=== PATIENT | female | born 1935 | race Caucasian/White ===

== ENCOUNTER 2019-03-05 18:00 | Inpatient (IN) | payer MEDICARE, MEDICAID ==
[~2019-03-05] VITALS: Ht 172.7 cm; Wt 65.5 kg
[2019-03-05] MEDS ORDERED: PANTOPRAZOLE SO40 MG ORAL (18:12)
[2019-03-05] MEDS ORDERED: ARICEPT10 MG ORAL (18:12)
[2019-03-05 18:13] VITALS: BP 115/60
--- NOTE | 2019-03-05 18:13 | NUR ---
ED Nurse Note: Pt from [facility] brought in by EMS due to decrease in appetite and encephalopathy x 1 week. denies pain or CP. Noted pt to ask repetitive questions. AAO x1 (her name), follows commands with non labored breathing. Fall precautions are implemented: Side rails up, bed in lowest position.
--- NOTE | 2019-03-05 18:50 | Emergency Room Report ---
History of Present Illness General Chief Complaint: Generalized Weakness Source: Patient, Medical Record Present Illness HPI 84-year-old female history of dementia presents with failure to thrive, x1 day, patient according to nursing notes has not eating, unknown aggravating relieving factors, severity is moderate, constant, patient states she feels fine however she is currently demented, she keeps talking about [place]. Allergies: Coded Allergies: No Known Allergies (Unverified , 03/05/19) Patient History Limited by: medical condition - Dementia Now: No Reviewed Nursing Documentation: PMH: Agreed; PSxH: Agreed Nursing Documentation-PMH Past Medical History: No History, Except For Hx Hypertension: Yes Hx COPD: Yes Hx Gastrointestinal Problems: Yes - GERD Review of Systems All Other Systems: negative except mentioned in HPI Physical Exam Vital Signs Date Time Temp Pulse Resp B/P (MAP) Pulse Ox O2 Delivery O2 Flow Rate FiO2 03/05/19 18:03 97.9 87 18 109/55 (73) 99 Room Air Sp02 EP Interpretation: reviewed, normal General Appearance: well appearing, no apparent distress, alert Head: normocephalic, atraumatic Eyes: bilateral eye PERRL, bilateral eye EOMI ENT: uvula midline, dry mucus membranes Neck: supple, thyroid normal, supple/symm/no masses Respiratory: lungs clear, no respiratory distress, no retraction, no accessory muscle use Cardiovascular #1: normal peripheral pulses, regular rate, rhythm, no edema, no gallop, no murmur Gastrointestinal: non tender, soft, no guarding, no rebound Musculoskeletal: normal inspection Neurologic: alert, oriented x3 Psychiatric: mood/affect normal Skin: no rash, warm/dry Medical Decision Making Diagnostic Impression: Primary Impression: Failure to thrive Qualified Codes: R62.7 - Adult failure to thrive Additional Impression: Dehydration ER Course 84-year-old female history of dementia presents with altered mental status, failure to thrive, dehydration, differential diagnosis includes mention UTI, sepsis, patient afebrile here, low suspicion for sepsis, patient seems uncooperative, patient requires multiple re-directive questions, Patient with an elevated BUN to creatinine ratio, patient with dry mucous membranes will rehydrate patient here Attempted to get a CT brain, patient refused would not stay still, low suspicion for any acute intracranial pathology. Patient admitted to Dr. Winters EKG Diagnostic Results EKG Time: 18:32 EP Interpretation: NSR, rate 79, QTc 424, no acute ST elevations, normal axis Rhythm Strip Diag. Results Rhythm Strip Time: 20:12 EP Interpretation: yes Rate: 70 Rhythm: NSR, no PVC's, no ectopy Chest X-Ray Diagnostic Results Chest X-Ray Diagnostic Results : Chest X-Ray Ordered: Yes # of Views/Limited/Complete: 1 View Indication: Other - Weakness EP Interpretation: Yes Interpretation: no consolidation, no effusion, no pneumothorax, no acute cardiopulmonary disease Impression: No acute disease Electronically Signed by: Matthias Garrido MD Last Vital Signs Date Time Temp Pulse Resp B/P (MAP) Pulse Ox O2 Delivery O2 Flow Rate FiO2 03/05/19 18:03 97.9 87 18 109/55 (73) 99 Room Air Disposition: ADMITTED INPATIENT Condition: Stable Referrals: NON PHYSICIAN (PCP) Mtathias Garrido MD Mar 05, 2019 18:50
--- NOTE | 2019-03-05 18:50 | NUR ---
ED Nurse Note: Pt taken to CT and stable.
--- NOTE | 2019-03-05 19:05 | NUR ---
ED Nurse Note: Pt back from CT and staff reports that pt refused procedure. Dr renner was notified.
--- NOTE | 2019-03-05 19:14 | NUR ---
HAND-OFF: Report given to mil WILLIS.
[2019-03-05 19:29] LABS: BASOPHILS % (AUTO) 0.7 % (0.0-2.0); EOSINOPHILS % (AUTO) 1.7 % (0.0-3.0); HEMATOCRIT 43.5 % (37.0-47.0); HEMOGLOBIN 14.2 G/DL (12.0-16.0); MEAN CORPUSCULAR VOLUME 91 FL (80-99); MONOCYTES % (AUTO) 6.4 % (1.0-10.0); NEUTROPHILS % (AUTO) 67.3 % (45.0-75.0); PLATELET COUNT 168 K/UL (150-450); RED BLOOD COUNT 4.79 M/UL (4.20-5.40); RED CELL DISTRIBUTION WIDTH 11.2 % (11.6-14.8); WHITE BLOOD COUNT 7.2 K/UL (4.8-10.8)
[2019-03-05 19:36] LABS: INR 0.9 (0.9-1.1)
[2019-03-05 19:44] LABS: ANION GAP 7 mmol/L (5-15); BLOOD UREA NITROGEN 30 mg/dL (7-18); CALCIUM 9.6 MG/DL (8.5-10.1); CARBON DIOXIDE 29 MMOL/L (21-32); CHLORIDE 104 MMOL/L (98-107); CREATININE 1.2 MG/DL (0.55-1.30); POTASSIUM 3.7 MMOL/L (3.5-5.1); SODIUM 140 MMOL/L (136-145)
[2019-03-05] MEDS ORDERED: Haloperidol 5mg/ml Inj IM ONE (19:45)
[2019-03-05] MEDS ORDERED: LORazepam Inj 2mg/ml 1ml IM ONE (19:45)
[2019-03-05] MEDS ORDERED: DiphenhydrAMINE 50mg/ml Inj IM ONE (19:45)
[2019-03-05 19:52] LABS: AMMONIA 11 umol/L (11-32)
[2019-03-05 19:58] LABS: ALANINE AMINOTRANSFERASE 18 U/L (12-78); ALBUMIN 3.9 G/DL (3.4-5.0); ALKALINE PHOSPHATASE 84 U/L (46-116); ASPARTATE AMINO TRANSFERASE 16 U/L (15-37); BILIRUBIN,TOTAL 0.3 MG/DL (0.2-1.0); CKMB 0.7 NG/ML (0.0-3.6); CREATINE KINASE 56 U/L (26-308); PHOSPHORUS 3.4 MG/DL (2.5-4.9)
--- NOTE | 2019-03-05 21:00 | NUR ---
ED Nurse Note: pT REFUSED STRAIGHT CATH AND VRE SWAB.
--- NOTE | 2019-03-05 21:25 | NUR ---
TRANSFER TO FLOOR: Patient transferred to as ordered, per Dr Winters. Report given to LAZARO Paredes. Belongings and medications given to . Family and or S/O informed of transfer.
[2019-03-05 21:35] VITALS: BP 148/96
[2019-03-05] MEDS ORDERED: Milk of Magnesia 30ml Ud ORAL PRN (22:30)
[2019-03-06] VITALS: BP 145/60
[2019-03-06 04:00] VITALS: BP 140/71
--- NOTE | 2019-03-06 07:34 | NUR ---
HAND-OFF: Report given to Mina Burns RN.
--- NOTE | 2019-03-06 07:38 | NUR ---
NURSE NOTES: PATIENT RECEIVED FROM LAZARO JHAVERI. PATIENT RECEIVED STABLE AND ALERT, EATING BREAKFAST IN BED. PATIENT HAS IV SITE RIGHT A/C CLEAN DRY AND INTACT, SALINE LOCKED. BED IN THE LOW AND LOCKED POSITION WITH BED ALARM ON, NO IV FLUIDS RUNNING. WILL C Addendum: 03/06/19 at 0740 by Mina Burns RN WILL CONTINUE TO MONITOR PATIENT.
[2019-03-06 08:00] VITALS: BP 116/60
--- NOTE | 2019-03-06 08:01 | NUR ---
NURSE NOTES: CALLED [facility] TO ORDER [facility]. [facility] SAID [facility] HAVE NONE AVAILABLE AT THIS TIME AND WILL SEND ONE UP WHEN ONE BECOMES AVAILABLE.
[2019-03-06] MEDS: Donepezil 10mg tab ORAL SCH (09:08)
--- NOTE | 2019-03-06 09:23 | Diagnostic Imaging Report ---
Indication: Shortness of breath Technique: One view of the chest Comparison: none Findings: There is some atelectasis at the left lung base. The remainder of the lungs and pleural spaces are clear. The heart size is normal. Impression: Left lateral basilar atelectasis.
--- NOTE | 2019-03-06 09:30 | NUR ---
RD ASSESSMENT & RECOMMENDATIONS SEE CARE ACTIVITY FOR COMPLETE ASSESSMENT DAILY ESTIMATED NEEDS: Needs based on Cardiac, advanced age 64kg 25-30 kcals/kg 7295-1833 total kcals 1-1.2 g protein/kg 65-78 g total protein 20-25 mL/kg 0229-4316 total fluid mLs NUTRITION DIAGNOSIS: Swallowing difficulty r/t dysphagia, h/o dementia as evidenced by pt on ms ground texture diet, adm w/ reduced po x1 week [employer]. CURRENT DIET: MARIA L ms ground PO DIET RECOMMENDATIONS: W/ poor po intake rec LIBERALIZED REGULAR DIET (texture per REALTIME COURT REPORTER) ADDITIONAL RECOMMENDATIONS: 1) Per SNF-> HT: 5'8" WT: 143# 2) Add Ensure TID w/ meals 3) Kcal count to evaluate po intake adequacy 4) Check lytes daily, replete as needed 5) Weekly weights on calibrated bed scale 6) REALTIME COURT REPORTER eval for appropriate texture for max po intake/ acceptance
[2019-03-06 12:00] VITALS: BP 138/55
[2019-03-06 16:00] VITALS: BP 111/53
[2019-03-06] MEDS ORDERED: Omnipaque-300 100ml vial INJ PRN (19:00)
--- NOTE | 2019-03-06 19:32 | NUR ---
HAND-OFF: Report given to LAZARO JHAVERI.
--- NOTE | 2019-03-06 19:44 | NUR ---
NURSE NOTES: Received patient comfortably sleeping.
--- NOTE | 2019-03-06 19:48 | NUR ---
NURSE NOTES: Left message to Aliyah Chatman( salesperson surgical appliances ) to return call at [phone] for telephone consent for US guided biopsy of left breast mass and CT of chest with contrast.
[2019-03-06 20:00] VITALS: BP 121/64
--- NOTE | 2019-03-06 22:34 | History & Physical ---
History of Present Illness General Date patient seen: Mar 06, 2019 Time patient seen: 10:15 Reason for Hospitalization: Generalized Weakness Present Illness Allergies: Coded Allergies: No Known Allergies (Unverified , 03/05/19) Medication History Scheduled Donepezil Hcl* (Aricept*), 10 MG ORAL DAILY, (Reported) Pantoprazole* (Pantoprazole*), 40 MG ORAL DAILY, (Reported) Patient History Limited by: medical condition History Provided By: Medical Record Healthcare decision maker ANUPAMA MENDOZA Resuscitation status Full Code Advanced Directive on File No Social History Social History: (1) Failure to thrive Review of Systems Review of Symptoms General ROS: She appears very thin Psychological ROS: Schizophrenic Ophthalmic ROS: no visual changes or eye irritation ENT ROS: no nasal congestion, hearing loss, dizziness Allergy and Immunology ROS: no allergic symptoms or urticaria Hematological and Lymphatic ROS: no swollen glands, unusual bleeding or bruising Endocrine ROS: no polyuria, polydipsia, weight changes, temperature intolerance Respiratory ROS: decreased BS Cardiovascular ROS: no chest pain or dyspnea on exertion Gastrointestinal ROS: denies abdominal pain, bright red blood in stool. Musculoskeletal ROS: Markedly reduced lean body mass Neurological ROS: no TIA or stroke symptoms Dermatological ROS: no new or changing skin lesions, rashes or pruritis Left breast mass. Physical Exam Physical Exam General appearance: Thin female not very cooperative which is her baseline Head: Normocephalic, without obvious abnormality, atraumatic Eyes: conjunctivae/corneas clear. PERRL, EOM's intact. Fundi benign Throat: Lips, mucosa, and tongue normal. Dry mucus membrane Neck: supple, symmetrical, trachea midline, no adenopathy, thyroid: not enlarged, symmetric, no tenderness/mass/nodules, no carotid bruit and no JVD Lungs: decreased BS bilateral. No Consolidation Heart: regular rate and rhythm, S1, S2 normal, no murmur, click, rub or gallop Abdomen: soft, non-tender. Bowel sounds normal. No masses, no organomegaly Extremities: extremities normal, atraumatic, no cyanosis or edema Pulses: 2+ and symmetric Skin: Skin color, texture, turgor reduced. No rashes or lesions Neurologic: Grossly normal psychotic and doesn't listen Left breast mass firm. Last 24 Hour Vital Signs Date Time Temp Pulse Resp B/P (MAP) Pulse Ox O2 Delivery O2 Flow Rate FiO2 03/06/19 20:55 Room Air 03/06/19 20:00 98.4 67 20 121/64 (83) 94 03/06/19 16:00 97.5 63 18 111/53 (72) 94 03/06/19 12:00 97.2 57 20 138/55 (82) 96 03/06/19 09:00 Room Air 03/06/19 08:00 97.0 71 19 116/60 (78) 94 03/06/19 04:00 97.8 94 16 140/71 (94) 96 03/06/19 00:00 98.0 90 16 145/60 (88) 97 Height (Feet): 5 Height (Inches): 8.00 Weight (Pounds): 147 Medications Current Medications Medications (Trade) Dose Ordered Sig/León Route PRN Reason Start Time Stop Time Status Last Admin Dose Admin Acetaminophen (Tylenol) 650 mg Q4H PRN ORAL Mild Pain/Temp > 100.5 03/05/19 22:30 04/04/19 22:29 Donepezil HCl (Aricept) 10 mg DAILY ORAL 03/06/19 09:00 04/05/19 08:59 03/06/19 09:08 Iohexol (OMNIPAQUE-300 100ml) 100 ml ONCE PRN INJ RADIOLOGY PROCEDURE 03/06/19 19:00 03/08/19 23:59 Magnesium Hydroxide (Mom) 30 ml DAILYPRN PRN ORAL Constipation 03/05/19 22:30 04/04/19 22:29 Pantoprazole (Protonix) 40 mg DAILY@0630 ORAL 03/06/19 06:30 04/05/19 06:29 Assessment/Plan Problem List: (1) Failure to thrive SNOMED: 71604852 Qualifiers: Qualified Codes: R62.7 - Adult failure to thrive (2) Hypertension ICD Codes: I10 - Essential (primary) hypertension SNOMED: 30555603 (3) Chronic obstructive pulmonary disease (COPD) ICD Codes: J44.9 - Chronic obstructive pulmonary disease, unspecified SNOMED: 60645122 (4) Schizo affective schizophrenia ICD Codes: F25.0 - Schizoaffective disorder, bipolar type SNOMED: 336449210 (5) Dementia ICD Codes: F03.90 - Unspecified dementia without behavioral disturbance SNOMED: 51369640 (6) Breast cancer ICD Codes: C50.919 - Malignant neoplasm of unspecified site of unspecified female breast SNOMED: 565111016 Status: stable Status Narrative Patient with schizophrenia and multiple medical problems, and renal insufficiency has left breast mass. She will have US guided bx CT with contrast of the chest. Surgery consulted already. Will have psych consult. MIPS Hospital declaration INPATIENT level of care is warranted for this patient because patient is a 89 year old with who presents with suspicion of . I have a high level of concern because . Patient is at high risk for . Plan of care/treatment include . Patient care is expected to be greater than 2 midnights. OBSERVATION level of care is warranted for this patient. Patient is a 89 year old with who presents with . Patient will be admitted for 1 midnight, but if additional night(s) is/are necessary, patient will be converted to inpatient status for the entire hospitalization Disposition: Once the patient is stable to leave the hospital, I anticipate the patient will likely be discharged to the following environment: Estimated discharge date: I spent 70 minutes on this patient's case, and minutes was dedicated to counseling and/or care coordination. MIPS ([employer]it-based Incentive Payment System) Applicable CPT: 52710, 10145 CHECK ALL THAT ARE MET: Measure #5 (CHF): All ages. Prescribe JESSENIA/ARB upon discharge for patients with left ventricular systolic dysfunction. If not, the reason is clearly documented in the medical chart. Measure #8 (CHF): All ages. Prescribe a beta karon upon discharge for patients with left ventricular systolic dysfunction. If not, the reason is clearly documented in the medical chart. Measure #47 Advance care plan or surrogate decision maker documented in the medical record. Measure #130 The provider has documented, updated, or reviewed the patients current medication list and has documented it in the patients note. Measure #374 (All): Send report to referring provider. Measure #407(Sepsis due to MSSA bacteremia): Age 18+ Patient treated with a beta-lactam antibiotic (Nafcillin, Oxacillin or Cefazolin) as definitive therapy. MEDICAL COMPLEXITY High complexity medical decision making (need 2/3 categories) Problem - need 4 points Acute/new problem with new plan for workup (4 points, 1 max) Acute/new problem without additional workup (3 points, 1 max) Unstable chronic problem actively being managed (2 point each, 2 max) Stable chronic problem actively being managed (1 point each, 2 max) Self-limited/transient process (constipation, muscle ache, etc) (1 point each , 2 max) Data - need 4 points Reviewed labs/imaging studies (1 points, 2 max) Independent review of imaging (EKG, xrays, etc) (2 points, 2 max) Discussed case with consult/other MD/RN (2 points, 2 max) High Risk - qualify if have one of the following: Severe exacerbation of acute problem, acute mental status change, IV narcotics , monitoring drug levels (vancomycin, INR, tacrolimus etc) Jose Francisco Winters MD Mar 06, 2019 22:34
[2019-03-07] VITALS (7 sets, daily range): BP systolic 111–158; BP diastolic 54–78
--- NOTE | 2019-03-07 07:10 | NUR ---
HAND-OFF: Report given to Mina Burns RN.
--- NOTE | 2019-03-07 07:20 | NUR ---
NURSE NOTES: PATIENT HANDOFF RECEIVED FROM LAZARO JHAVERI. PATIENT OBSERVED IN RESTING IN BED, NO VISIBLE SIGNS OF DISTRESS. PATIENT IV SITE HAS SOME DRIED BLOOD, WILL CHANGE DRESSING AND ASSESS IV SITE AND REPLACE IF NECESSARY. BED IS IN THE LOW AND LOCKED POSITION WITH CALL LIGHT IN REACH. WILL CONTINUE TO MONITOR PATIENT.
[2019-03-07] MEDS: Donepezil 10mg tab ORAL SCH (08:05)
--- NOTE | 2019-03-07 11:00 | NUR ---
NURSE NOTES: CONTACTED DR SANTIAGO AFTER RADIOLOGY MENTIONED THAT HOSPITAL POLICY IS NOT TO SCREEN INPATIENTS FOR MALIGNANCY AND ALSO TO INFORM THE DR THAT WE DO NOT HAVE A MAMMOGRAM MACHINE AT THE HOSPITAL, THEREFORE THE NEEDLE BIOPSY COULD NOT BE PERFORMED. DR STATED THAT HE WANTED JUST THE CT WITH CONTRAST. INFORMED DR THAT PATIENT CANNOT GIVE CONSENT NOR CAN THE CONSERVATOR THE PROCEDURE IS INVASIVE. TOLD PATIENT HE NEEDS TO CHART THAT THE PATIENT NEEDS THE PROCEDURE IN ORDER TO GET ROUND THE CONSENT. DR SANTIAGO STATED HE WOULD PUT THIS IN THE NOTES.
--- NOTE | 2019-03-07 11:46 | NUR ---
NURSE NOTES: PATIENT CONFUSED AND AGITATED STATING; " I AM [facility], I CAN DO WHAT I LIKE" DOES NOT UNDERSTAND WHERE SHE IS AND KEEPS SAYING SHE IS GOING TO GO HOME. PROVIDED REALITY ORIENTATION TO PATIENT AND EXPLAINED THAT SHE IS IN THE HOSPITAL, BUT PATIENT PERSISTS TO GET OUT OF BED. PATIENT IS WEAK AND UNSTEADY AND I AM CONCERNED FOR PATIENT SAFETY WITH REGARDS TO FALL RISK. PATIENT ALSO REMOVED IV SITE. DUE TO PATIENTS AGITATION I AM ADMINISTERING THE PRN ATIVAN.
[2019-03-07] MEDS: LORazepam 1mg tab ORAL PRN ×2 (11:51→22:10)
--- NOTE | 2019-03-07 13:28 | General Progress Note ---
Assessment/Plan Problem List: (1) Failure to thrive in adult ICD Codes: R62.7 - Failure to thrive in adult SNOMED: 245702663 Qualifiers: Qualified Codes: R62.7 - Adult failure to thrive (2) Hypertension ICD Codes: I10 - Essential (primary) hypertension SNOMED: 29175623 (3) Chronic obstructive pulmonary disease (COPD) ICD Codes: J44.9 - Chronic obstructive pulmonary disease, unspecified SNOMED: 49321177 (4) Schizo affective schizophrenia ICD Codes: F25.0 - Schizoaffective disorder, bipolar type SNOMED: 735441123 (5) Dementia ICD Codes: F03.90 - Unspecified dementia without behavioral disturbance SNOMED: 26995734 (6) Breast cancer ICD Codes: C50.919 - Malignant neoplasm of unspecified site of unspecified female breast SNOMED: 330693486 Status: stable Status Narrative She is stable. She will need further evaluation of her chest to see if she has any significant lymphadenopathy. She need to have CT of chest with contrast. Her renal function is stable and she can be given contrast for the study. Assessment/Plan: She will be discharged and she will have US guided bx of mammogram as outpatient. Following that surgical evaluation. Subjective Date patient seen: Mar 07, 2019 ROS Limited/Unobtainable: Yes Constitutional: Reports: no symptoms HEENT: Reports: no symptoms Cardiovascular: Reports: no symptoms Respiratory: Reports: no symptoms Gastrointestinal/Abdominal: Reports: no symptoms Genitourinary: Reports: no symptoms Neurologic/Psychiatric: Reports: no symptoms Endocrine: Reports: no symptoms Hematologic/Lymphatic: Reports: no symptoms Allergies: Coded Allergies: No Known Allergies (Unverified , 03/05/19) Objective Last 24 Hour Vital Signs Date Time Temp Pulse Resp B/P (MAP) Pulse Ox O2 Delivery O2 Flow Rate FiO2 03/07/19 12:00 98.1 98 20 141/74 (96) 98 03/07/19 08:13 Room Air 03/07/19 08:00 98.1 93 20 145/72 (96) 100 03/07/19 04:00 99.0 85 20 141/61 (87) 94 03/07/19 00:00 99.1 74 18 153/78 (103) 94 03/06/19 20:55 Room Air 10/10/19 20:00 98.4 67 20 121/64 (83) 94 03/06/19 16:00 97.5 63 18 111/53 (72) 94 Intake and Output 03/06/19 03/07/19 18:59 06:59 Intake Total 1300 ml 200 ml Output Total 4 ml Balance 1296 ml 200 ml Intake Oral 1300 ml 200 ml Output Urine Total 4 ml # Voids 4 3 # Bowel Movements 3 Height (Feet): 5 Height (Inches): 8.00 Weight (Pounds): 147 General Appearance: no apparent distress EENT: PERRL/EOMI Neck: non-tender Cardiovascular: normal peripheral pulses Respiratory/Chest: lungs clear Abdomen: normal bowel sounds, non tender, soft Extremities: normal range of motion, non-tender Edema: no edema noted Arm (L), no edema noted Arm (R), no edema noted Leg (L), no edema noted Leg (R), no edema noted Pedal (L), no edema noted Pedal (R), no edema noted Generalized Neurologic: soil 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
--- NOTE | 2019-03-07 14:17 | General Surgery Progress Note ---
General Surgery-Progress Note Subjective Chief Complaint: lump in left breast Objective Last 24 Hour Vital Signs Date Time Temp Pulse Resp B/P (MAP) Pulse Ox O2 Delivery O2 Flow Rate FiO2 03/07/19 12:00 98.1 98 20 141/74 (96) 98 03/07/19 08:13 Room Air 03/07/19 08:00 98.1 93 20 145/72 (96) 100 03/07/19 04:00 99.0 85 20 141/61 (87) 94 03/07/19 00:00 99.1 74 18 153/78 (103) 94 03/06/19 20:55 Room Air 03/06/19 20:00 98.4 67 20 121/64 (83) 94 03/06/19 16:00 97.5 63 18 111/53 (72) 94 I&O Intake and Output 03/06/19 03/07/19 19:00 07:00 Intake Total 1300 ml 200 ml Output Total 4 ml Balance 1296 ml 200 ml Intake Oral 1300 ml 200 ml Output Urine Total 4 ml # Voids 4 3 # Bowel Movements 3 Respiratory: clear Abdomen: soft, flat, non-tender, present bowel sounds Additional Comments left breast hard mass one inch in diameter margines not clear but mobile suspicious for malignancy Assessment Additional Comments Left breast mass R/O malignancy Plan Additional Comments requires excisional biopsy but there is problem about consent Christos Barrientos MD Mar 07, 2019 14:17
--- NOTE | 2019-03-07 14:32 | NUR ---
NURSE NOTES: PATIENT RESTING COMFORTABLY IN BED, NO SIGNS OF AGITATION OR ANXIETY.
--- NOTE | 2019-03-07 15:13 | Consultation ---
History of Present Illness General Chief Complaint: Generalized Weakness Present Illness Allergies: Coded Allergies: No Known Allergies (Unverified , 03/05/19) Medication History Scheduled Donepezil Hcl* (Aricept*), 10 MG ORAL DAILY, (Reported) Pantoprazole* (Pantoprazole*), 40 MG ORAL DAILY, (Reported) Patient History Healthcare decision maker ANUPAMA MENDOZA Resuscitation status Full Code Advanced Directive on File No Physical Exam Last 24 Hour Vital Signs Date Time Temp Pulse Resp B/P (MAP) Pulse Ox O2 Delivery O2 Flow Rate FiO2 03/07/19 12:00 98.1 98 20 141/74 (96) 98 03/07/19 08:13 Room Air 03/07/19 08:00 98.1 93 20 145/72 (96) 100 03/07/19 04:00 99.0 85 20 141/61 (87) 94 03/07/19 00:00 99.1 74 18 153/78 (103) 94 03/06/19 20:55 Room Air 03/06/19 20:00 98.4 67 20 121/64 (83) 94 03/06/19 16:00 97.5 63 18 111/53 (72) 94 Intake and Output 03/06/19 03/07/19 19:00 07:00 Intake Total 1300 ml 200 ml Output Total 4 ml Balance 1296 ml 200 ml Intake Oral 1300 ml 200 ml Output Urine Total 4 ml # Voids 4 3 # Bowel Movements 3 Height (Feet): 5 Height (Inches): 8.00 Weight (Pounds): 147 Medications Current Medications Medications (Trade) Dose Ordered Sig/León Route PRN Reason Start Time Stop Time Status Last Admin Dose Admin Acetaminophen (Tylenol) 650 mg Q4H PRN ORAL Mild Pain/Temp > 100.5 03/05/19 22:30 04/04/19 22:29 Donepezil HCl (Aricept) 10 mg DAILY ORAL 03/06/19 09:00 04/05/19 08:59 03/07/19 08:05 Iohexol (OMNIPAQUE-300 100ml) 100 ml ONCE PRN INJ RADIOLOGY PROCEDURE 03/06/19 19:00 03/08/19 23:59 Lorazepam (Ativan) 2 mg Q6H PRN ORAL For Anxiety 03/06/19 22:45 03/13/19 22:44 03/07/19 11:51 Magnesium Hydroxide (Mom) 30 ml DAILYPRN PRN ORAL Constipation 03/05/19 22:30 04/04/19 22:29 Pantoprazole (Protonix) 40 mg DAILY@0630 ORAL 03/06/19 06:30 04/05/19 06:29 03/07/19 06:02 Assessment/Plan Assessment/Plan: Oncology Consultation KATHLEEN MD: Dennis Winters RFC: Left beast lump r/o cancer DOS: 03/07/19 ID 84-year-old female history of dementia presents with failure to thrive, x1 day, patient according to nursing notes has not eating, unknown aggravating relieving factors, severity is moderate, constant, patient states she feels fine however she is currently demented, she keeps talking about [place]. Onc was consulted for breast mass, at this time have issue obtaining consent to do a biopsy of the left breast, surgeon has seen her. Allergies: No Known Allergies (Unverified , 03/05/19) Patient History Limited by: medical condition - Dementia Now: No Reviewed Nursing Documentation: PMH: Agreed; PSxH: Agreed Nursing Documentation - PMH Past Medical History: No History, Except For Hx Hypertension: Yes Hx COPD: Yes Hx Gastrointestinal Problems: Yes - GERD Review of Systems All Other Systems: negative except mentioned in HPI Physical Exam Vitals: reviewed General Appearance: NAD HEENT: normocephalic, atraumatic Neck: non-tender, normal alignment Breast: left breast with 1-2 cm mass, mobile, difficult to access borders Respiratory/Chest: normal breath sounds bilaterally Cardiovascular/Chest: normal peripheral pulses, normal rate Abdomen: normal bowel sounds, soft, nontender Extremities: normal range of motion Labs: noted Imaging: reviewed Assessment and Recs; # Left breast mass with soft borders --> reviewed clinical exam, still needs to have a mammo done --> excisional biopsy v us guided biopsy --> agree with ct with contrast of chest for local staging --> seen by surg, needs consent, have called them and dw RN # Failure to thrive (FTT) - decreased bmi and low protein --> have ordered for cea level --> will obtain q3 day caloric counts --> may consider mirtazapine as appetite stimulant --> GI consult on a prn basis, as needed for endosc # Dehydration --> ivf have been given # Confusion --> potentially dementia related --> psych eval prn --> has conservator # Dvt oox scds The timing of this note does not necessarily reflect the time of the patient was seen. Greatly appreciate consultation. Josué Viera MD Mar 07, 2019 15:13
--- NOTE | 2019-03-07 16:15 | Consultation ---
DATE OF CONSULTATION: 03/07/2019 REASON FOR CONSULTATION: Mass in the left breast. HISTORY OF PRESENT ILLNESS: This is an 84-year-old female with dementia and few medical problems was admitted to hospital for failure to thrive. The physical examination had shown the lump in her left breast. The patient has dementia and it is not clear how long she has had the mass. There is no history of weight loss. There is no history of mammogram. The only history has been obtained from the file and the physician. PAST MEDICAL HISTORY: Apparently she is not allergic to any medication. She has history of COPD, hypertension, dementia, and there is a question about schizophrenia. PAST SURGICAL HISTORY: The patient denies any surgeries but she has a scar of midline incision below the umbilicus. MEDICATIONS: She is on Aricept and PIP, pantoprazole. SOCIAL HISTORY: The patient is an 84-year-old female, resident of care home. There is no history of drinking and smoking. REVIEW OF SYSTEMS: Unobtainable due to the dementia. PHYSICAL EXAMINATION: GENERAL: The patient appeared to be a well-developed, well-nourished, 84-year-old female lying in bed, in no acute distress. HEENT: Head, normocephalic and atraumatic. Eyes, pupils have sluggish reaction. Mouth is clear but edentulous. NECK: There is no palpable thyromegaly or adenopathy. CHEST: Clear to auscultation and percussion. HEART: There is no gallop or murmur. S1 and S2 are within normal limits. BREASTS: Large and symmetrical. There is no skin and nipple changes. She has a palpable mass in the left lower quadrant of the left breast. This is on the lateral lower quadrant of the left breast, this mass is about 1 inch in diameter, hard. The margins are not clear but it is a mobile. Axilla, there is no adenopathy. ABDOMEN: Soft and flat. There is no palpable organomegaly. She has a scar of the midline incision below the umbilicus. EXTREMITIES: Within normal limits. ASSESSMENT: Left breast mass. RECOMMENDATIONS: The patient requires excisional biopsy of this mass but at this time the patient has dementia and consent has to be obtained as conservator. Christos Barrientos M.D. DR: Sonya JOB#: [id number] CC:
--- NOTE | 2019-03-07 19:03 | NUR ---
NURSE NOTES: I WAS ADVISED BY ONLINE EDITOR THAT DOCTOR CAN OVERWRITE CONSENT IF THE PROCEDURE IS EMERGENT AND NECESSARY, TOLD THIS TO DR BYRNE AND INFORMED HIM HE WOULD NEED TO WRITE THIS IN HIS NOTES. COULD NOT FIND ANY NOTES FROM DR HERNANDEZ STATING THAT THE PROCEDURE IS NECESSARY AND EMERGENT AND THEREFORE CAN BE DONE WITHOUT CONSENT FROM THE PATIENT. THE CONSERVATOR CANNOT GIVE CONSENT FOR INVASIVE PROCEDURES. NOT SURE WHAT CAN BE DONE IN THIS SITUATION. I
--- NOTE | 2019-03-07 19:55 | NUR ---
NURSE NOTES: Received patient awake,verbal,confused,follows simple command,resting in bed comfortably without complaints.
--- NOTE | 2019-03-07 19:59 | NUR ---
HAND-OFF: Report given to LAZARO JHAVERI.
--- NOTE | 2019-03-08 03:15 | NUR ---
NURSE NOTES: Received pt to continue care. Pt AAO x 1, confused, wondering around. On room air. IV site intact. Fall risk maintained. Bed locked, lowest position, side rails up x 2, call light within reach. Will continue to monitor.
--- NOTE | 2019-03-08 03:18 | NUR ---
HAND-OFF: Report given to Nazia Inman RN.
[2019-03-08 04:00] VITALS: BP 139/68
--- NOTE | 2019-03-08 05:15 | Consultation ---
DATE OF CONSULTATION: CONSULTING PHYSICIAN: Owen Higgins M.D. HISTORY OF PRESENT ILLNESS: The patient is an 84-year-old female with a history of schizoaffective disorder, chronic obstructive pulmonary disease, dementia, breast cancer, hypertension, failure to thrive, who has been admitted to the hospital for medical stabilization. The patient is presenting with waxing and waning consciousness, episodes of agitation. Upon my evaluation, the patient was a poor historian, was unable to answer the questions. She was moaning. She did not know that she was in the hospital. The patient was unable to understand, process, communicate in a rational manner. PAST PSYCHIATRIC HISTORY: Schizophrenia, dementia. PAST MEDICAL HISTORY: Chronic obstructive pulmonary disease, hypertension, failure to thrive. ALLERGIES: No known drug allergies. SUBSTANCE ABUSE HISTORY: No known history of illicit drug use or alcohol. MENTAL STATUS EXAMINATION: The patient is asleep, arousable, confused, disoriented. Mood is neutral. Affect is flat. Thought process, there is a paucity of thought content. Thought content, no suicidal or homicidal ideation. ASSESSMENT: [place] I Schizophrenia by history. Dementia. [place] II Deferred. [place] III As above. [place] IV Low. [place] V 20. PLAN: 1. The patient will be started on Zyprexa. 2. The patient lacks capacity to make decisions. 3. Provide the patient with reality orientation and supportive therapy. Owen Higgins M.D. DR: KURT JOB#: [id number] CC:
--- NOTE | 2019-03-08 07:22 | NUR ---
HAND-OFF: Report given to LAZARO Benton.
--- NOTE | 2019-03-08 07:36 | NUR ---
NURSE NOTES: Patient received in stable condition, resting in bed. Breathing unlabored on room air. No signs of SOB or pain observed. IV site on right arm patent and intact. Bed locked in lowest position, bed alarm is on. Call light placed within reach, will continue to monitor.
[2019-03-08 08:00] VITALS: BP 120/72
[2019-03-08] MEDS: LORazepam 1mg tab ORAL PRN ×2 (08:15→18:16)
--- NOTE | 2019-03-08 11:12 | NUR ---
NURSE NOTES: RN attempted to reach patient's conservatory Zaida Chatman for consent for procedure. Voicemail left requesting a return call. Unit phone number provided.
[2019-03-08 12:00] VITALS: BP 125/68
[2019-03-08] MEDS: OLANZapine 2.5mg tab ORAL SCH ×2 (12:51→17:16)
[2019-03-08 16:00] VITALS: BP 130/72
--- NOTE | 2019-03-08 17:26 | Cardiology Report ---
APPROVED REPORT EKG Measurement Heart [id number] Normal sinus rhythm Possible Left atrial enlargement Borderline ECG
--- NOTE | 2019-03-08 18:03 | NUR ---
NURSE NOTES: Unable to maintain IV site, PMD made aware.
--- NOTE | 2019-03-08 19:15 | NUR ---
NURSE NOTES: Received pt resting in bed. Pt AAO x 1, confused, unsteady gait, trying to get out of bed. Bilateral soft wrist restraints applied per Dr. Higgins. No IV access, MD aware. Fall risk maintained. Bed locked, lowest position, side rails up x 2, call light within reach. Will continue to monitor.
--- NOTE | 2019-03-08 19:25 | NUR ---
HAND-OFF: Report given to Nazia WILLIS.
[2019-03-08 20:00] VITALS: BP 145/83
[2019-03-09] VITALS: BP 148/84
[2019-03-09 04:00] VITALS: BP 126/70
--- NOTE | 2019-03-09 04:30 | Progress Note ---
DATE: 03/08/2019 SUBJECTIVE: The patient is more agitated today. Attempting to get out of bed and was unmanageable. The patient has been receiving the olanzapine. The patient has poor cognition and is unable to answer the questions. MENTAL STATUS EXAMINATION: The patient is disoriented and confused. Mood is agitated. Affect is flat. Thought process, there is a paucity of thought content. Thought content, no suicidal or homicidal ideation. Cognition is impaired. ASSESSMENT: Dementia with behavior disturbance. PLAN: We will continue to follow and readjust the medications. Owen Higgins M.D. DR: RENETTA JOB#: [id number] CC: JD
--- NOTE | 2019-03-09 07:31 | NUR ---
HAND-OFF: Report given to LAZARO Argueta. Addendum: 03/09/19 at 0737 by Ellie Ritchie RN ERROR: LAZARO Mandujano on wrong account
--- NOTE | 2019-03-09 07:40 | NUR ---
NURSE NOTES: Received report from LAZARO Mandujano. Patient sleeping. On room air, no signs of distress or labored breathing. No IV access. MD aware. Restraints on, bilateral soft wrist. Bed in lowest position. Will continue to monitor.
[2019-03-09 08:00] VITALS: BP 125/70
--- NOTE | 2019-03-09 11:26 | General Progress Note ---
Assessment/Plan Problem List: (1) Failure to thrive in adult ICD Codes: R62.7 - Failure to thrive in adult SNOMED: 417775889 Qualifiers: Qualified Codes: R62.7 - Adult failure to thrive (2) Hypertension ICD Codes: I10 - Essential (primary) hypertension SNOMED: 09905670 (3) Chronic obstructive pulmonary disease (COPD) ICD Codes: J44.9 - Chronic obstructive pulmonary disease, unspecified SNOMED: 44906856 (4) Schizo affective schizophrenia ICD Codes: F25.0 - Schizoaffective disorder, bipolar type SNOMED: 659569022 (5) Dementia ICD Codes: F03.90 - Unspecified dementia without behavioral disturbance SNOMED: 79693956 (6) Breast cancer ICD Codes: C50.919 - Malignant neoplasm of unspecified site of unspecified female breast SNOMED: 841796094 Status: stable, other - Very aggitated Assessment/Plan: She will be discharged and she will have US guided bx of mammogram as outpatient. Following that surgical evaluation. patient is agitated and being evaluated by psychiatry. Will discharge when neuro status improves Subjective Date patient seen: Mar 08, 2019 Time patient seen: 19:00 ROS Limited/Unobtainable: Yes Constitutional: Reports: other - confused HEENT: Reports: no symptoms Cardiovascular: Reports: no symptoms Respiratory: Reports: cough Gastrointestinal/Abdominal: Reports: no symptoms Genitourinary: Reports: no symptoms Neurologic/Psychiatric: Reports: weakness, other - very aggitated and needs restraint Endocrine: Reports: no symptoms Hematologic/Lymphatic: Reports: no symptoms Allergies: Coded Allergies: No Known Allergies (Unverified , 03/05/19) Objective Last 24 Hour Vital Signs Date Time Temp Pulse Resp B/P (MAP) Pulse Ox O2 Delivery O2 Flow Rate FiO2 03/09/19 09:00 Room Air 03/09/19 08:00 97.7 79 18 125/70 (88) 92 03/09/19 04:00 97.2 85 20 126/70 (88) 96 03/09/19 00:00 97.5 80 20 148/84 (105) 96 03/08/19 20:16 Room Air 03/08/19 20:00 97.7 88 20 145/83 (103) 96 03/08/19 16:00 97.7 90 18 130/72 (91) 96 03/08/19 12:00 97.7 92 18 125/68 (87) 95 Intake and Output 03/08/19 03/09/19 19:00 07:00 Intake Total 200 ml Balance 200 ml Intake Oral 200 ml # Voids 4 3 Height (Feet): 5 Height (Inches): 8.00 Weight (Pounds): 147 General Appearance: agitated EENT: PERRL/EOMI Neck: non-tender Cardiovascular: regular rhythm Respiratory/Chest: lungs clear, other - Left breast mass Abdomen: normal bowel sounds Extremities: normal range of motion Edema: no edema noted Arm (L), no edema noted Arm (R), no edema noted Leg (L), no edema noted Leg (R), no edema noted Pedal (L), no edema noted Pedal (R), no edema noted Generalized Neurologic: alert, motor weakness, disoriented Skin: normal pigmentation Jose Francisco Winters MD Mar 09, 2019 11:26
[2019-03-09 12:00] VITALS: BP 124/69
--- NOTE | 2019-03-09 13:33 | Hematology/Onc Progress Note ---
Assessment/Plan Assessment/Plan Assessment and Recs; # Left breast mass with soft borders on exam, requires conservator for bx --> reviewed clinical exam, still needs to have a mammo done --> excisional biopsy v us guided biopsy --> agree with ct with contrast of chest for local staging --> seen by surg, needs consent, have called them and jose RN # Failure to thrive (FTT) - decreased bmi and low protein --> have ordered for cea level --> will obtain q3 day caloric counts --> may consider mirtazapine as appetite stimulant --> GI consult on a prn basis, as needed for endosc # Dehydration --> ivf have been given --> bmp ordered # Confusion --> potentially dementia related --> psych eval prn --> has conservator # Dvt oox scds The timing of this note does not necessarily reflect the time of the patient was seen. Greatly appreciate consultation. Subjective Constitutional: Denies: no symptoms, chills, fever, malaise, weakness, other HEENT: Denies: no symptoms, eye pain, blurred vision, tearing, double vision, ear pain, ear discharge, nose pain, nose congestion, throat pain, throat swelling, mouth pain, mouth swelling, other Cardiovascular: Denies: no symptoms, chest pain, edema, irregular heart rate, lightheadedness, palpitations, syncope, other Genitourinary: Denies: no symptoms, burning, discharge, frequency, flank pain, hematuria, incontinence, pain, urgency, other Endocrine: Denies: no symptoms, excessive sweating, flushing, intolerance to cold, intolerance to heat, increased hunger, increased thirst, increased urine, unexplained weight gain, unexplained weight loss, other Allergies: Coded Allergies: No Known Allergies (Unverified , 03/05/19) Subjective 10.13: remains altered, seen by [facility], potential dc once improves ams Objective Objective Current Medications Medications (Trade) Dose Ordered Sig/León Route PRN Reason Start Time Stop Time Status Last Admin Dose Admin Acetaminophen (Tylenol) 650 mg Q4H PRN ORAL Mild Pain/Temp > 100.5 03/05/19 22:30 04/04/19 22:29 Lorazepam (Ativan) 2 mg Q6H PRN ORAL For Anxiety 03/06/19 22:45 03/13/19 22:44 03/08/19 18:16 Magnesium Hydroxide (Mom) 30 ml DAILYPRN PRN ORAL Constipation 03/05/19 22:30 04/04/19 22:29 Olanzapine (ZyPREXA) 5 mg TID ORAL 03/09/19 09:00 04/08/19 08:59 03/09/19 09:12 Pantoprazole (Protonix) 40 mg DAILY@0630 ORAL 03/06/19 06:30 04/05/19 06:29 03/09/19 06:07 Last 24 Hour Vital Signs Date Time Temp Pulse Resp B/P (MAP) Pulse Ox O2 Delivery O2 Flow Rate FiO2 03/09/19 09:00 Room Air 03/09/19 08:00 97.7 79 18 125/70 (88) 92 03/09/19 04:00 97.2 85 20 126/70 (88) 96 03/09/19 00:00 97.5 80 20 148/84 (105) 96 03/08/19 20:16 Room Air 03/08/19 20:00 97.7 88 20 145/83 (103) 96 03/08/19 16:00 97.7 90 18 130/72 (91) 96 03/08/19 12:00 97.7 92 18 125/68 (87) 95 03/08/19 09:00 Room Air 03/08/19 08:00 97.8 89 20 120/72 (88) 95 03/08/19 04:00 98.0 97 19 139/68 (91) 97 03/07/19 23:48 97.8 97 20 111/71 (84) 97 03/07/19 20:06 Room Air 03/07/19 20:00 97.3 82 19 158/76 (103) 97 03/07/19 16:00 97.5 83 20 129/54 (79) 96 Intake and Output 03/08/19 03/09/19 19:00 07:00 Intake Total 200 ml Balance 200 ml Intake Oral 200 ml # Voids 4 3 Height (Feet): 5 Height (Inches): 8.00 Weight (Pounds): 147 Objective Vitals: reviewed General Appearance: NAD HEENT: normocephalic, atraumatic Neck: non-tender, normal alignment Breast: left breast with 1-2 cm mass, mobile, difficult to access borders Respiratory/Chest: normal breath sounds bilaterally Cardiovascular/Chest: normal peripheral pulses, normal rate Abdomen: normal bowel sounds, soft, nontender Extremities: normal range of motion Josué Viera MD Mar 09, 2019 13:33
[2019-03-09 16:00] VITALS: BP 130/81
--- NOTE | 2019-03-09 17:00 | NUR ---
NURSE NOTES: Patient will have CT of chest with contrast on Sunday, per Dr. Winters. Patient has no family to signs and conservator said they cannot sign. Dr. Winters will consent. Charge nurse aware.
--- NOTE | 2019-03-09 19:41 | NUR ---
HAND-OFF: Report given to LAZARO Luong.
[2019-03-09 20:07] VITALS: BP 133/75
--- NOTE | 2019-03-09 21:30 | NUR ---
NURSE NOTE: Pt is oriented to self, VS are stable. Orders reviewed. Pt is uncooperative with physical assessment and kept repeating, "Don't touch me". Soft wrist restraints are intact, pulses are palpable and capillary refill is +2 on each hand. No evidence of skin break down on wrists. Refused to wear SCD's. Bed is low and locked with alarm activated. Call elizondo is within reach. Will continue to monitor.
[2019-03-10] VITALS: BP 126/67
[2019-03-10 04:10] VITALS: BP 118/68
--- NOTE | 2019-03-10 04:22 | NUR ---
NURSE NOTE: Pt has began desating in the mid to high 80's on room air with 0000 VS. O2 at 2 L NC initiated, however, patient remained in 80's. O2 titrated to 3L, pt sats now in low to mid 90's. Will continue to monitor.
[2019-03-10 07:05] LABS: HEMATOCRIT 47.2 % (37.0-47.0); HEMOGLOBIN 15.5 G/DL (12.0-16.0); MEAN CORPUSCULAR VOLUME 90 FL (80-99); PLATELET COUNT 175 K/UL (150-450); RED BLOOD COUNT 5.25 M/UL (4.20-5.40); RED CELL DISTRIBUTION WIDTH 12.2 % (11.6-14.8); WHITE BLOOD COUNT 13.6 K/UL (4.8-10.8)
--- NOTE | 2019-03-10 07:21 | NUR ---
HAND-OFF: Report given to Carmen.
--- NOTE | 2019-03-10 07:45 | NUR ---
NURSE NOTES: Patient received in stable condition, sleeping in bed. Breathing unlabored with nasal cannula. Bilateral soft restraints on wrists, circulation intact. HOB elevated, bed locked in lowest position. Call light placed within reach, will continue to monitor.
[2019-03-10 08:00] VITALS: BP 124/67
--- NOTE | 2019-03-10 09:07 | Hematology/Onc Progress Note ---
Assessment/Plan Assessment/Plan Assessment and Recs; # Left breast mass with soft borders on exam, requires conservator for bx --> reviewed clinical exam, still needs to have a mammo done --> excisional biopsy v us guided biopsy (meed consent) --> agree with ct with contrast of chest for local staging --> seen by surg, needs consent, have called them and balaji RN --> signed consent for scan # Failure to thrive (FTT) - decreased bmi and low protein --> have ordered for cea level --> will obtain q3 day caloric counts --> may consider mirtazapine as appetite stimulant --> GI consult on a prn basis, as needed for endosc # Dehydration --> ivf have been given --> bmp ordered # Confusion --> potentially dementia related --> psych eval prn --> has conservator # Dvt ppx lovenox sq The timing of this note does not necessarily reflect the time of the patient was seen. Greatly appreciate consultation. Subjective Constitutional: Denies: no symptoms, chills, fever, malaise, weakness, other HEENT: Denies: no symptoms, eye pain, blurred vision, tearing, double vision, ear pain, ear discharge, nose pain, nose congestion, throat pain, throat swelling, mouth pain, mouth swelling, other Cardiovascular: Denies: no symptoms, chest pain, edema, irregular heart rate, lightheadedness, palpitations, syncope, other Respiratory: Denies: no symptoms, cough, shortness of breath, SOB with excertion, SOB at rest, sputum, wheezing, other Gastrointestinal/Abdominal: Denies: no symptoms, abdomen distended, abdominal pain, black stools, tarry stools, blood in stool, constipated, diarrhea, difficulty swallowing, nausea, poor appetite, poor fluid intake, rectal bleeding , vomiting, other Neurologic/Psychiatric: Denies: no symptoms, anxiety, depressed, emotional problems, headache, numbness, paresthesia, pre-existing deficit, seizure, tingling, tremors, weakness, other Allergies: Coded Allergies: No Known Allergies (Unverified , 03/05/19) Subjective .13: remains altered, seen by [facility], potential dc once improves ams 03/10: Balaji rn, consent for scan was signed Objective Objective Current Medications Medications (Trade) Dose Ordered Sig/León Route PRN Reason Start Time Stop Time Status Last Admin Dose Admin Acetaminophen (Tylenol) 650 mg Q4H PRN ORAL Mild Pain/Temp > 100.5 03/05/19 22:30 04/04/19 22:29 Lorazepam (Ativan) 2 mg Q6H PRN ORAL For Anxiety 03/06/19 22:45 03/13/19 22:44 03/08/19 18:16 Magnesium Hydroxide (Mom) 30 ml DAILYPRN PRN ORAL Constipation 03/05/19 22:30 04/04/19 22:29 Olanzapine (ZyPREXA) 5 mg TID ORAL 03/09/19 09:00 04/08/19 08:59 03/09/19 09:12 Pantoprazole (Protonix) 40 mg DAILY@0630 ORAL 03/06/19 06:30 04/05/19 06:29 03/10/19 05:36 Last 24 Hour Vital Signs Date Time Temp Pulse Resp B/P (MAP) Pulse Ox O2 Delivery O2 Flow Rate FiO2 03/10/19 08:00 98.1 90 18 124/67 (86) 93 03/10/19 04:10 98.4 95 20 118/68 (85) 93 03/10/19 00:00 97.3 99 20 126/67 (86) 91 03/09/19 21:13 Room Air 03/09/19 20:07 97.9 86 20 133/75 (94) 98 03/09/19 16:00 98.0 83 18 130/81 (97) 95 03/09/19 12:00 97.7 81 18 124/69 (87) 94 03/09/19 09:00 Room Air 03/09/19 08:00 97.7 79 18 125/70 (88) 92 03/09/19 04:00 97.2 85 20 126/70 (88) 96 03/09/19 00:00 97.5 80 20 148/84 (105) 96 03/08/19 20:16 Room Air 03/08/19 20:00 97.7 88 20 145/83 (103) 96 03/08/19 16:00 97.7 90 18 130/72 (91) 96 03/08/19 12:00 97.7 92 18 125/68 (87) 95 Intake and Output 03/09/19 03/10/19 19:00 07:00 Intake Total 500 ml Balance 500 ml Other 500 ml # Voids 2 Labs Test 03/10/19 06:15 White Blood Count 13.6 K/UL (4.8-10.8) Red Blood Count 5.25 M/UL (4.20-5.40) Hemoglobin 15.5 G/DL (12.0-16.0) Hematocrit 47.2 % (37.0-47.0) Mean Corpuscular Volume 90 FL (80-99) Mean Corpuscular Hemoglobin 29.6 PG (27.0-31.0) Mean Corpuscular Hemoglobin Concent 32.9 G/DL (32.0-36.0) Red Cell Distribution Width 12.2 % (11.6-14.8) Platelet Count 175 K/UL (150-450) Mean Platelet Volume 7.7 FL (6.5-10.1) Neutrophils (%) (Auto) % (45.0-75.0) Lymphocytes (%) (Auto) % (20.0-45.0) Monocytes (%) (Auto) % (1.0-10.0) Eosinophils (%) (Auto) % (0.0-3.0) Basophils (%) (Auto) % (0.0-2.0) Differential Total Cells Counted 100 Neutrophils % (Manual) 78 % (45-75) Lymphocytes % (Manual) 8 % (20-45) Monocytes % (Manual) 5 % (1-10) Eosinophils % (Manual) 1 % (0-3) Basophils % (Manual) 0 % (0-2) Band Neutrophils 8 % (0-8) Platelet Estimate Adequate Platelet Morphology Normal Red Blood Cell Morphology Normal Height (Feet): 5 Height (Inches): 8.00 Weight (Pounds): 147 Objective Vitals: reviewed General Appearance: NAD HEENT: normocephalic, atraumatic Neck: non-tender, normal alignment Breast: left breast with 1-2 cm mass, mobile, difficult to access borders Respiratory/Chest: normal breath sounds b/l Cardiovascular/Chest: normal peripheral pulses, normal rate Abdomen: normal bowel sounds, soft, nontender Extremities: normal range of motion Josué Viera MD Mar 10, 2019 09:07
[2019-03-10] MEDS ORDERED: Enoxaparin 40mg Inj SUBQ SCH (09:15)
[2019-03-10] MEDS: LORazepam 1mg tab ORAL PRN (09:19)
--- NOTE | 2019-03-10 09:53 | NUR ---
NURSE NOTES: Patient accompanied by techs for CT chest.
[2019-03-10 12:00] VITALS: BP 121/62
--- NOTE | 2019-03-10 13:58 | NUR ---
CASE MANAGEMENT: INITIAL REVIEW 84 YO F BIBA FROM [facility] CC: GEN WEAKNESS PMHx: COPD. HTN. GERD. SI:FTT. DEHYDRATION. T 97.9 HR 87 RR 18 B/P 109/55 SATS 99% ON RA BUN 30 GLU 118 BNP 214 IS: CXR Impression: Left lateral basilar atelectasis. PATIENT ADMITTED TO MED/SURG 03/05/2019 @ 1852 DCP: PATIENT TO BE DISCHARGED TO HOME ONCE MEDICALLY CLEARED. PLAN OF CARE: EXCISIONAL BIOPSY LEFT BREAST MASS
--- NOTE | 2019-03-10 15:30 | Diagnostic Imaging Report ---
Clinical Indication: Chest pain, left breast mass Technique: IV administration nonionic contrast. Spiral acquisition obtained through the chest. Multiplanar reconstructions generated. Total dose length product 1031 mGycm. CTDIvol(s) 21 mGy. Dose reduction achieved using automated exposure control Comparison: none Findings: There is imaging examination due to motion artifact. Irregular opacities in the bilateral lung apices likely represent areas of scarring. Other ill-defined areas of opacity are seen in the posterior right lower lobe and in the right infrahilar region. A more discrete irregular 13 mm lobulated/spiculated lesion is seen in the posterior aspect of the left upper lobe. There is a small subpleural nodule just peripheral to this.. Small cystic spaces are present bilaterally. There is dependent atelectasis of the inferior lower lobes bilaterally. No definite nodules are demonstrated. No effusions. No congestion. There is a sliding-type hiatal hernia. There is wall thickening of the distal esophagus. The heart size is normal. There is a small amount of pericardial fluid anteriorly. There are prominent but not frankly enlarged mediastinal lymph nodes. There is a large mass in the lower pole of the left thyroid lobe. This measures 4 x 2.9 x 6.7 cm. This contains some calcifications. It is heterogeneous. There is a mass in the posteromedial left breast. This measures 2 cm long axis dimension and demonstrates slightly lobulated slightly spiculated borders. There is left axillary adenopathy, with a node measuring 3.2 x 1.6 cm. No right axillary lymphadenopathy. Bones demonstrate a vertebral plana type burst/compression fracture of the L1 vertebral body. This demonstrates approximately 6 mm of posterior retropulsion and approximately 70% height loss anteriorly. The included upper abdominal anatomy demonstrates pancreatic atrophy and calcification. The gallbladder demonstrates a 6 mm focal soft tissue attenuation abnormality at the fundus. Unusually prominent vessels without discrete mass are seen within segment 2 of the liver. Impression: 2 cm left breast mass, concerning for neoplasm particularly given. Stated clinical findings Left axillary adenopathy is likely metastatic Left upper lobe parenchymal opacity. This could represent an area of scarring, primary neoplasm, or metastatic neoplasm. Other parenchymal opacities in the right lower lobe, appearance most suggestive of acute inflammatory or postinflammatory process, but underlying mass lesions are not excludable. 4 x 2.9 x 6.7 cm left lower pole thyroid mass. Consider further evaluation with ultrasound Slight axial hiatal hernia. Wall thickening of the distal esophagus may reflect esophagitis L1 vertebral body vertebra plana type burst/compression fracture with posterior retropulsion. Acuity indeterminate although suspect not acute. Consider MRI for better characterization if this is clinically relevant 6 mm area of focal soft tissue attenuation wall thickening at the gallbladder fundus. This may represent a wall adherent calculus versus a small polyp The CT scanner at [facility] is accredited by the [employer] and the scans are performed using protocols designed to limit radiation exposure to as low as reasonably achievable to attain images of sufficient resolution adequate for diagnostic evaluation.
[2019-03-10 16:00] VITALS: BP 124/70
--- NOTE | 2019-03-10 19:37 | NUR ---
HAND-OFF: Report given to Nisha RN.
--- NOTE | 2019-03-10 19:51 | NUR ---
NURSE NOTES: RECEIVED PT FROM LAZARO MOLINA. PT IS ASLEEP, ON NASAL CANULA 2L, NO ACUTE DISTRESS NOTED. VSS. IV ON RIGHT HAND 22G IS INTACT AND PATENT. BED IS LOCKED AND LOW, BED ALARMS ACTIVE, SIDE RAILS UP X2 AND CALL LIGHT IS WITHIN REACH.
[2019-03-10 20:00] VITALS: BP 109/62
[2019-03-11] VITALS: BP 103/59
--- NOTE | 2019-03-11 03:45 | Progress Note ---
DATE: 03/10/2019 SUBJECTIVE: The patient is uncooperative and is having episodes of agitation, uncooperative with the care, disoriented, and is unable to participate in the evaluation. Less agitated. MENTAL STATUS EXAMINATION: The patient is alert, poor memory, is unable to be engaged during the evaluation. Mood is anxious. Affect is flat. Thought process, disorganized. Thought content, no suicidal or homicidal ideation. Cognition is impaired. Insight and judgment is impaired. ASSESSMENT: 1. Dementia with behavior disturbance. 2. Acute encephalopathy. PLAN: 1. We will continue the current psychotropic medications. 2. Provide the patient with reality orientation and supportive therapy. Owen Higgins M.D. DR: KURT JOB#: [id number] CC:
[2019-03-11 04:00] VITALS: BP 119/72
--- NOTE | 2019-03-11 04:00 | NUR ---
NURSE NOTES: PATIENT HAD A CHANGE IN CONDITION. DESATURATED AT 78%. RAPID RESPONSE INITIATED. CALLED AND LEFT MESSAGE WITH PRIMARY DR. HERNANDEZ. PT WAS TRANSFERRED TO [address] [place] [address]. REPORT GIVEN TO LAZARO OLIVEIRA. BELONGING LIST WAS REVIEWED AND SIGNED.
--- NOTE | 2019-03-11 04:30 | NUR ---
NURSE NOTES: received a transferred patient from after Rapid respond,patient became ST and desaturated,received bedside report from Nisha,RN.Patient tolerated N/C well with 2L/min,no s/s of pain,no respiratory distress noted,site monitor applied,BS active in all quadrants,pt on bilateral wrist soft restrains on safety issue d/t removing devices,IV asymptomatic,intact on R hand 22G,bed secured in a low safety position,call light within a reach,will continue to monitor,pt' placed on a room close to the station,belongings list signed.
--- NOTE | 2019-03-11 04:39 | Diagnostic Imaging Report ---
Indication: Shortness of breath Technique: One view of the chest Comparison: 03/05/2019 Findings: And development of infiltrate at the right lung base. There is some atelectasis at the left lung base which appears increased from the prior study. The upper lungs are clear. The pleural spaces are grossly clear. Impression: New right basilar infiltrate, since prior study 03/05/2019 Increasing left basilar atelectasis and possibly associated consolidation This agrees with the preliminary interpretation provided overnight by [facility].
[2019-03-11] MEDS ORDERED: LORazepam 1mg tab ORAL PRN (04:45)
[2019-03-11] MEDS ORDERED: Milk of Magnesia 30ml Ud ORAL PRN (05:00)
[2019-03-11 05:53] LABS: HEMATOCRIT 45.9 % (37.0-47.0); HEMOGLOBIN 15.2 G/DL (12.0-16.0); MEAN CORPUSCULAR VOLUME 90 FL (80-99); PLATELET COUNT 166 K/UL (150-450); RED BLOOD COUNT 5.11 M/UL (4.20-5.40); RED CELL DISTRIBUTION WIDTH 12.4 % (11.6-14.8); WHITE BLOOD COUNT 13.1 K/UL (4.8-10.8)
[2019-03-11 06:00] LABS: ANION GAP 13 mmol/L (5-15); BLOOD UREA NITROGEN 54 mg/dL (7-18); CALCIUM 9.8 MG/DL (8.5-10.1); CARBON DIOXIDE 24 MMOL/L (21-32); CHLORIDE 106 MMOL/L (98-107); SODIUM 143 MMOL/L (136-145)
[2019-03-11] MEDS ORDERED: Piperacillin/Tazobactam 3.375 GM in NS 110 ML IVPB SCH (06:15)
--- NOTE | 2019-03-11 06:50 | NUR ---
NEUROLOGY TECHNICIAN Note: NEUROLOGY TECHNICIAN was called at 3:45 by charge nurse LAZARO Ayala, and notified MD Winters. Pt transferred to [facility] at 4:30. See NEUROLOGY TECHNICIAN documentation form for full report.
--- NOTE | 2019-03-11 07:10 | NUR ---
NURSE NOTES: Received pt from LAZARO Bucio. Patient is lethargic/drowsy. Responds to pain stimuli. MAYONNAISE MIXER this morning at 4am. Breathing is labored but even. Bronchi heard bilateral breath sounds. Patient is on a non-rebreather 10L, Spo2 100%. SR on pathology collector in 70's. Afebrile. RH 22G running 1/2NS@100ml/hr. Patient is incontinent, purwick in place. Bed locked, alarmed and in lowest position. Will continue plan of care.
--- NOTE | 2019-03-11 07:20 | NUR ---
HAND-OFF: Report given to LAZARO Benz.Patient stable,sleeping,IV fluid running.
[2019-03-11 08:00] VITALS: BP 125/102
--- NOTE | 2019-03-11 08:00 | NUR ---
NURSE NOTES: Reminded Dr. Higgins to e-sign restraints.
[2019-03-11] MEDS: Albuterol/Ipratropium 3ml neb HHN SCH ×5 (08:20→23:34)
--- NOTE | 2019-03-11 08:30 | NUR ---
NURSE NOTES: Attempted to feed breakfast for patient, she spat out her food and refused to take another bite. Patient still drowsy. Dr. Larry notified. ST quintana ordered.
--- NOTE | 2019-03-11 08:54 | NUR ---
RADIOLOGY DEPT., CHEST X-RAY PERFORMED POST RAPID RESPONSE CALL BY TECH:YOUSUF
[2019-03-11] MEDS ORDERED: Enoxaparin 40mg Inj SUBQ SCH (09:00)
[2019-03-11 09:08] LABS: ANION GAP 9 mmol/L (5-15); BLOOD UREA NITROGEN 55 mg/dL (7-18); CALCIUM 9.9 MG/DL (8.5-10.1); CARBON DIOXIDE 27 MMOL/L (21-32); CHLORIDE 107 MMOL/L (98-107); POTASSIUM 4.2 MMOL/L (3.5-5.1); SODIUM 143 MMOL/L (136-145)
[2019-03-11 09:19] LABS: ALANINE AMINOTRANSFERASE 15 U/L (12-78); ALBUMIN 3.3 G/DL (3.4-5.0); ALBUMIN/GLOBULIN RATIO 0.6 (1.0-2.7); ALKALINE PHOSPHATASE 67 U/L (46-116); ASPARTATE AMINO TRANSFERASE 20 U/L (15-37); BILIRUBIN,TOTAL 0.8 MG/DL (0.2-1.0)
[2019-03-11] MEDS: Piperacillin/Tazobactam 3.375 GM in NS 110 ML IVPB SCH ×2 (09:33→17:16)
[2019-03-11] MEDS: Enoxaparin Sodium 300mg/3ml vial SUBQ SCH (09:34)
--- NOTE | 2019-03-11 11:43 | NUR ---
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 CURRENT DIET: MARIA L ms ground PO DIET RECOMMENDATIONS: LIBERALIZED REGULAR DIET (texture per TRAWL NET MAKER) + Ensure TID ENTERAL NUTRITION RECOMMENDATIONS: Glucerna 1.2 @ 60ml/hr x 24 hrs to provide 1440ml, 1728kcal, 86g prot, 1159ml free water * If TF part of POC and indicated, obtain GI access. * Rec carb controlled TF formula of Glucerna 1.2 for mildly elev FBGs (136 148) * Initiate Glucerna 1.2 @ 20ml/hr x 6 hrs * Advance TF 10ml q 4-6 hrs as tolerated to goal rate. * TF @ goal will provide 100% est kcal/prot needs ADDITIONAL RECOMMENDATIONS: 1) Per SNF-> HT: 5'8" WT: 143# 2) Rec to recalibrate bedscale wt -> bedscale wt on 03/1148=870wkp vs EMR wt 147lbs 3) F/up w/ TRAWL NET MAKER eval 4) Monitor PO intake closely : pt admitted w/ FTT, cont w/ poor PO -> consider nonoral feedings 5) A1C for eval of glycemic control: mildly elev FBGs (136 148)
[2019-03-11 12:00] VITALS: BP 120/58
--- NOTE | 2019-03-11 12:46 | NUR ---
FLOUR MIXERSPEECH AND LANGUAGE TUTOR SI: RESP FAILURE, FAILURE TO THRIVE T. 97.0 HR 79 RR 18 B/P 125/72 NRM O2 SAT @ 94% PH 7.39 PCO2 36.1 PO2 65.6 HCO3 21.5 O2 SAT 92.6 WBC 13.1 BUN 55 CR 2.0 BNP 531 CXR= RIGHT BASILAR INFILTRATES IS: ZOSYN IV IVF NS @ 100ML/HR LOVENOX SUBC ALB HHN STEP DOWN STATUS
--- NOTE | 2019-03-11 14:17 | Hematology/Onc Progress Note ---
Assessment/Plan Assessment/Plan Assessment and Recs; # Left breast mass with soft borders on exam, requires conservator for bx --> ct chest 2 cm left breast mass, concerning for neoplasm particularly given. Stated clinical findings Left axillary adenopathy is likely metastatic --> reviewed clinical exam, still needs to have a mammo done --> excisional biopsy v us guided biopsy (meed consent) --> seen by surg, needs consent, have called them and jose RN # Failure to thrive (FTT) - decreased bmi and low protein --> have ordered for cea level --> will obtain q3 day caloric counts --> may consider mirtazapine as appetite stimulant --> GI consult on a prn basis, as needed for endosc # Leukocytosis, mild --> 13-->13 --> r/o infection, abx as needed Zosyn # Dehydration --> ivf have been given --> bmp ordered # Confusion --> potentially dementia related --> psych eval prn --> has conservator # Dvt ppx lovenox sq The timing of this note does not necessarily reflect the time of the patient was seen. Greatly appreciate consultation. Subjective Constitutional: Denies: no symptoms, chills, fever, malaise, weakness, other HEENT: Denies: no symptoms, eye pain, blurred vision, tearing, double vision, ear pain, ear discharge, nose pain, nose congestion, throat pain, throat swelling, mouth pain, mouth swelling, other Cardiovascular: Denies: no symptoms, chest pain, edema, irregular heart rate, lightheadedness, palpitations, syncope, other Respiratory: Denies: no symptoms, cough, shortness of breath, SOB with excertion, SOB at rest, sputum, wheezing, other Gastrointestinal/Abdominal: Denies: no symptoms, abdomen distended, abdominal pain, black stools, tarry stools, blood in stool, constipated, diarrhea, difficulty swallowing, nausea, poor appetite, poor fluid intake, rectal bleeding , vomiting, other Genitourinary: Denies: no symptoms, burning, discharge, frequency, flank pain, hematuria, incontinence, pain, urgency, other Endocrine: Denies: no symptoms, excessive sweating, flushing, intolerance to cold, intolerance to heat, increased hunger, increased thirst, increased urine, unexplained weight gain, unexplained weight loss, other Allergies: Coded Allergies: No Known Allergies (Unverified , 03/05/19) Subjective 10.13: remains altered, seen by [facility], potential dc once improves ams 03/10: Jose rn, consent for scan was signed 03/11: requiring restartings, imaging reviewed from last night Objective Objective Current Medications Medications (Trade) Dose Ordered Sig/León Route PRN Reason Start Time Stop Time Status Last Admin Dose Admin Acetaminophen (Tylenol) 650 mg Q4H PRN ORAL Mild Pain/Temp > 100.5 03/11/19 05:00 04/04/19 04:59 Albuterol/ Ipratropium (Albuterol/ Ipratropium) 3 ml Q4HRT HHN 03/11/19 07:00 03/16/19 06:59 03/11/19 10:50 Enoxaparin Sodium (Lovenox) 70 mg Q24H SUBQ 03/11/19 10:00 04/10/19 09:59 03/11/19 09:34 Lorazepam (Ativan) 2 mg Q6H PRN ORAL For Anxiety 03/11/19 04:45 03/13/19 22:44 Magnesium Hydroxide (Mom) 30 ml DAILYPRN PRN ORAL Constipation 03/11/19 05:00 04/04/19 04:59 Olanzapine (ZyPREXA) 5 mg TID ORAL 03/11/19 09:00 04/08/19 08:59 Pantoprazole (Protonix) 40 mg DAILY@0630 ORAL 03/11/19 06:30 04/05/19 06:29 03/11/19 06:52 Piperacillin Sod/ Tazobactam Sod 3.375 gm/Sodium Chloride 110 ml @ 27.5 mls/hr Q8H IVPB 03/11/19 09:00 03/18/19 08:59 03/11/19 09:33 Sodium Chloride 1,000 ml @ 100 mls/hr Q10H IV 03/11/19 06:15 04/10/19 06:14 03/11/19 06:49 Last 24 Hour Vital Signs Date Time Temp Pulse Resp B/P (MAP) Pulse Ox O2 Delivery O2 Flow Rate FiO2 03/11/19 13:06 104 03/11/19 12:00 97.3 103 18 120/58 (78) 95 03/11/19 10:50 77 18 97 Non-Rebreather 10.0 100 68 18 95 03/11/19 09:00 Room Air 03/11/19 08:00 78 03/11/19 08:00 97.0 79 18 125/102 (110) 83 03/11/19 07:59 64 16 100 Non-Rebreather 10.0 100 03/11/19 07:59 70 16 100 Non-Rebreather 10.0 100 64 16 100 03/11/19 04:00 97.9 99 18 119/72 (88) 83 03/11/19 00:00 97.6 59 18 103/59 (74) 94 03/10/19 21:00 Room Air 03/10/19 20:00 98.4 102 20 109/62 (78) 97 03/10/19 16:00 98.1 79 19 124/70 (88) 96 03/10/19 12:00 97.9 89 18 121/62 (81) 94 03/10/19 09:00 Room Air 03/10/19 08:00 98.1 90 18 124/67 (86) 93 03/10/19 04:10 98.4 95 20 118/68 (85) 93 03/10/19 00:00 97.3 99 20 126/67 (86) 91 03/09/19 21:13 Room Air 03/09/19 20:07 97.9 86 20 133/75 (94) 98 03/09/19 16:00 98.0 83 18 130/81 (97) 95 Intake and Output 03/10/19 03/11/19 19:00 07:00 Intake Total 80 ml Balance 80 ml Intake Oral 80 ml # Voids 4 Labs Test 03/10/19 06:15 03/11/19 03:44 03/11/19 04:00 03/11/19 05:00 White Blood Count 13.6 K/UL (4.8-10.8) 13.1 K/UL (4.8-10.8) Red Blood Count 5.25 M/UL (4.20-5.40) 5.11 M/UL (4.20-5.40) Hemoglobin 15.5 G/DL (12.0-16.0) 15.2 G/DL (12.0-16.0) Hematocrit 47.2 % (37.0-47.0) 45.9 % (37.0-47.0) Mean Corpuscular Volume 90 FL (80-99) 90 FL (80-99) Mean Corpuscular Hemoglobin 29.6 PG (27.0-31.0) 29.8 PG (27.0-31.0) Mean Corpuscular Hemoglobin Concent 32.9 G/DL (32.0-36.0) 33.2 G/DL (32.0-36.0) Red Cell Distribution Width 12.2 % (11.6-14.8) 12.4 % (11.6-14.8) Platelet Count 175 K/UL (150-450) 166 K/UL (150-450) Mean Platelet Volume 7.7 FL (6.5-10.1) 7.4 FL (6.5-10.1) Neutrophils (%) (Auto) % (45.0-75.0) % (45.0-75.0) Lymphocytes (%) (Auto) % (20.0-45.0) % (20.0-45.0) Monocytes (%) (Auto) % (1.0-10.0) % (1.0-10.0) Eosinophils (%) (Auto) % (0.0-3.0) % (0.0-3.0) Basophils (%) (Auto) % (0.0-2.0) % (0.0-2.0) Differential Total Cells Counted 100 100 Neutrophils % (Manual) 78 % (45-75) 88 % (45-75) Lymphocytes % (Manual) 8 % (20-45) 6 % (20-45) Monocytes % (Manual) 5 % (1-10) 4 % (1-10) Eosinophils % (Manual) 1 % (0-3) 0 % (0-3) Basophils % (Manual) 0 % (0-2) 0 % (0-2) Band Neutrophils 8 % (0-8) 2 % (0-8) Platelet Estimate Adequate Adequate Platelet Morphology Normal Normal Red Blood Cell Morphology Normal Normal Arterial Blood pH 7.392 (7.350-7.450) Arterial Blood Partial Pressure CO2 36.1 mmHg (35.0-45.0) Arterial Blood Partial Pressure O2 65.6 mmHg (75.0-100.0) Arterial Blood HCO3 21.5 mmol/L (22.0-26.0) Arterial Blood Oxygen Saturation 92.6 % (95-100) Arterial Blood Base Excess -2.8 (-2-2) Dagoberto Test Sodium Level 143 MMOL/L (136-145) Potassium Level 4.0 MMOL/L (3.5-5.1) Chloride Level 106 MMOL/L (98-107) Carbon Dioxide Level 24 MMOL/L (21-32) Anion Gap 13 mmol/L (5-15) Blood Urea Nitrogen 54 mg/dL (7-18) Creatinine 2.0 MG/DL (0.55-1.30) Estimat Glomerular Filtration Rate mL/min (>60) Glucose Level 148 MG/DL (74-106) Calcium Level 9.8 MG/DL (8.5-10.1) Test 03/11/19 08:15 D-Dimer 2.05 mg/L FEU (0.00-0.49) Sodium Level 143 MMOL/L (136-145) Potassium Level 4.2 MMOL/L (3.5-5.1) Chloride Level 107 MMOL/L (98-107) Carbon Dioxide Level 27 MMOL/L (21-32) Anion Gap 9 mmol/L (5-15) Blood Urea Nitrogen 55 mg/dL (7-18) Creatinine 2.0 MG/DL (0.55-1.30) Estimat Glomerular Filtration Rate mL/min (>60) Glucose Level 136 MG/DL (74-106) Calcium Level 9.9 MG/DL (8.5-10.1) Total Bilirubin 0.8 MG/DL (0.2-1.0) Aspartate Amino Transf (AST/SGOT) 20 U/L (15-37) Alanine Aminotransferase (ALT/SGPT) 15 U/L (12-78) Alkaline Phosphatase 67 U/L (46-116) Pro-B-Type Natriuretic Peptide 531 pg/mL (0-125) Total Protein 8.4 G/DL (6.4-8.2) Albumin 3.3 G/DL (3.4-5.0) Globulin 5.1 g/dL Albumin/Globulin Ratio 0.6 (1.0-2.7) Height (Feet): 5 Height (Inches): 8.00 Weight (Pounds): 147 Objective Vitals: reviewed General Appearance: NAD HEENT: normocephalic, atraumatic Neck: non-tender, normal alignment Breast: left breast with 1-2 cm mass, mobile, difficult to access borders Respiratory/Chest: normal breath sounds b/l Cardiovascular/Chest: normal peripheral pulses, normal rate Abdomen: normal bowel sounds, soft, nontender Extremities: normal range of motion Josué Viera MD Mar 11, 2019 14:17
--- NOTE | 2019-03-11 15:24 | NUR ---
NURSE NOTES: Notified Dr. Higgins patient is unable to take zyprexa PO. Received orders for Haldol IM PRN q6hrs for agitation and D/C ativan PO.
[2019-03-11] MEDS ORDERED: Haloperidol 5mg/ml Inj IM PRN (15:30)
--- NOTE | 2019-03-11 15:38 | NUR ---
NURSE NOTES: ST eval not to be done until tomorrow. RN bedside swallow eval done. Patient is too drowsy and lethargic to eat. Will notify PMD.
[2019-03-11 16:00] VITALS: BP 120/59
--- NOTE | 2019-03-11 19:20 | NUR ---
NURSE NOTES: pt report received from giuliano Chirinos RN [facility]. pt remains stable. pt alert and oriented times 1. pt is on a clinical research monitor showing NSR, no distress noted. ptis on 10Lnon rebreather, satting at 99% no distress noted. pt bed rails up times 3, call light within reach, bed is low, locked, armed,. will continue plan of care.
--- NOTE | 2019-03-11 19:31 | NUR ---
HAND-OFF: Report given to Pastor Holley RN.
[2019-03-11 20:00] VITALS: BP 103/56
--- NOTE | 2019-03-11 22:35 | NUR ---
NURSE NOTES: L forearm 18G started, no abnormalities noted to site.
[2019-03-12] VITALS: BP 108/61
[2019-03-12] MEDS: Piperacillin/Tazobactam 3.375 GM in NS 110 ML IVPB SCH ×3 (00:19→18:00)
--- NOTE | 2019-03-12 00:45 | Progress Note ---
DATE: 03/11/2019 SUBJECTIVE: The patient is in [facility] now. He was started on Ativan by another physician which will be discontinued today as the patient was sedated. The patient still has episodes of agitation, currently on olanzapine. The patient is having episodes of agitation. MENTAL STATUS EXAMINATION: The patient is having waxing and waning consciousness. Mood is anxious. Affect is flat. Thought process, there is a paucity of thought content. Thought content, no suicidal or homicidal ideation. Cognition is impaired. Insight and judgment non-existent. ASSESSMENT: Acute encephalopathy. PLAN: 1. Discontinue Ativan p.o. 2. We will continue the Zyprexa however the patient is spitting out the Zyprexa. 3. Start the patient on Haldol IM p.r.n. 4. Discussed the case with Owen Higgins M.D. DR: Colt JOB#: [id number] CC:
[2019-03-12] MEDS: Albuterol/Ipratropium 3ml neb HHN SCH ×6 (03:56→23:20)
[2019-03-12 04:00] VITALS: BP 110/56
[2019-03-12 04:55] LABS: BASOPHILS % (AUTO) 0.4 % (0.0-2.0); EOSINOPHILS % (AUTO) 0.7 % (0.0-3.0); HEMATOCRIT 39.1 % (37.0-47.0); HEMOGLOBIN 12.9 G/DL (12.0-16.0); LYMPHOCYTES % (AUTO) 10.3 % (20.0-45.0); MEAN CORPUSCULAR VOLUME 91 FL (80-99); MONOCYTES % (AUTO) 9.3 % (1.0-10.0); NEUTROPHILS % (AUTO) 79.3 % (45.0-75.0); PLATELET COUNT 145 K/UL (150-450); RED BLOOD COUNT 4.32 M/UL (4.20-5.40); RED CELL DISTRIBUTION WIDTH 12.3 % (11.6-14.8); WHITE BLOOD COUNT 9.2 K/UL (4.8-10.8)
--- NOTE | 2019-03-12 07:24 | NUR ---
HAND-OFF: Report given to Fl;brinda RN [facility]. Pt remains stable.
--- NOTE | 2019-03-12 07:25 | NUR ---
NURSE NOTES: Received bedside report from Pastor Hernandez RN. Pt. in bed, awake, confused. Currently receiving breathing tx. from RT. No sign of distress. On non-rebreathing mask with 10LPM. No grimacing noted. IV at left FA #18g. and right wrist #22g. in placed patent/intact infusing 1/2 NS at 100cc/hr. Bilateral soft hand restrains in placed due to pt. cont. to pulling out IV line and breathing mask. Constant re-direct pt. Bed in low position, locked. Call light within reach. Will cont. to monitor.
[2019-03-12 08:00] VITALS: BP 120/83
--- NOTE | 2019-03-12 09:59 | Hematology/Onc Progress Note ---
Assessment/Plan Assessment/Plan Assessment and Recs; # Left breast mass with soft borders on exam, requires conservator for bx --> ct chest 2 cm left breast mass, concerning for neoplasm particularly given. Stated clinical findings Left axillary adenopathy is likely metastatic --> reviewed clinical exam, still needs to have a mammo done --> excisional biopsy v us guided biopsy (meed consent) --> seen by surg, needs consent, have called them and jose RN # Thrombocytopenia new onset --> obtain plt count, trend as needed, hep and hiv, us abd prn --> plt 175-->145k --> abx reviewed # Failure to thrive (FTT) - decreased bmi and low protein --> have ordered for cea level --> will obtain q3 day caloric counts --> may consider mirtazapine as appetite stimulant --> GI consult on a prn basis, as needed for endosc # Leukocytosis, mild --> 13-->13 --> r/o infection, abx as needed Zosyn # Dehydration --> ivf have been given --> bmp ordered # Confusion --> potentially dementia related --> psych eval prn --> has conservator # Dvt ppx lovenox sq The timing of this note does not necessarily reflect the time of the patient was seen. Greatly appreciate consultation. Subjective Constitutional: Denies: no symptoms, chills, fever, malaise, weakness, other HEENT: Denies: no symptoms, eye pain, blurred vision, tearing, double vision, ear pain, ear discharge, nose pain, nose congestion, throat pain, throat swelling, mouth pain, mouth swelling, other Respiratory: Denies: no symptoms, cough, shortness of breath, SOB with excertion, SOB at rest, sputum, wheezing, other Gastrointestinal/Abdominal: Denies: no symptoms, abdomen distended, abdominal pain, black stools, tarry stools, blood in stool, constipated, diarrhea, difficulty swallowing, nausea, poor appetite, poor fluid intake, rectal bleeding , vomiting, other Genitourinary: Denies: no symptoms, burning, discharge, frequency, flank pain, hematuria, incontinence, pain, urgency, other Neurologic/Psychiatric: Denies: no symptoms, anxiety, depressed, emotional problems, headache, numbness, paresthesia, pre-existing deficit, seizure, tingling, tremors, weakness, other Allergies: Coded Allergies: No Known Allergies (Unverified , 03/05/19) Subjective 10.13: remains altered, [facility], potential dc once improves ams 03/10: Jose rn, consent for scan was signed 03/11: requiring restartings, imaging reviewed from last night 03/12: no bleeding or chills noted, no major changes Objective Objective Current Medications Medications (Trade) Dose Ordered Sig/León Route PRN Reason Start Time Stop Time Status Last Admin Dose Admin Acetaminophen (Tylenol) 650 mg Q4H PRN ORAL Mild Pain/Temp > 100.5 03/11/19 05:00 04/04/19 04:59 Albuterol/ Ipratropium (Albuterol/ Ipratropium) 3 ml Q4HRT HHN 03/11/19 07:00 03/16/19 06:59 03/12/19 07:09 Enoxaparin Sodium (Lovenox) 70 mg Q24H SUBQ 03/11/19 10:00 04/10/19 09:59 03/11/19 09:34 Haloperidol Lactate (Haldol) 5 mg Q6H PRN IM Agitation 03/11/19 15:30 04/10/19 15:29 Magnesium Hydroxide (Mom) 30 ml DAILYPRN PRN ORAL Constipation 03/11/19 05:00 04/04/19 04:59 Olanzapine (ZyPREXA) 5 mg TID ORAL 03/11/19 09:00 04/08/19 08:59 03/12/19 09:20 Pantoprazole (Protonix) 40 mg DAILY@0630 ORAL 03/11/19 06:30 04/05/19 06:29 03/12/19 05:53 Piperacillin Sod/ Tazobactam Sod 3.375 gm/Sodium Chloride 110 ml @ 27.5 mls/hr Q8H IVPB 03/11/19 09:00 03/18/19 08:59 03/12/19 09:20 Sodium Chloride 1,000 ml @ 100 mls/hr Q10H IV 03/11/19 06:15 04/10/19 06:14 03/12/19 01:57 Last 24 Hour Vital Signs Date Time Temp Pulse Resp B/P (MAP) Pulse Ox O2 Delivery O2 Flow Rate FiO2 03/12/19 08:00 98.0 88 18 120/83 (95) 92 03/12/19 07:19 83 20 100 Non-Rebreather 15.0 100 84 20 100 03/12/19 04:00 97.2 72 20 110/56 (74) 95 03/12/19 04:00 82 03/12/19 03:56 81 18 99 Non-Rebreather 10.0 100 79 18 96 03/12/19 00:00 98.0 82 16 108/61 (77) 97 03/12/19 00:00 76 03/11/19 23:34 78 18 100 Non-Rebreather 10.0 100 75 18 100 03/11/19 21:00 Room Air 03/11/19 20:00 97.0 81 16 103/56 (72) 98 03/11/19 20:00 87 03/11/19 19:43 88 20 100 Non-Rebreather 15.0 100 87 20 99 03/11/19 19:43 87 20 99 Non-Rebreather 15.0 100 03/11/19 16:00 97.0 83 25 120/59 (79) 99 03/11/19 16:00 110 03/11/19 15:25 84 20 98 Non-Rebreather 10.0 100 82 20 96 03/11/19 13:06 104 03/11/19 12:00 97.3 103 18 120/58 (78) 95 03/11/19 10:50 77 18 97 Non-Rebreather 10.0 100 68 18 95 03/11/19 09:00 Room Air 03/11/19 08:00 78 03/11/19 08:00 97.0 79 18 125/102 (110) 83 03/11/19 07:59 64 16 100 Non-Rebreather 10.0 100 03/11/19 07:59 70 16 100 Non-Rebreather 10.0 100 64 16 100 03/11/19 04:00 97.9 99 18 119/72 (88) 83 03/11/19 00:00 97.6 59 18 103/59 (74) 94 03/10/19 21:00 Room Air 03/10/19 20:00 98.4 102 20 109/62 (78) 97 03/10/19 16:00 98.1 79 19 124/70 (88) 96 03/10/19 12:00 97.9 89 18 121/62 (81) 94 Intake and Output 03/11/19 03/12/19 18:59 06:59 Intake Total 1110.0 ml 1310.0 ml Output Total 50 ml 250 ml Balance 1060.0 ml 1060.0 ml IV Total 1110.0 ml 1310.0 ml Output Urine Total 50 ml 250 ml Labs Test 03/10/19 06:15 03/11/19 03:44 03/11/19 04:00 03/11/19 05:00 White Blood Count 13.6 K/UL (4.8-10.8) 13.1 K/UL (4.8-10.8) Red Blood Count 5.25 M/UL (4.20-5.40) 5.11 M/UL (4.20-5.40) Hemoglobin 15.5 G/DL (12.0-16.0) 15.2 G/DL (12.0-16.0) Hematocrit 47.2 % (37.0-47.0) 45.9 % (37.0-47.0) Mean Corpuscular Volume 90 FL (80-99) 90 FL (80-99) Mean Corpuscular Hemoglobin 29.6 PG (27.0-31.0) 29.8 PG (27.0-31.0) Mean Corpuscular Hemoglobin Concent 32.9 G/DL (32.0-36.0) 33.2 G/DL (32.0-36.0) Red Cell Distribution Width 12.2 % (11.6-14.8) 12.4 % (11.6-14.8) Platelet Count 175 K/UL (150-450) 166 K/UL (150-450) Mean Platelet Volume 7.7 FL (6.5-10.1) 7.4 FL (6.5-10.1) Neutrophils (%) (Auto) % (45.0-75.0) % (45.0-75.0) Lymphocytes (%) (Auto) % (20.0-45.0) % (20.0-45.0) Monocytes (%) (Auto) % (1.0-10.0) % (1.0-10.0) Eosinophils (%) (Auto) % (0.0-3.0) % (0.0-3.0) Basophils (%) (Auto) % (0.0-2.0) % (0.0-2.0) Differential Total Cells Counted 100 100 Neutrophils % (Manual) 78 % (45-75) 88 % (45-75) Lymphocytes % (Manual) 8 % (20-45) 6 % (20-45) Monocytes % (Manual) 5 % (1-10) 4 % (1-10) Eosinophils % (Manual) 1 % (0-3) 0 % (0-3) Basophils % (Manual) 0 % (0-2) 0 % (0-2) Band Neutrophils 8 % (0-8) 2 % (0-8) Platelet Estimate Adequate Adequate Platelet Morphology Normal Normal Red Blood Cell Morphology Normal Normal Arterial Blood pH 7.392 (7.350-7.450) Arterial Blood Partial Pressure CO2 36.1 mmHg (35.0-45.0) Arterial Blood Partial Pressure O2 65.6 mmHg (75.0-100.0) Arterial Blood HCO3 21.5 mmol/L (22.0-26.0) Arterial Blood Oxygen Saturation 92.6 % (95-100) Arterial Blood Base Excess -2.8 (-2-2) Dagoberto Test Sodium Level 143 MMOL/L (136-145) Potassium Level 4.0 MMOL/L (3.5-5.1) Chloride Level 106 MMOL/L (98-107) Carbon Dioxide Level 24 MMOL/L (21-32) Anion Gap 13 mmol/L (5-15) Blood Urea Nitrogen 54 mg/dL (7-18) Creatinine 2.0 MG/DL (0.55-1.30) Estimat Glomerular Filtration Rate mL/min (>60) Glucose Level 148 MG/DL (74-106) Calcium Level 9.8 MG/DL (8.5-10.1) Test 03/11/19 08:15 03/12/19 03:45 D-Dimer 2.05 mg/L FEU (0.00-0.49) Sodium Level 143 MMOL/L (136-145) Potassium Level 4.2 MMOL/L (3.5-5.1) Chloride Level 107 MMOL/L (98-107) Carbon Dioxide Level 27 MMOL/L (21-32) Anion Gap 9 mmol/L (5-15) Blood Urea Nitrogen 55 mg/dL (7-18) Creatinine 2.0 MG/DL (0.55-1.30) Estimat Glomerular Filtration Rate mL/min (>60) Glucose Level 136 MG/DL (74-106) Calcium Level 9.9 MG/DL (8.5-10.1) Total Bilirubin 0.8 MG/DL (0.2-1.0) Aspartate Amino Transf (AST/SGOT) 20 U/L (15-37) Alanine Aminotransferase (ALT/SGPT) 15 U/L (12-78) Alkaline Phosphatase 67 U/L (46-116) Pro-B-Type Natriuretic Peptide 531 pg/mL (0-125) Total Protein 8.4 G/DL (6.4-8.2) Albumin 3.3 G/DL (3.4-5.0) Globulin 5.1 g/dL Albumin/Globulin Ratio 0.6 (1.0-2.7) White Blood Count 9.2 K/UL (4.8-10.8) Red Blood Count 4.32 M/UL (4.20-5.40) Hemoglobin 12.9 G/DL (12.0-16.0) Hematocrit 39.1 % (37.0-47.0) Mean Corpuscular Volume 91 FL (80-99) Mean Corpuscular Hemoglobin 29.8 PG (27.0-31.0) Mean Corpuscular Hemoglobin Concent 33.0 G/DL (32.0-36.0) Red Cell Distribution Width 12.3 % (11.6-14.8) Platelet Count 145 K/UL (150-450) Mean Platelet Volume 8.1 FL (6.5-10.1) Neutrophils (%) (Auto) 79.3 % (45.0-75.0) Lymphocytes (%) (Auto) 10.3 % (20.0-45.0) Monocytes (%) (Auto) 9.3 % (1.0-10.0) Eosinophils (%) (Auto) 0.7 % (0.0-3.0) Basophils (%) (Auto) 0.4 % (0.0-2.0) Height (Feet): 5 Height (Inches): 8.00 Weight (Pounds): 144 Objective Vitals: reviewed General Appearance: NAD HEENT: normocephalic, atraumatic Neck: non-tender, normal alignment Breast: left breast with 1-2 cm mass, mobile, difficult to access borders Respiratory/Chest: normal breath sounds b/l Cardiovascular/Chest: normal peripheral pulses, normal rate Abdomen: normal bowel sounds, soft, nontender Extremities: normal range of motion Josué Viera MD Mar 12, 2019 09:59
--- NOTE | 2019-03-12 10:21 | NUR ---
DISCHARGE SWALLOW/SPEECH THERAPY SUMMARY AND EVALUATION: REFERRED FOR SWALLOW EVALUATION BY DR. HERNANDEZ, SEE FULL REPORT IN ST CARE ACTIVITY SECTION. DYSPHAGIA RISK FACTORS FOR THIS 84 Y.O. ADVANCED AGED FEMALE: ACUTE ISSUES: ADULT FTT WITH POOR FOR ONE WEEK PRIOR TO ADMIT AND NOW ONE WEEK MORE (2 WEEKS POOR TO NO PO INTAKE), DEHYDRATION, DESATURATION TO 80s NOW ON NONREBREATHER 15 LITERS MASK AND RR GOES UP TO 20 AT TIMES, AMS POSSIBLE SEPSIS, ENCEPHALOPATHY LUNG INFILTRATE NEW ON R BASILAR, MOVED TOO MUCH FOR CT HEAD SCAN H/O COPD, GERD, BREAST CA HAS A CONSERVATOR REJIZina TRIPP STATES OK TO HAVE CHIEF SAFETY OFFICER ARTIFICIAL NUTRITION IF NEEDS AT SNF ON A [facility] SOFT CHOPPED DIET AND THIN LIQUIDS NOW ON A MARIA L [facility] SOFT GROUND AND THIN LIQUIDS POOR INTAKE REFUSED MANY TIMES (SPITS OUT OR HAS TONGUE THRUST), 10 AND 30%. PER RD OK TO HAVE LIBERALIZED DIET AND ENSURE TID. PATIENT IS ALERT ONLY WITH MAX CUES TO OPEN EYES. WILL CLOSE THEM WHEN NOT STIMULATED. ON REBREATHER WHICH IS REMOVED BY RT WHEN PO TRIAL GIVEN (TO SEE IF SHE IS READY FOR MOD BARIUM SWALLOW STUDY ONLY). REQUIRED ORAL CARE HAD MILD-MOD AMOUNTS OF DRIED PHLEGM IN ROOF AND BACK OF MOUTH, DISLIKES ORAL CARE. ALSO HAD MILD AMOUNTS OF SECRETIONS SUCTIONED OUT OF THE BACK OF HER THROAT AND SIDES OF HER MOUTH. WOULD DESAT AT TIMES TO BELOW 80 IF COUGHED POST ASPIRATION. INITIAL IMPRESSIONS: S/S OF A SIGNIFICANT ORAL PREP AND OROPHARYNGEAL DYSPHAGIA WITH A SIGNIFICANT INCREASE IN OVERALL TRANSIT TIMES. GIVEN TSP NECTAR THICK WATER, DID NOT SWALLOW FOR 7 SECONDS WITH POOR HYOLARYNGEAL EXCURSION (WEAK SWALLOW) AND MILD ORAL RESIDUE REMOVED SINCE SHE DID NOT SWALLOW AGAIN TO COMMAND. GIVEN SMALL SIP VIA CUP NECTAR THICK WATER (TO SEE IF SHE HAD A BOLUS EFFECT MORE SENSORY AWARENESS OF BOLUS), PATIENT SWALLOWED AFTER 2 SECONDS WITH A STRONGER HYOLARYNGEAL EXCURSION, MIN ORAL RESIDUES SUCTIONED OUT BACK OF THROAT AND SIDES OF MOUTH AND COUGHED AFTER THE FIRST SWALLOW (COMPLETED 2 MORE SPONTANEOUS SWALLOWS AFTER THE FIRST. POOR OVERALL INTAKE RECOMMENDATIONS: PER DR HERNANDEZ, PATIENT IS NOT A CANDIDATE FOR NONORAL FEEDINGS (WILL GET AGITATED AND PULL IT OUT AND CANNOT HAVE NGT NOR PEG A LOCKED SNF SETTING. CONTINUE WITH PO INTAKE (COMFORT CARE AND QUALITY OF LIFE FOCUSED) BUT DOWNGRADE TO LIQUIFIED PUREED LIKE NECTAR THICK SOUP TSP LEVEL WITH POSTED ASP/REFLUX PRECAUTIONS AND ONE TO ONE FEEDING (WATCH FOR DESAT AND INCREASED RESP RATE). SEND HIGH LA SUPPLEMENTS OF ENSURE ENLIVE TID AND LIBERALIZE DIET TYPE PER RD). F/UP WITH [facility] FOR DYSPHAGIA MANAGEMENT AND TX AT [facility] SO WILL DC FROM [facility] NOW PT TO BE D/C TODAY. WILL HOLD ON MOD BARIUM SWALLOW STUDY (CAN DO OP) SINCE PT TO BE DC TODAY PER DR HERNANDEZ. LEFT MESSAGE WITH CONSERVATOR EDUCATED/TRAINED RN ELZA AND ARMAND HOWARD IN POSTED PRECAUTIONS.
[2019-03-12] MEDS: Enoxaparin Sodium 300mg/3ml vial SUBQ SCH (11:16)
[2019-03-12 12:00] VITALS: BP 126/58
--- NOTE | 2019-03-12 14:52 | Diagnostic Imaging Report ---
Indication: Abdominal pain, leukocytosis, abnormal renal function tests Technique: Starr-scale and duplex images of the upper abdomen were obtained Comparison: none Findings: Gallbladder demonstrates a large gallstone. This is near the neck, is much larger than the abnormality described in the gastric fundus on recent CT scan; probably does not represent that entity and appears to be occult on CT. Sonographic Rascon's sign is negative. Common bile duct measures 0.5 mm in diameter. No intrahepatic biliary ductal dilatation. Liver demonstrates normal echogenicity, no focal abnormality. Portal vein and hepatic veins are patent. Pancreas is unremarkable. Spleen is unremarkable. Left kidney measures 10.4 cm in length. Right kidney measures 10 cm length. Both kidneys demonstrate normal echogenicity. There is no hydronephrosis. Echogenic foci are seen in the bilateral renal sinuses. . Non-aneurysmal abdominal aorta . Impression: No definite abnormality seen to correspond to gallbladder fundal abnormality described on recent CT scan. The finding remains nonspecific Cholelithiasis, apparently occult on prior CT scan, in retrospect Negative for dilated bile ducts. Echogenic bilateral renal sinus foci, nonobstructive calculi versus artifacts
[2019-03-12 16:00] VITALS: BP 139/67
--- NOTE | 2019-03-12 19:10 | NUR ---
NURSE NOTES: Pt report received from Mary RN CLARK. pt remains stable. pt is alert and oriented times 1. pt is on a ribbon cleaner showing NSR, no signs symptoms of cardiac distress. pt is on a venturi mask satting at 99%, no signs symptoms of distress noted. pt bed is low, locked, armed, bed rails up times 3, call light in easy reach. will follow plan of care.
--- NOTE | 2019-03-12 19:24 | NUR ---
HAND-OFF: Report given to Pastor Hernandez RN. Pt. remain stable.
[2019-03-12 20:00] VITALS: BP 146/78
--- NOTE | 2019-03-12 23:40 | General Progress Note ---
Assessment/Plan Problem List: (1) Failure to thrive in adult ICD Codes: R62.7 - Failure to thrive in adult SNOMED: 486039921 Qualifiers: Qualified Codes: R62.7 - Adult failure to thrive (2) Hypertension ICD Codes: I10 - Essential (primary) hypertension SNOMED: 34983403 (3) Chronic obstructive pulmonary disease (COPD) ICD Codes: J44.9 - Chronic obstructive pulmonary disease, unspecified SNOMED: 34334683 (4) Schizo affective schizophrenia ICD Codes: F25.0 - Schizoaffective disorder, bipolar type SNOMED: 482532991 (5) Dementia ICD Codes: F03.90 - Unspecified dementia without behavioral disturbance SNOMED: 23730097 (6) Breast cancer ICD Codes: C50.919 - Malignant neoplasm of unspecified site of unspecified female breast SNOMED: 702402911 Status: stable, deteriorating, other - Very aggitated Assessment/Plan: She will be discharged and she will have US guided bx of mammogram as outpatient. Following that surgical evaluation. patient is agitated and being evaluated by psychiatry. Will discharge when neuro status improves Subjective Date patient seen: Mar 11, 2019 Time patient seen: 10:00 ROS Limited/Unobtainable: Yes Constitutional: Reports: other - dyspnic on 100% FIO2 aspirated HEENT: Reports: no symptoms Cardiovascular: Reports: no symptoms Respiratory: Reports: shortness of breath Gastrointestinal/Abdominal: Reports: no symptoms Genitourinary: Reports: no symptoms Neurologic/Psychiatric: Reports: weakness Endocrine: Reports: no symptoms Hematologic/Lymphatic: Reports: no symptoms Allergies: Coded Allergies: No Known Allergies (Unverified , 03/05/19) Objective Last 24 Hour Vital Signs Date Time Temp Pulse Resp B/P (MAP) Pulse Ox O2 Delivery O2 Flow Rate FiO2 03/12/19 23:20 90 18 98 Venturi Mask 6.0 35 90 18 96 03/12/19 21:00 Non-Rebreather 03/12/19 20:00 86 03/12/19 20:00 98.6 92 24 146/78 (100) 96 03/12/19 19:39 89 18 99 Venturi Mask 6.0 35 87 18 97 03/12/19 16:00 98.6 94 19 139/67 (91) 97 03/12/19 15:38 99 03/12/19 15:00 88 20 98 Venturi Mask 6.0 35 85 18 97 03/12/19 12:00 97.9 84 16 126/58 (80) 95 03/12/19 11:43 88 03/12/19 11:19 84 18 98 Nasal Cannula 2.0 28 90 20 93 03/12/19 09:00 Non-Rebreather 03/12/19 08:00 98.0 88 18 120/83 (95) 92 03/12/19 07:36 84 03/12/19 07:19 83 20 100 Venturi Mask 14.0 55 84 20 100 03/12/19 04:00 97.2 72 20 110/56 (74) 95 03/12/19 04:00 82 03/12/19 03:56 81 18 99 Non-Rebreather 10.0 100 79 18 96 03/12/19 00:00 98.0 82 16 108/61 (77) 97 03/12/19 00:00 76 Intake and Output 03/11/19 03/12/19 19:00 07:00 Intake Total 1110.0 ml 1310.0 ml Output Total 50 ml 250 ml Balance 1060.0 ml 1060.0 ml IV Total 1110.0 ml 1310.0 ml Output Urine Total 50 ml 250 ml Laboratory Tests 03/12/19 03:45: White Blood Count 9.2, Red Blood Count 4.32, Hemoglobin 12.9, Hematocrit 39.1, Mean Corpuscular Volume 91, Mean Corpuscular Hemoglobin 29.8, Mean Corpuscular Hemoglobin Concent 33.0, Red Cell Distribution Width 12.3, Platelet Count 145L, Mean Platelet Volume 8.1, Neutrophils (%) (Auto) 79.3H, Lymphocytes (%) (Auto) 10.3L, Monocytes (%) (Auto) 9.3, Eosinophils (%) (Auto) 0.7, Basophils (%) (Auto ) 0.4, HIV (1&2) Antibody Rapid Negative 03/12/19 11:05: Hepatitis A IgM Antibody [Pending], Hepatitis B Surface Antigen [Pending], Hepatitis B Core IgM Antibody [Pending], Hepatitis C Antibody [Pending] 03/12/19 12:36: Arterial Blood pH 7.407, Arterial Blood Partial Pressure CO2 36.4, Arterial Blood Partial Pressure O2 64.4L, Arterial Blood HCO3 22.4, Arterial Blood Oxygen Saturation 93.0L, Arterial Blood Base Excess -1.8, Dagoberto Test Positive Height (Feet): 5 Height (Inches): 8.00 Weight (Pounds): 144 General Appearance: lethargic EENT: PERRL/EOMI Neck: non-tender, normal alignment Cardiovascular: regular rhythm, no gallop/murmur Respiratory/Chest: chest wall non-tender, rhonchi - bilaterally Abdomen: normal bowel sounds Extremities: normal range of motion Edema: trace edema Neurologic: alpine guide II-XII grossly normal, no motor/sensory deficits Skin: normal pigmentation Lymphatic: normal anterior cervical (L), normal anterior cervical (R), normal posterior cervical (L), normal posterior cervical (R), normal submandibular (L) , normal submandibular (R), normal supraclavicular (L), normal supraclavicular ( R), normal axillary (L), normal axillary (R), normal inguinal (L), normal inguinal (R), normal other Jose Francisco Winters MD Mar 12, 2019 23:40
--- NOTE | 2019-03-12 23:50 | General Progress Note ---
Assessment/Plan Problem List: (1) Failure to thrive in adult ICD Codes: R62.7 - Failure to thrive in adult SNOMED: 438533976 Qualifiers: Qualified Codes: R62.7 - Adult failure to thrive (2) Hypertension ICD Codes: I10 - Essential (primary) hypertension SNOMED: 52734759 (3) Chronic obstructive pulmonary disease (COPD) ICD Codes: J44.9 - Chronic obstructive pulmonary disease, unspecified SNOMED: 67867433 (4) Schizo affective schizophrenia ICD Codes: F25.0 - Schizoaffective disorder, bipolar type SNOMED: 396011703 (5) Dementia ICD Codes: F03.90 - Unspecified dementia without behavioral disturbance SNOMED: 88441527 (6) Breast cancer ICD Codes: C50.919 - Malignant neoplasm of unspecified site of unspecified female breast SNOMED: 869057688 Status: stable, deteriorating, other - Very aggitated Status Narrative Patient remains on NRM. Attempt at lowering FIO2 was not possible. Assessment/Plan: She will be discharged and she will have US guided bx of mammogram as outpatient. Following that surgical evaluation. patient is agitated and being evaluated by psychiatry. Will discharge when neuro status improves Subjective Date patient seen: Mar 12, 2019 ROS Limited/Unobtainable: Yes Constitutional: Reports: no symptoms HEENT: Reports: no symptoms Cardiovascular: Reports: no symptoms Respiratory: Reports: no symptoms Gastrointestinal/Abdominal: Reports: no symptoms Genitourinary: Reports: no symptoms Neurologic/Psychiatric: Reports: no symptoms Endocrine: Reports: no symptoms Hematologic/Lymphatic: Reports: no symptoms Allergies: Coded Allergies: No Known Allergies (Unverified , 03/05/19) Objective Last 24 Hour Vital Signs Date Time Temp Pulse Resp B/P (MAP) Pulse Ox O2 Delivery O2 Flow Rate FiO2 03/12/19 23:20 90 18 98 Venturi Mask 6.0 35 90 18 96 03/12/19 21:00 Non-Rebreather 03/12/19 20:00 86 03/12/19 20:00 98.6 92 24 146/78 (100) 96 03/12/19 19:39 89 18 99 Venturi Mask 6.0 35 87 18 97 03/12/19 16:00 98.6 94 19 139/67 (91) 97 03/12/19 15:38 99 03/12/19 15:00 88 20 98 Venturi Mask 6.0 35 85 18 97 03/12/19 12:00 97.9 84 16 126/58 (80) 95 03/12/19 11:43 88 03/12/19 11:19 84 18 98 Nasal Cannula 2.0 28 90 20 93 03/12/19 09:00 Non-Rebreather 03/12/19 08:00 98.0 88 18 120/83 (95) 92 03/12/19 07:36 84 03/12/19 07:19 83 20 100 Venturi Mask 14.0 55 84 20 100 03/12/19 04:00 97.2 72 20 110/56 (74) 95 03/12/19 04:00 82 03/12/19 03:56 81 18 99 Non-Rebreather 10.0 100 79 18 96 03/12/19 00:00 98.0 82 16 108/61 (77) 97 03/12/19 00:00 76 Intake and Output 03/11/19 03/12/19 19:00 07:00 Intake Total 1110.0 ml 1310.0 ml Output Total 50 ml 250 ml Balance 1060.0 ml 1060.0 ml IV Total 1110.0 ml 1310.0 ml Output Urine Total 50 ml 250 ml Laboratory Tests 03/12/19 03:45: White Blood Count 9.2, Red Blood Count 4.32, Hemoglobin 12.9, Hematocrit 39.1, Mean Corpuscular Volume 91, Mean Corpuscular Hemoglobin 29.8, Mean Corpuscular Hemoglobin Concent 33.0, Red Cell Distribution Width 12.3, Platelet Count 145L, Mean Platelet Volume 8.1, Neutrophils (%) (Auto) 79.3H, Lymphocytes (%) (Auto) 10.3L, Monocytes (%) (Auto) 9.3, Eosinophils (%) (Auto) 0.7, Basophils (%) (Auto ) 0.4, HIV (1&2) Antibody Rapid Negative 03/12/19 11:05: Hepatitis A IgM Antibody [Pending], Hepatitis B Surface Antigen [Pending], Hepatitis B Core IgM Antibody [Pending], Hepatitis C Antibody [Pending] 03/12/19 12:36: Arterial Blood pH 7.407, Arterial Blood Partial Pressure CO2 36.4, Arterial Blood Partial Pressure O2 64.4L, Arterial Blood HCO3 22.4, Arterial Blood Oxygen Saturation 93.0L, Arterial Blood Base Excess -1.8, Dagoberto Test Positive Height (Feet): 5 Height (Inches): 8.00 Weight (Pounds): 144 General Appearance: WD/WN EENT: PERRL/EOMI Neck: non-tender Cardiovascular: normal peripheral pulses Respiratory/Chest: chest wall non-tender Abdomen: normal bowel sounds, non tender Pelvis: normal external exam Genitourinary/Rectal: normal genital exam Extremities: normal range of motion, non-tender Edema: trace edema Neurologic: no motor/sensory deficits Skin: normal pigmentation Lymphatic: normal anterior cervical (L), normal anterior cervical (R), normal posterior cervical (L), normal posterior cervical (R), normal submandibular (L) , normal submandibular (R), normal supraclavicular (L), normal supraclavicular ( R), normal axillary (L), normal axillary (R), normal inguinal (L), normal inguinal (R), normal other Jose Francisco Winters MD Mar 12, 2019 23:50
[2019-03-13] VITALS (7 sets, daily range): BP systolic 118–150; BP diastolic 69–90
--- NOTE | 2019-03-13 00:30 | Progress Note ---
DATE: 03/12/2019 SUBJECTIVE: The patient is in stepdown unit, not eating, spitting out medication, having episodes of agitation, poor insight, non-engaged. MENTAL STATUS EXAMINATION: The patient is alert, confused, disoriented. Mood is agitated. Affect is flat. Thought process, concrete. Thought content, no suicidal or homicidal ideation. Cognition is impaired. Insight and judgment is impaired. ASSESSMENT: 1. Dementia with behavior disturbance. 2. Cognitive impairment. PLAN: Provide the patient with reality orientation and supportive therapy. Owen Higgins M.D. DR: Colt JOB#: [id number] CC:
[2019-03-13] MEDS: Albuterol/Ipratropium 3ml neb HHN SCH ×6 (03:27→22:34)
--- NOTE | 2019-03-13 07:14 | NUR ---
HAND-OFF: Report given to Pastor Holley day shift RN. Pt remains stable.
--- NOTE | 2019-03-13 07:30 | NUR ---
NURSE NOTES: Received report from LAZARO Altamirano. Patient is resting in bed, in stable condition. On venturi mask 10L SpO2 100%. Observed no presence of pain or discomfort at this time. Bed is in lowest position, brakes engaged. Call light is kept within easy reach. Will continue to monitor patient.
[2019-03-13] MEDS: Piperacillin/Tazobactam 3.375 GM in NS 110 ML IVPB SCH ×4 (08:22→17:45)
--- NOTE | 2019-03-13 09:46 | NUR ---
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 CURRENT DIET: Regular, liquify puree NTL + ensure TID PO DIET RECOMMENDATIONS: LIBERALIZED REGULAR DIET (texture per VICE PRESIDENT RISK MANAGEMENT) + Ensure TID ENTERAL NUTRITION RECOMMENDATIONS: Glucerna 1.2 @ 60ml/hr x 24 hrs to provide 1440ml, 1728kcal, 86g prot, 1159ml free water * If TF part of POC and indicated, obtain GI access. * Rec carb controlled TF formula of Glucerna 1.2 for elev FBGs * Initiate Glucerna 1.2 @ 20ml/hr x 6 hrs * Advance TF 10ml q 4-6 hrs as tolerated to goal rate. ------ ADDITIONAL RECOMMENDATIONS: 1) Per SNF-> HT: 5'8" WT: 143# 2) Rec to recalibrate bedscale wt -> bedscale wt on 03/1130=[id number] vs EMR wt 147lbs 3) F/up w/ [employer]K [employer]NAG[employer] eval-> now on liquify puree/ NTL 4) Monitor PO intake closely -> pt admitted w/ FTT, cont w/ poor PO -> consider nonoral feedings 5) A1C for eval of glycemic control: mildly elev FBGs (136 148) Addendum: 03/13/19 at [address] Per RN, improved po intake this morning- 75%. Will continue to monitor.
[2019-03-13] MEDS: Enoxaparin Sodium 300mg/3ml vial SUBQ SCH (10:02)
--- NOTE | 2019-03-13 14:46 | Hematology/Onc Progress Note ---
Assessment/Plan Assessment/Plan Assessment and Recs; # Left breast mass with soft borders on exam, requires conservator for bx --> ct chest 2 cm left breast mass, concerning for neoplasm particularly given. Stated clinical findings Left axillary adenopathy is likely metastatic --> reviewed clinical exam, still needs to have a mammo done --> excisional biopsy v us guided biopsy (meed consent) --> seen by surg, needs consent, have called them and jose RN # Thrombocytopenia new onset --> obtain plt count, trend as needed, hep and hiv, us abd prn --> plt 175-->145k --> cbc re-ordered --> abx reviewed # Failure to thrive (FTT) - decreased bmi and low protein --> have ordered for cea level --> will obtain q3 day caloric counts --> may consider mirtazapine as appetite stimulant --> GI consult on a prn basis, as needed for endosc # Leukocytosis, mild --> 13-->13 --> r/o infection, abx as needed Zosyn # Dehydration --> ivf have been given --> bmp ordered # Confusion --> potentially dementia related --> psych eval prn --> has conservator # Dvt ppx lovenox sq The timing of this note does not necessarily reflect the time of the patient was seen. Greatly appreciate consultation. Subjective Constitutional: Denies: no symptoms, chills, fever, malaise, weakness, other HEENT: Denies: no symptoms, eye pain, blurred vision, tearing, double vision, ear pain, ear discharge, nose pain, nose congestion, throat pain, throat swelling, mouth pain, mouth swelling, other Cardiovascular: Denies: no symptoms, chest pain, edema, irregular heart rate, lightheadedness, palpitations, syncope, other Respiratory: Denies: no symptoms, cough, shortness of breath, SOB with excertion, SOB at rest, sputum, wheezing, other Gastrointestinal/Abdominal: Denies: no symptoms, abdomen distended, abdominal pain, black stools, tarry stools, blood in stool, constipated, diarrhea, difficulty swallowing, nausea, poor appetite, poor fluid intake, rectal bleeding , vomiting, other Genitourinary: Denies: no symptoms, burning, discharge, frequency, flank pain, hematuria, incontinence, pain, urgency, other Neurologic/Psychiatric: Denies: no symptoms, anxiety, depressed, emotional problems, headache, numbness, paresthesia, pre-existing deficit, seizure, tingling, tremors, weakness, other Allergies: Coded Allergies: No Known Allergies (Unverified , 03/05/19) Subjective .13: remains altered, seen by [facility], potential dc once improves ams 03/10: Jose rn, consent for scan was signed 03/11: requiring restartings, imaging reviewed from last night 03/12: no bleeding or chills noted, no major changes 03/13: no bleeding nor chills, is stable otherwise, no events Objective Objective Current Medications Medications (Trade) Dose Ordered Sig/León Route PRN Reason Start Time Stop Time Status Last Admin Dose Admin Acetaminophen (Tylenol) 650 mg Q4H PRN ORAL Mild Pain/Temp > 100.5 03/11/19 05:00 04/04/19 04:59 Albuterol/ Ipratropium (Albuterol/ Ipratropium) 3 ml Q4HRT HHN 03/11/19 07:00 03/16/19 06:59 03/13/19 11:20 Enoxaparin Sodium (Lovenox) 70 mg Q24H SUBQ 03/11/19 10:00 04/10/19 09:59 03/13/19 10:02 Haloperidol Lactate (Haldol) 5 mg Q6H PRN IM Agitation 03/11/19 15:30 04/10/19 15:29 Magnesium Hydroxide (Mom) 30 ml DAILYPRN PRN ORAL Constipation 03/11/19 05:00 04/04/19 04:59 Olanzapine (ZyPREXA) 5 mg TID ORAL 03/11/19 09:00 04/08/19 08:59 03/13/19 12:09 Pantoprazole (Protonix) 40 mg DAILY@0630 ORAL 03/11/19 06:30 04/05/19 06:29 03/13/19 05:49 Piperacillin Sod/ Tazobactam Sod 3.375 gm/Sodium Chloride 110 ml @ 27.5 mls/hr Q8H IVPB 03/11/19 09:00 03/18/19 08:59 03/13/19 08:22 Sodium Chloride 1,000 ml @ 100 mls/hr Q10H IV 03/11/19 06:15 04/10/19 06:14 03/13/19 08:23 Last 24 Hour Vital Signs Date Time Temp Pulse Resp B/P (MAP) Pulse Ox O2 Delivery O2 Flow Rate FiO2 03/13/19 12:00 97.7 100 19 140/80 (100) 100 03/13/19 12:00 101 03/13/19 11:21 85 16 98 Nasal Cannula 3.0 32 88 18 97 03/13/19 09:00 Non-Rebreather 03/13/19 08:00 98.2 95 17 148/78 (101) 97 03/13/19 08:00 101 03/13/19 07:09 92 16 99 Venturi Mask 6.0 35 84 16 98 03/13/19 04:00 86 03/13/19 04:00 98.8 99 18 136/73 (94) 99 03/13/19 03:27 90 18 98 Venturi Mask 6.0 35 87 18 97 03/13/19 00:00 89 03/13/19 00:00 97.9 82 23 150/90 (110) 97 03/12/19 23:20 90 18 98 Venturi Mask 6.0 35 90 18 96 03/12/19 21:00 Non-Rebreather 03/12/19 20:00 86 03/12/19 20:00 98.6 92 24 146/78 (100) 96 03/12/19 19:39 89 18 99 Venturi Mask 6.0 35 87 18 97 03/12/19 16:00 98.6 94 19 139/67 (91) 97 03/12/19 15:38 99 03/12/19 15:00 88 20 98 Venturi Mask 6.0 35 85 18 97 03/12/19 12:00 97.9 84 16 126/58 (80) 95 03/12/19 11:43 88 03/12/19 11:19 84 18 98 Nasal Cannula 2.0 28 90 20 93 03/12/19 09:00 Non-Rebreather 03/12/19 08:00 98.0 88 18 120/83 (95) 92 03/12/19 07:36 84 03/12/19 07:19 83 20 100 Venturi Mask 14.0 55 84 20 100 03/12/19 04:00 97.2 72 20 110/56 (74) 95 03/12/19 04:00 82 03/12/19 03:56 81 18 99 Non-Rebreather 10.0 100 79 18 96 03/12/19 00:00 98.0 82 16 108/61 (77) 97 03/12/19 00:00 76 03/11/19 23:34 78 18 100 Non-Rebreather 10.0 100 75 18 100 03/11/19 21:00 Room Air 03/11/19 20:00 97.0 81 16 103/56 (72) 98 03/11/19 20:00 87 03/11/19 19:43 88 20 100 Non-Rebreather 15.0 100 87 20 99 03/11/19 19:43 87 20 99 Non-Rebreather 15.0 100 03/11/19 16:00 97.0 83 25 120/59 (79) 99 03/11/19 16:00 110 03/11/19 15:25 84 20 98 Non-Rebreather 10.0 100 82 20 96 Intake and Output 03/12/19 03/13/19 18:59 06:59 Intake Total 1080 ml 1310.0 ml Output Total 200 ml 400 ml Balance 880 ml 910.0 ml Intake Oral 280 ml IV Total 800 ml 1310.0 ml Output Urine Total 200 ml 400 ml # Voids 4 Labs Test 03/11/19 03:44 03/11/19 04:00 03/11/19 05:00 03/11/19 08:15 Arterial Blood pH 7.392 (7.350-7.450) Arterial Blood Partial Pressure CO2 36.1 mmHg (35.0-45.0) Arterial Blood Partial Pressure O2 65.6 mmHg (75.0-100.0) Arterial Blood HCO3 21.5 mmol/L (22.0-26.0) Arterial Blood Oxygen Saturation 92.6 % (95-100) Arterial Blood Base Excess -2.8 (-2-2) Dagoberto Test White Blood Count 13.1 K/UL (4.8-10.8) Red Blood Count 5.11 M/UL (4.20-5.40) Hemoglobin 15.2 G/DL (12.0-16.0) Hematocrit 45.9 % (37.0-47.0) Mean Corpuscular Volume 90 FL (80-99) Mean Corpuscular Hemoglobin 29.8 PG (27.0-31.0) Mean Corpuscular Hemoglobin Concent 33.2 G/DL (32.0-36.0) Red Cell Distribution Width 12.4 % (11.6-14.8) Platelet Count 166 K/UL (150-450) Mean Platelet Volume 7.4 FL (6.5-10.1) Neutrophils (%) (Auto) % (45.0-75.0) Lymphocytes (%) (Auto) % (20.0-45.0) Monocytes (%) (Auto) % (1.0-10.0) Eosinophils (%) (Auto) % (0.0-3.0) Basophils (%) (Auto) % (0.0-2.0) Differential Total Cells Counted 100 Neutrophils % (Manual) 88 % (45-75) Lymphocytes % (Manual) 6 % (20-45) Monocytes % (Manual) 4 % (1-10) Eosinophils % (Manual) 0 % (0-3) Basophils % (Manual) 0 % (0-2) Band Neutrophils 2 % (0-8) Platelet Estimate Adequate Platelet Morphology Normal Red Blood Cell Morphology Normal Sodium Level 143 MMOL/L (136-145) 143 MMOL/L (136-145) Potassium Level 4.0 MMOL/L (3.5-5.1) 4.2 MMOL/L (3.5-5.1) Chloride Level 106 MMOL/L (98-107) 107 MMOL/L (98-107) Carbon Dioxide Level 24 MMOL/L (21-32) 27 MMOL/L (21-32) Anion Gap 13 mmol/L (5-15) 9 mmol/L (5-15) Blood Urea Nitrogen 54 mg/dL (7-18) 55 mg/dL (7-18) Creatinine 2.0 MG/DL (0.55-1.30) 2.0 MG/DL (0.55-1.30) Estimat Glomerular Filtration Rate mL/min (>60) mL/min (>60) Glucose Level 148 MG/DL (74-106) 136 MG/DL (74-106) Calcium Level 9.8 MG/DL (8.5-10.1) 9.9 MG/DL (8.5-10.1) D-Dimer 2.05 mg/L FEU (0.00-0.49) Total Bilirubin 0.8 MG/DL (0.2-1.0) Aspartate Amino Transf (AST/SGOT) 20 U/L (15-37) Alanine Aminotransferase (ALT/SGPT) 15 U/L (12-78) Alkaline Phosphatase 67 U/L (46-116) Pro-B-Type Natriuretic Peptide 531 pg/mL (0-125) Total Protein 8.4 G/DL (6.4-8.2) Albumin 3.3 G/DL (3.4-5.0) Globulin 5.1 g/dL Albumin/Globulin Ratio 0.6 (1.0-2.7) Test 03/12/19 03:45 03/12/19 11:05 03/12/19 12:36 White Blood Count 9.2 K/UL (4.8-10.8) Red Blood Count 4.32 M/UL (4.20-5.40) Hemoglobin 12.9 G/DL (12.0-16.0) Hematocrit 39.1 % (37.0-47.0) Mean Corpuscular Volume 91 FL (80-99) Mean Corpuscular Hemoglobin 29.8 PG (27.0-31.0) Mean Corpuscular Hemoglobin Concent 33.0 G/DL (32.0-36.0) Red Cell Distribution Width 12.3 % (11.6-14.8) Platelet Count 145 K/UL (150-450) Mean Platelet Volume 8.1 FL (6.5-10.1) Neutrophils (%) (Auto) 79.3 % (45.0-75.0) Lymphocytes (%) (Auto) 10.3 % (20.0-45.0) Monocytes (%) (Auto) 9.3 % (1.0-10.0) Eosinophils (%) (Auto) 0.7 % (0.0-3.0) Basophils (%) (Auto) 0.4 % (0.0-2.0) HIV (1&2) Antibody Rapid Negative (NEGATIVE) Hepatitis A IgM Antibody Negative (Negative) Hepatitis B Surface Antigen Negative (Negative) Hepatitis B Core IgM Antibody Negative (Negative) Hepatitis C Antibody 0.1 s/co ratio (0.0-0.9) Arterial Blood pH 7.407 (7.350-7.450) Arterial Blood Partial Pressure CO2 36.4 mmHg (35.0-45.0) Arterial Blood Partial Pressure O2 64.4 mmHg (75.0-100.0) Arterial Blood HCO3 22.4 mmol/L (22.0-26.0) Arterial Blood Oxygen Saturation 93.0 % (95-100) Arterial Blood Base Excess -1.8 (-2-2) Dagoberto Test Positive Height (Feet): 5 Height (Inches): 8.00 Weight (Pounds): 144 Objective Vitals: reviewed General Appearance: NAD HEENT: normocephalic, atraumatic Neck: non-tender, normal alignment Breast: left breast with 1-2 cm mass, mobile, difficult to access borders Respiratory/Chest: normal breath sounds b/l Cardiovascular/Chest: normal peripheral pulses, normal rate Abdomen: normal bowel sounds, soft, nontender Extremities: normal range of motion Josué Viera MD Mar 13, 2019 14:46
[2019-03-13] MEDS ORDERED: Tubing IV Secondary IV ONE (15:01)
[2019-03-13] MEDS ORDERED: 1/2 NS 1000ml IV ONE ×2 (15:01→15:05)
[2019-03-13] MEDS ORDERED: NS 275ml ONE ×2 (15:01→15:05)
--- NOTE | 2019-03-13 19:00 | NUR ---
NURSE NOTES: Dr. Winters ordered BMP and CBC for tomorrow AM. Orders entered, noted, and carried out. Will continue to monitor patient.
--- NOTE | 2019-03-13 19:20 | NUR ---
NURSE NOTES: Received report from Pastor WILLIS, pt. in bed awake- A/O x'1- to name, no signs or symptoms of acute cardiac or respiratory distress noted, bed in lowest position and call light within easy reach, side rails up x's 3 and safety brakes engaged, pt. appears to be sating well on 2L NC- no distress noted, pt. appears to be resting comfortably- and appears to be clean and dry, pure wick intact and set to suction, RT. Hand 22G running 1/2 NS at 100cc/hr- IV intact and patent, safety measures continued, will continue with plan of care. Addendum: 03/13/19 at 2017 by GEOVANNI VALLADARES RN RN bilateral soft restraints removed and bilateral pulses palpable and skin intact.
--- NOTE | 2019-03-13 19:27 | NUR ---
HAND-OFF: Report given to LAZARO Gray.
--- NOTE | 2019-03-13 23:50 | General Progress Note ---
Assessment/Plan Problem List: (1) Failure to thrive in adult ICD Codes: R62.7 - Failure to thrive in adult SNOMED: 424547347 Qualifiers: Qualified Codes: R62.7 - Adult failure to thrive (2) Hypertension ICD Codes: I10 - Essential (primary) hypertension SNOMED: 87895420 (3) Chronic obstructive pulmonary disease (COPD) ICD Codes: J44.9 - Chronic obstructive pulmonary disease, unspecified SNOMED: 48260138 (4) Schizo affective schizophrenia ICD Codes: F25.0 - Schizoaffective disorder, bipolar type SNOMED: 694000706 (5) Dementia ICD Codes: F03.90 - Unspecified dementia without behavioral disturbance SNOMED: 20457416 (6) Breast cancer ICD Codes: C50.919 - Malignant neoplasm of unspecified site of unspecified female breast SNOMED: 124251432 Status: stable, progressing, deteriorating, other - Very aggitated Status Narrative She is improving and oxygenation and renal function is improving. Will check labs Assessment/Plan: She will be discharged and she will have US guided bx of mammogram as outpatient. Following that surgical evaluation. patient is agitated and being evaluated by psychiatry. Will discharge when neuro status improves Subjective Date patient seen: Mar 13, 2019 ROS Limited/Unobtainable: Yes Constitutional: Reports: weakness, other - She is improving. At times she can tolerate Nasal canula HEENT: Reports: no symptoms Cardiovascular: Reports: no symptoms Respiratory: Reports: cough, shortness of breath Gastrointestinal/Abdominal: Reports: no symptoms Genitourinary: Reports: no symptoms Neurologic/Psychiatric: Reports: no symptoms Endocrine: Reports: no symptoms Hematologic/Lymphatic: Reports: no symptoms Allergies: Coded Allergies: No Known Allergies (Unverified , 03/05/19) Objective Last 24 Hour Vital Signs Date Time Temp Pulse Resp B/P (MAP) Pulse Ox O2 Delivery O2 Flow Rate FiO2 03/13/19 22:35 101 22 97 Nasal Cannula 3.0 32 102 20 97 03/13/19 21:00 Non-Rebreather 03/13/19 20:09 98.7 108 22 118/69 (85) 95 03/13/19 20:00 98.5 108 20 118/69 (85) 95 03/13/19 19:24 111 03/13/19 19:01 100 22 95 Nasal Cannula 3.0 32 99 22 96 03/13/19 16:00 98.0 100 21 145/82 (103) 95 03/13/19 16:00 99 03/13/19 15:29 101 20 99 Nasal Cannula 3.0 32 98 22 98 03/13/19 12:00 97.7 100 19 140/80 (100) 100 03/13/19 12:00 101 03/13/19 11:21 85 16 98 Nasal Cannula 3.0 32 88 18 97 03/13/19 09:00 Non-Rebreather 03/13/19 08:00 98.2 95 17 148/78 (101) 97 03/13/19 08:00 101 03/13/19 07:09 92 16 99 Venturi Mask 6.0 35 84 16 98 03/13/19 04:00 86 03/13/19 04:00 98.8 99 18 136/73 (94) 99 03/13/19 03:27 90 18 98 Venturi Mask 6.0 35 87 18 97 03/13/19 00:00 89 03/13/19 00:00 97.9 82 23 150/90 (110) 97 Intake and Output 03/12/19 03/13/19 19:00 07:00 Intake Total 1080 ml 1310.0 ml Output Total 200 ml 400 ml Balance 880 ml 910.0 ml Intake Oral 280 ml IV Total 800 ml 1310.0 ml Output Urine Total 200 ml 400 ml # Voids 4 Height (Feet): 5 Height (Inches): 8.00 Weight (Pounds): 144 General Appearance: no apparent distress EENT: PERRL/EOMI Neck: non-tender Cardiovascular: normal peripheral pulses, normal rate, regular rhythm Respiratory/Chest: chest wall non-tender, decreased breath sounds, rhonchi - bilaterally Abdomen: normal bowel sounds, non tender, soft Extremities: normal range of motion, non-tender Edema: no edema noted Arm (L), no edema noted Arm (R), no edema noted Leg (L), no edema noted Leg (R), no edema noted Pedal (L), no edema noted Pedal (R), no edema noted Generalized Jose Francisco Winters MD Mar 13, 2019 23:49
[2019-03-14] VITALS: BP 146/89
[2019-03-14] MEDS: Piperacillin/Tazobactam 3.375 GM in NS 110 ML IVPB SCH ×3 (00:04→16:42)
[2019-03-14] MEDS: Albuterol/Ipratropium 3ml neb HHN SCH ×6 (03:45→23:20)
[2019-03-14 04:00] VITALS: BP 145/74
[2019-03-14 05:19] LABS: BASOPHILS % (AUTO) 0.3 % (0.0-2.0); EOSINOPHILS % (AUTO) 0.9 % (0.0-3.0); HEMATOCRIT 38.3 % (37.0-47.0); HEMOGLOBIN 12.8 G/DL (12.0-16.0); LYMPHOCYTES % (AUTO) 12.1 % (20.0-45.0); MEAN CORPUSCULAR VOLUME 89 FL (80-99); MONOCYTES % (AUTO) 7.7 % (1.0-10.0); NEUTROPHILS % (AUTO) 79.1 % (45.0-75.0); PLATELET COUNT 177 K/UL (150-450); RED BLOOD COUNT 4.32 M/UL (4.20-5.40); RED CELL DISTRIBUTION WIDTH 11.7 % (11.6-14.8); WHITE BLOOD COUNT 7.7 K/UL (4.8-10.8)
[2019-03-14 05:30] LABS: ALANINE AMINOTRANSFERASE 19 U/L (12-78); ALBUMIN 2.4 G/DL (3.4-5.0); ALBUMIN/GLOBULIN RATIO 0.5 (1.0-2.7); ALKALINE PHOSPHATASE 63 U/L (46-116); ANION GAP 12 mmol/L (5-15); BLOOD UREA NITROGEN 12 mg/dL (7-18); CALCIUM 9.2 MG/DL (8.5-10.1); CARBON DIOXIDE 23 MMOL/L (21-32); CHLORIDE 105 MMOL/L (98-107); CREATININE 0.8 MG/DL (0.55-1.30); POTASSIUM 3.2 MMOL/L (3.5-5.1); SODIUM 140 MMOL/L (136-145)
[2019-03-14 06:28] LABS: ASPARTATE AMINO TRANSFERASE 28 U/L (15-37)
--- NOTE | 2019-03-14 07:18 | NUR ---
HAND-OFF: Report given to Lilia RN, pt. remains stable and no signs of distress noted. Nurse aware to f/u on abnormal labs.
--- NOTE | 2019-03-14 07:33 | NUR ---
NURSE NOTES: Received report from Marina RN, pt. in bed awake- A/O x'1- to name, no signs or symptoms of acute cardiac or respiratory distress noted, pt sating 90% well on venturi mask 40%- no distress noted and pt. resting comfortably Patient is clean and dry, skin is intact. Bilateral soft wrist restraints applied. Assessed CMS, remains in tact. RT. Hand 22G running 1/2 NS at 100cc/hr- IV intact and patent Safety measures and aspiration precautions continued, will continue with plan of care. Bed remains in lowest position, call light within easy reach, side rails up x's 3 and safety brakes engaged.
[2019-03-14 08:00] VITALS: BP 140/77
--- NOTE | 2019-03-14 08:00 | NUR ---
NURSE NOTES: Bilateral wrist restraints remain applied for patient safety. Extremities checked for CMS which remain intact. Skin remains intact. Patient denies pain. Bed remains in lowest position, safety wheels engaged, call light within reach and bed alarm activated on zone 2.
--- NOTE | 2019-03-14 09:00 | NUR ---
NURSE NOTES: Patient provided with a bed bath and partial linen change. [place] changed. Patient tolerated care well continues to sat between 90-91% on venturi mask. Extremities checked for CMS which remain intact. Skin remains intact. Patient denies pain. Bed remains in lowest position, safety wheels engaged, call light within reach and bed alarm activated on zone 2.
[2019-03-14] MEDS: Enoxaparin Sodium 300mg/3ml vial SUBQ SCH (09:43)
--- NOTE | 2019-03-14 10:00 | NUR ---
NURSE NOTES: Patient provided with oral care. Patient tolerated oral care well continues to sat between 90-92% on venturi mask. Bilateral soft wrist restraints remain applied for patient safety; extremities checked for CMS which remain intact. Skin remains intact. Patient denies pain. Bed remains in lowest position, safety wheels engaged, call light within reach and bed alarm activated on zone 2.
--- NOTE | 2019-03-14 11:37 | NUR ---
NURSE NOTES: New IV placed per protocol. L hand 22g IV placed. IV catheter asymptomatic and patent. 1/2 NS infusing at 100mL/hr and tubing changed per protocol. Patient tolerated placement of IV catheter well continues to sat between 89-92% on venturi mask. Bilateral soft wrist restraints remain applied for patient safety; extremities checked for CMS which remain intact. Skin remains intact. Patient denies pain. Repositioned patient and ensured skin remains intact. Bed remains in lowest position, safety wheels engaged, call light within reach and bed alarm activated on zone 2.
--- NOTE | 2019-03-14 11:49 | Hematology/Onc Progress Note ---
Assessment/Plan Assessment/Plan Assessment and Recs; # Left breast mass with soft borders on exam, requires conservator for bx --> ct chest 2 cm left breast mass, concerning for neoplasm particularly given. Stated clinical findings Left axillary adenopathy is likely metastatic --> reviewed clinical exam, still needs to have a mammo done --> excisional biopsy v us guided biopsy (meed consent) --> seen by surg, needs consent, have called them and jose RN # Thrombocytopenia new onset --> obtain plt count, trend as needed, hep and hiv, us abd prn --> plt 175-->145k --> cbc re-ordered --> abx reviewed # Failure to thrive (FTT) - decreased bmi and low protein --> have ordered for cea level --> will obtain q3 day caloric counts --> may consider mirtazapine as appetite stimulant --> GI consult on a prn basis, as needed for endosc # Leukocytosis, mild --> 13-->13 --> r/o infection, abx as needed Zosyn # Dehydration --> ivf have been given --> bmp ordered # Confusion --> potentially dementia related --> psych eval prn --> has conservator # Dvt ppx lovenox sq The timing of this note does not necessarily reflect the time of the patient was seen. Greatly appreciate consultation. Subjective Constitutional: Denies: no symptoms, chills, fever, malaise, weakness, other HEENT: Denies: no symptoms, eye pain, blurred vision, tearing, double vision, ear pain, ear discharge, nose pain, nose congestion, throat pain, throat swelling, mouth pain, mouth swelling, other Respiratory: Denies: no symptoms, cough, shortness of breath, SOB with excertion, SOB at rest, sputum, wheezing, other Gastrointestinal/Abdominal: Denies: no symptoms, abdomen distended, abdominal pain, black stools, tarry stools, blood in stool, constipated, diarrhea, difficulty swallowing, nausea, poor appetite, poor fluid intake, rectal bleeding , vomiting, other Genitourinary: Denies: no symptoms, burning, discharge, frequency, flank pain, hematuria, incontinence, pain, urgency, other Neurologic/Psychiatric: Denies: no symptoms, anxiety, depressed, emotional problems, headache, numbness, paresthesia, pre-existing deficit, seizure, tingling, tremors, weakness, other Endocrine: Denies: no symptoms, excessive sweating, flushing, intolerance to cold, intolerance to heat, increased hunger, increased thirst, increased urine, unexplained weight gain, unexplained weight loss, other Allergies: Coded Allergies: No Known Allergies (Unverified , 03/05/19) Subjective 10.13: remains altered, seen by [facility], potential dc once improves ams 03/10: Jose rn, consent for scan was signed 03/11: requiring restartings, imaging reviewed from last night 03/12: no bleeding or chills noted, no major changes 03/13: no bleeding nor chills, is stable otherwise, no events 03/14: remains somewhat agitated, with ivf, no events Objective Objective Current Medications Medications (Trade) Dose Ordered Sig/León Route PRN Reason Start Time Stop Time Status Last Admin Dose Admin Acetaminophen (Tylenol) 650 mg Q4H PRN ORAL Mild Pain/Temp > 100.5 03/11/19 05:00 04/04/19 04:59 Albuterol/ Ipratropium (Albuterol/ Ipratropium) 3 ml Q4HRT HHN 03/11/19 07:00 03/16/19 06:59 03/14/19 11:11 Enoxaparin Sodium (Lovenox) 70 mg Q24H SUBQ 03/11/19 10:00 04/10/19 09:59 03/14/19 09:43 Haloperidol Lactate (Haldol) 5 mg Q6H PRN IM Agitation 03/11/19 15:30 04/10/19 15:29 Magnesium Hydroxide (Mom) 30 ml DAILYPRN PRN ORAL Constipation 03/11/19 05:00 04/04/19 04:59 Olanzapine (ZyPREXA) 5 mg TID ORAL 03/11/19 09:00 04/08/19 08:59 03/14/19 09:42 Pantoprazole (Protonix) 40 mg DAILY@0630 ORAL 03/11/19 06:30 04/05/19 06:29 03/14/19 06:44 Piperacillin Sod/ Tazobactam Sod 3.375 gm/Sodium Chloride 110 ml @ 27.5 mls/hr Q8H IVPB 03/11/19 09:00 03/18/19 08:59 03/14/19 09:42 Sodium Chloride 1,000 ml @ 100 mls/hr Q10H IV 03/11/19 06:15 04/10/19 06:14 03/14/19 03:15 Last 24 Hour Vital Signs Date Time Temp Pulse Resp B/P (MAP) Pulse Ox O2 Delivery O2 Flow Rate FiO2 03/14/19 08:00 97.9 104 20 140/77 (98) 93 03/14/19 08:00 Venturi Mask 03/14/19 07:40 110 03/14/19 07:05 85 16 98 Non-Rebreather 15.0 100 88 18 97 03/14/19 04:00 98.1 101 24 145/74 (97) 99 03/14/19 04:00 15.0 03/14/19 03:57 110 03/14/19 03:48 94 22 97 Non-Rebreather 15.0 100 93 20 94 03/14/19 01:07 15.0 03/14/19 00:00 Non-Rebreather 03/14/19 00:00 98.2 102 24 146/89 (108) 98 03/13/19 23:43 108 03/13/19 22:35 101 22 97 Nasal Cannula 3.0 32 102 20 97 03/13/19 20:09 98.7 108 22 118/69 (85) 95 03/13/19 20:00 Non-Rebreather 03/13/19 20:00 98.5 108 20 118/69 (85) 95 03/13/19 20:00 2.0 03/13/19 19:24 111 03/13/19 19:01 100 22 95 Nasal Cannula 3.0 32 99 22 96 03/13/19 16:00 98.0 100 21 145/82 (103) 95 03/13/19 16:00 99 03/13/19 15:29 101 20 99 Nasal Cannula 3.0 32 98 22 98 03/13/19 12:00 97.7 100 19 140/80 (100) 100 03/13/19 12:00 101 03/13/19 11:21 85 16 98 Nasal Cannula 3.0 32 88 18 97 03/13/19 09:00 Non-Rebreather 03/13/19 08:00 98.2 95 17 148/78 (101) 97 03/13/19 08:00 101 03/13/19 07:09 92 16 99 Venturi Mask 6.0 35 84 16 98 03/13/19 04:00 86 03/13/19 04:00 98.8 99 18 136/73 (94) 99 03/13/19 03:27 90 18 98 Venturi Mask 6.0 35 87 18 97 03/13/19 00:00 89 03/13/19 00:00 97.9 82 23 150/90 (110) 97 03/12/19 23:20 90 18 98 Venturi Mask 6.0 35 90 18 96 03/12/19 21:00 Non-Rebreather 03/12/19 20:00 86 03/12/19 20:00 98.6 92 24 146/78 (100) 96 03/12/19 19:39 89 18 99 Venturi Mask 6.0 35 87 18 97 03/12/19 16:00 98.6 94 19 139/67 (91) 97 03/12/19 15:38 99 03/12/19 15:00 88 20 98 Venturi Mask 6.0 35 85 18 97 03/12/19 12:00 97.9 84 16 126/58 (80) 95 Intake and Output 03/13/19 03/14/19 19:00 07:00 Intake Total 682.5 ml 1295.0 ml Output Total 600 ml Balance 82.5 ml 1295.0 ml IV Total 682.5 ml 1295.0 ml Output Urine Total 600 ml # Voids 2 # Bowel Movements 1 Labs Test 03/12/19 03:45 03/12/19 11:05 03/12/19 12:36 03/14/19 03:15 White Blood Count 9.2 K/UL (4.8-10.8) 7.7 K/UL (4.8-10.8) Red Blood Count 4.32 M/UL (4.20-5.40) 4.32 M/UL (4.20-5.40) Hemoglobin 12.9 G/DL (12.0-16.0) 12.8 G/DL (12.0-16.0) Hematocrit 39.1 % (37.0-47.0) 38.3 % (37.0-47.0) Mean Corpuscular Volume 91 FL (80-99) 89 FL (80-99) Mean Corpuscular Hemoglobin 29.8 PG (27.0-31.0) 29.7 PG (27.0-31.0) Mean Corpuscular Hemoglobin Concent 33.0 G/DL (32.0-36.0) 33.5 G/DL (32.0-36.0) Red Cell Distribution Width 12.3 % (11.6-14.8) 11.7 % (11.6-14.8) Platelet Count 145 K/UL (150-450) 177 K/UL (150-450) Mean Platelet Volume 8.1 FL (6.5-10.1) 6.9 FL (6.5-10.1) Neutrophils (%) (Auto) 79.3 % (45.0-75.0) 79.1 % (45.0-75.0) Lymphocytes (%) (Auto) 10.3 % (20.0-45.0) 12.1 % (20.0-45.0) Monocytes (%) (Auto) 9.3 % (1.0-10.0) 7.7 % (1.0-10.0) Eosinophils (%) (Auto) 0.7 % (0.0-3.0) 0.9 % (0.0-3.0) Basophils (%) (Auto) 0.4 % (0.0-2.0) 0.3 % (0.0-2.0) HIV (1&2) Antibody Rapid Negative (NEGATIVE) Hepatitis A IgM Antibody Negative (Negative) Hepatitis B Surface Antigen Negative (Negative) Hepatitis B Core IgM Antibody Negative (Negative) Hepatitis C Antibody 0.1 s/co ratio (0.0-0.9) Arterial Blood pH 7.407 (7.350-7.450) Arterial Blood Partial Pressure CO2 36.4 mmHg (35.0-45.0) Arterial Blood Partial Pressure O2 64.4 mmHg (75.0-100.0) Arterial Blood HCO3 22.4 mmol/L (22.0-26.0) Arterial Blood Oxygen Saturation 93.0 % (95-100) Arterial Blood Base Excess -1.8 (-2-2) Dagoberto Test Positive Sodium Level 140 MMOL/L (136-145) Potassium Level 3.2 MMOL/L (3.5-5.1) Chloride Level 105 MMOL/L (98-107) Carbon Dioxide Level 23 MMOL/L (21-32) Anion Gap 12 mmol/L (5-15) Blood Urea Nitrogen 12 mg/dL (7-18) Creatinine 0.8 MG/DL (0.55-1.30) Estimat Glomerular Filtration Rate mL/min (>60) Glucose Level 90 MG/DL (74-106) Calcium Level 9.2 MG/DL (8.5-10.1) Total Bilirubin 1.0 MG/DL (0.2-1.0) Aspartate Amino Transf (AST/SGOT) 28 U/L (15-37) Alanine Aminotransferase (ALT/SGPT) 19 U/L (12-78) Alkaline Phosphatase 63 U/L (46-116) Total Protein 6.8 G/DL (6.4-8.2) Albumin 2.4 G/DL (3.4-5.0) Globulin 4.4 g/dL Albumin/Globulin Ratio 0.5 (1.0-2.7) Height (Feet): 5 Height (Inches): 8.00 Weight (Pounds): 144 Objective Vitals: reviewed General Appearance: NAD HEENT: normocephalic, atraumatic Neck: non-tender, normal alignment Breast: left breast with 1-2 cm mass, mobile, difficult to access borders Respiratory/Chest: normal breath sounds b/l Cardiovascular/Chest: normal peripheral pulses, normal rate Abdomen: normal bowel sounds, soft, nontender Extremities: normal range of motion Josué Viera MD Mar 14, 2019 11:49
[2019-03-14 12:00] VITALS: BP 139/77
--- NOTE | 2019-03-14 13:00 | NUR ---
NURSE NOTES: Bilateral soft wrist restraints remain applied for patient safety; extremities checked for CMS which remain intact. Skin remains intact. Patient denies pain. Bed remains in lowest position, safety wheels engaged, call light within reach and bed alarm activated on zone 2.
--- NOTE | 2019-03-14 14:00 | NUR ---
NURSE NOTES: Bilateral soft wrist restraints remain applied for patient safety; extremities checked for CMS which remain intact. Skin remains intact. Patient denies pain. Bed remains in lowest position, safety wheels engaged, call light within reach and bed alarm activated on zone 2. Will continue to monitor. IV catheter dressing changed; patient rubbing hand despite restraints being present. IV catheter assessed for patency; remains intact, patent and asymptomatic. Protected with tegaderm and gauze applied to hand. Will continue to monitor. Will continue to reorient patient. Patient's pulse ox reads at 78% patient experiences visual/auditory hallucination and is visibly upset and yelling. Patient reoriented, coached with deep breathing exercises and saturation returns to 91% RT consulted. Will continue to monitor.
--- NOTE | 2019-03-14 15:00 | NUR ---
NURSE NOTES: Patient provided with bed bath and partial linen change. Patient tolerated care well and continues to sat between 88-90% Bilateral soft wrist restraints remain applied for patient safety; extremities checked for CMS which remain intact. Skin remains intact. Patient denies pain. Bed remains in lowest position, safety wheels engaged, call light within reach and bed alarm activated on zone 2.
[2019-03-14 16:00] VITALS: BP 121/70
--- NOTE | 2019-03-14 16:00 | NUR ---
Bilateral soft wrist restraints remain applied for patient safety; extremities checked for CMS which remain intact. Skin remains intact. Patient denies pain. Repositioned patient, patient continues to reposition herself supine. Bed remains in lowest position, safety wheels engaged, call light within reach and bed alarm activated on zone 2. Addendum: 03/14/19 at 1811 by ALBA WINSLOW RN NURSE NOTES: Patient provided with bed bath and partial linen change. Patient tolerated care well and continues to sat between 88-90% Bilateral soft wrist restraints remain applied for patient safety; extremities checked for CMS which remain intact. Skin remains intact. Patient denies pain. Bed remains in lowest position, safety wheels engaged, call light within reach and bed alarm activated on zone 2.
--- NOTE | 2019-03-14 16:45 | Progress Note ---
DATE: 03/14/2019 SUBJECTIVE: The patient is in bed, having episodes of agitation. The patient remained is bilateral soft restraint. The patient is disoriented, confused, not able to provide any history. MENTAL STATUS EXAMINATION: Alert and disoriented. Mood is neutral to anxious. Affect is flat. Thought process is concrete. Thought content, no suicidal or homicidal ideation. ASSESSMENT: Stable. PLAN: We will continue current medications. Owen Higgins M.D. DR: Colt JOB#: [id number] CC:
--- NOTE | 2019-03-14 18:08 | NUR ---
NURSE NOTES: Patient provided with bed bath and partial linen change. Patient tolerated care well and continues to sat between 89-92% Bilateral soft wrist restraints remain applied for patient safety; extremities checked for CMS which remain intact. Skin remains intact. Patient denies pain. L Hand IV catheter remains patent and intact. Bed remains in lowest position, safety wheels engaged, call light within reach and bed alarm activated on zone 2.
--- NOTE | 2019-03-14 19:07 | NUR ---
HAND-OFF: Report given to LAZARO rGay. No signs or symptoms of cardiac or respiratory distress. Patient resting in bed. Bes in lowest position, safety wheels engaged, call light within reach and bed alarm activated.
--- NOTE | 2019-03-14 19:35 | NUR ---
NURSE NOTES: Received report from Lilia Borges, and LAZARO Dasilva, pt. in bed awake- A/O x'1- to name, no signs or symptoms of acute cardiac or respiratory distress noted, bed in lowest position and call light within easy reach, side rails up x's 3 and safety brakes engaged, pt. appears to be sating well on Venturi mask fio2 at 40%- no distress noted, pt. appears to be resting comfortably- and appears to be clean and dry, LT. Hand 22G running 1/2 NS at 100cc/hr- IV intact and patent, safety measures continued, will continue with plan of care. Addendum: 03/14/19 at 2001 by GEOVANNI VALLADARES RN RN pt. has bilateral soft wrist restraints- both removed- skin intact and bilateral pulses palpable.
[2019-03-14 20:00] VITALS: BP 149/81
--- NOTE | 2019-03-14 23:08 | General Progress Note ---
Assessment/Plan Problem List: (1) Failure to thrive in adult ICD Codes: R62.7 - Failure to thrive in adult SNOMED: 599581621 Qualifiers: Qualified Codes: R62.7 - Adult failure to thrive (2) Hypertension ICD Codes: I10 - Essential (primary) hypertension SNOMED: 18312264 (3) Chronic obstructive pulmonary disease (COPD) ICD Codes: J44.9 - Chronic obstructive pulmonary disease, unspecified SNOMED: 23516064 (4) Schizo affective schizophrenia ICD Codes: F25.0 - Schizoaffective disorder, bipolar type SNOMED: 853788475 (5) Dementia ICD Codes: F03.90 - Unspecified dementia without behavioral disturbance SNOMED: 22757801 (6) Breast cancer ICD Codes: C50.919 - Malignant neoplasm of unspecified site of unspecified female breast SNOMED: 930781699 Status: stable, progressing, deteriorating, other - Very aggitated Status Narrative She is improving slowly. She is not eating well. Refused her food. O2 being weaned. Couldn't tolerate NC o2 sat in 70's Assessment/Plan: She will be discharged and she will have US guided bx of mammogram as outpatient. Following that surgical evaluation. patient is agitated and being evaluated by psychiatry. Will discharge when neuro status improves Subjective Date patient seen: Mar 14, 2019 ROS Limited/Unobtainable: No Constitutional: Reports: no symptoms, weakness HEENT: Reports: no symptoms Cardiovascular: Reports: no symptoms Respiratory: Reports: no symptoms Gastrointestinal/Abdominal: Reports: no symptoms Genitourinary: Reports: no symptoms Neurologic/Psychiatric: Reports: no symptoms Endocrine: Reports: no symptoms Hematologic/Lymphatic: Reports: no symptoms Allergies: Coded Allergies: No Known Allergies (Unverified , 03/05/19) Objective Last 24 Hour Vital Signs Date Time Temp Pulse Resp B/P (MAP) Pulse Ox O2 Delivery O2 Flow Rate FiO2 03/14/19 20:00 98.8 95 24 149/81 (103) 94 03/14/19 20:00 Venturi Mask 03/14/19 19:43 94 03/14/19 19:06 93 22 98 Venturi Mask 8.0 40 91 22 96 03/14/19 16:00 Venturi Mask 03/14/19 16:00 97.7 109 20 121/70 (87) 93 03/14/19 15:55 103 03/14/19 14:44 100 24 96 Venturi Mask 8.0 40 94 24 23 03/14/19 12:00 Venturi Mask 03/14/19 12:00 98.1 96 20 139/77 (97) 93 03/14/19 11:40 108 03/14/19 11:20 94 22 97 Non-Rebreather 15.0 100 89 20 94 03/14/19 08:00 97.9 104 20 140/77 (98) 93 03/14/19 08:00 Venturi Mask 03/14/19 07:40 110 03/14/19 07:05 85 16 98 Non-Rebreather 15.0 100 88 18 97 03/14/19 04:00 98.1 101 24 145/74 (97) 99 03/14/19 04:00 Non-Rebreather 03/14/19 04:00 15.0 03/14/19 03:57 110 03/14/19 03:48 94 22 97 Non-Rebreather 15.0 100 93 20 94 03/14/19 01:07 15.0 03/14/19 00:00 Non-Rebreather 03/14/19 00:00 98.2 102 24 146/89 (108) 98 03/13/19 23:43 108 Intake and Output 03/13/19 03/14/19 19:00 07:00 Intake Total 682.5 ml 1295.0 ml Output Total 600 ml Balance 82.5 ml 1295.0 ml IV Total 682.5 ml 1295.0 ml Output Urine Total 600 ml # Voids 2 # Bowel Movements 1 Laboratory Tests 03/14/19 03:15: White Blood Count 7.7, Red Blood Count 4.32, Hemoglobin 12.8, Hematocrit 38.3, Mean Corpuscular Volume 89, Mean Corpuscular Hemoglobin 29.7, Mean Corpuscular Hemoglobin Concent 33.5, Red Cell Distribution Width 11.7, Platelet Count 177, Mean Platelet Volume 6.9, Neutrophils (%) (Auto) 79.1H, Lymphocytes (%) (Auto) 12.1L, Monocytes (%) (Auto) 7.7, Eosinophils (%) (Auto) 0.9, Basophils (%) (Auto ) 0.3, Sodium Level 140, Potassium Level 3.2L, Chloride Level 105, Carbon Dioxide Level 23, Anion Gap 12, Blood Urea Nitrogen 12, Creatinine 0.8, Estimat Glomerular Filtration Rate , Glucose Level 90, Calcium Level 9.2, Total Bilirubin 1.0, Aspartate Amino Transf (AST/SGOT) 28, Alanine Aminotransferase ( ALT/SGPT) 19, Alkaline Phosphatase 63, Total Protein 6.8, Albumin 2.4L, Globulin 4.4, Albumin/Globulin Ratio 0.5L Height (Feet): 5 Height (Inches): 8.00 Weight (Pounds): 144 General Appearance: no apparent distress EENT: PERRL/EOMI Neck: non-tender Cardiovascular: normal peripheral pulses, normal rate, regular rhythm Respiratory/Chest: chest wall non-tender, lungs clear Abdomen: normal bowel sounds, non tender, soft, no organomegaly Extremities: normal range of motion Edema: no edema noted Arm (L), no edema noted Arm (R), no edema noted Leg (L), no edema noted Leg (R), no edema noted Pedal (L), no edema noted Pedal (R), no edema noted Generalized Edema: trace edema Neurologic: vice president process II-XII grossly normal, no motor/sensory deficits, alert Skin: normal pigmentation Jose Francisco Winters MD Mar 14, 2019 23:08
--- NOTE | 2019-03-14 23:21 | NUR ---
NURSE NOTES: per DR. Stoner to d/c 1/2 NS and put order for D5 1/2 NS +20KCL at 80cc/hr.
--- NOTE | 2019-03-14 23:33 | NUR ---
NURSE NOTES: notified Roseline at [facility] (formerly [facility]) regarding KCL 20meq IVPB - that doctor was trying to orders 40meq of potassium via IVPB- per Roseline she will edit the order.
[2019-03-15] VITALS: BP 146/84
[2019-03-15] MEDS: D5 1/2NS w/KCl 20mEq 1,000 ML IV SCH ×3 (00:10→23:48)
[2019-03-15] MEDS: Albuterol/Ipratropium 3ml neb HHN SCH ×6 (03:07→23:26)
[2019-03-15 04:00] VITALS: BP 143/69
[2019-03-15] MEDS: Piperacillin/Tazobactam 3.375 GM in NS 110 ML IVPB SCH ×3 (05:11→20:17)
[2019-03-15 07:18] LABS: BASOPHILS % (AUTO) 0.8 % (0.0-2.0); EOSINOPHILS % (AUTO) 4.8 % (0.0-3.0); HEMATOCRIT 36.3 % (37.0-47.0); HEMOGLOBIN 11.9 G/DL (12.0-16.0); LYMPHOCYTES % (AUTO) 12.7 % (20.0-45.0); MEAN CORPUSCULAR VOLUME 88 FL (80-99); MONOCYTES % (AUTO) 10.6 % (1.0-10.0); NEUTROPHILS % (AUTO) 71.1 % (45.0-75.0); PLATELET COUNT 180 K/UL (150-450); RED CELL DISTRIBUTION WIDTH 11.8 % (11.6-14.8); WHITE BLOOD COUNT 7.7 K/UL (4.8-10.8)
--- NOTE | 2019-03-15 07:23 | NUR ---
HAND-OFF: Report given to Lilia Rn, pt. remains stable and no signs of distress noted. Nurse aware to f/u on am labs.
--- NOTE | 2019-03-15 07:24 | NUR ---
NURSE NOTES: Received patient in bed. Awake, restless, with bilateral soft wrist restraints. On venturi mask with Fio2 of 40. No respiratory distress at this time, Oxygen saturation of 92 noted in portable machine next to beside. Bed alarm on, uri in lowest position. Call light within reach. IVF running per MD's order. Will continue plan of care.
[2019-03-15 07:42] LABS: ALANINE AMINOTRANSFERASE 24 U/L (12-78); ALBUMIN 2.3 G/DL (3.4-5.0); ALBUMIN/GLOBULIN RATIO 0.6 (1.0-2.7); ALKALINE PHOSPHATASE 53 U/L (46-116); ANION GAP 10 mmol/L (5-15); ASPARTATE AMINO TRANSFERASE 31 U/L (15-37); BILIRUBIN,TOTAL 0.7 MG/DL (0.2-1.0); BLOOD UREA NITROGEN 10 mg/dL (7-18); CALCIUM 9.3 MG/DL (8.5-10.1); CARBON DIOXIDE 25 MMOL/L (21-32); CHLORIDE 108 MMOL/L (98-107); CREATININE 0.8 MG/DL (0.55-1.30); POTASSIUM 3.8 MMOL/L (3.5-5.1); SODIUM 143 MMOL/L (136-145)
[2019-03-15 08:00] VITALS: BP 153/87
[2019-03-15] MEDS: Enoxaparin Sodium 300mg/3ml vial SUBQ SCH (09:22)
[2019-03-15 12:00] VITALS: BP 143/62
--- NOTE | 2019-03-15 12:49 | Hematology/Onc Progress Note ---
Assessment/Plan Assessment/Plan Assessment and Recs; # Left breast mass with soft borders on exam, requires conservator for bx --> ct chest 2 cm left breast mass, concerning for neoplasm particularly given. Stated clinical findings Left axillary adenopathy is likely metastatic --> reviewed clinical exam, still needs to have a mammo done --> excisional biopsy v us guided biopsy (meed consent) --> seen by surg, needs consent, have called them and balaji RN # Thrombocytopenia new onset --> obtain plt count, trend as needed, hep and hiv, us abd prn --> plt 175-->145k-->180k --> cbc re-ordered --> abx reviewed # Failure to thrive (FTT) - decreased bmi and low protein --> have ordered for cea level --> will obtain q3 day caloric counts --> may consider mirtazapine as appetite stimulant --> GI consult on a prn basis, as needed for endosc # Anemia of chronic disease --> may be due to hemodilution as well --> trend hgb 13-->11.9 # Leukocytosis, mild --> 13-->13-->7 --> r/o infection, abx as needed Zosyn # Dehydration --> ivf have been given --> bmp ordered # Confusion --> potentially dementia related --> psych eval prn --> has conservator # Dvt ppx lovenox sq The timing of this note does not necessarily reflect the time of the patient was seen. Greatly appreciate consultation. Subjective Neurologic/Psychiatric: Denies: no symptoms, anxiety, depressed, emotional problems, headache, numbness, paresthesia, pre-existing deficit, seizure, tingling, tremors, weakness, other Endocrine: Denies: no symptoms, excessive sweating, flushing, intolerance to cold, intolerance to heat, increased hunger, increased thirst, increased urine, unexplained weight gain, unexplained weight loss, other Allergies: Coded Allergies: No Known Allergies (Unverified , 03/05/19) Subjective 03.09: remains altered, seen by [facility], potential dc once improves ams 03/10: Balaji rizo, consent for scan was signed 03/11: requiring restartings, imaging reviewed from last night 03/12: no bleeding or chills noted, no major changes 03/13: no bleeding nor chills, is stable otherwise, no events 03/14: remains somewhat agitated, with ivf, no events 03/15: remains agitated, seen by psych, no f/c Objective Objective Current Medications Medications (Trade) Dose Ordered Sig/León Route PRN Reason Start Time Stop Time Status Last Admin Dose Admin Acetaminophen (Tylenol) 650 mg Q4H PRN ORAL Mild Pain/Temp > 100.5 03/11/19 05:00 04/04/19 04:59 Albuterol/ Ipratropium (Albuterol/ Ipratropium) 3 ml Q4HRT HHN 03/15/19 11:00 03/20/19 06:59 03/15/19 10:47 Dextrose/ Electrolytes 1,000 ml @ 80 mls/hr [id number] IV 03/14/19 23:15 04/13/19 23:14 03/15/19 00:10 Enoxaparin Sodium (Lovenox) 70 mg Q24H SUBQ 03/11/19 10:00 04/10/19 09:59 03/15/19 09:22 Haloperidol Lactate (Haldol) 5 mg Q6H PRN IM Agitation 03/11/19 15:30 04/10/19 15:29 Magnesium Hydroxide (Mom) 30 ml DAILYPRN PRN ORAL Constipation 03/11/19 05:00 04/04/19 04:59 Olanzapine (ZyPREXA) 5 mg TID ORAL 03/11/19 09:00 04/08/19 08:59 03/15/19 09:17 Pantoprazole (Protonix) 40 mg DAILY@0630 ORAL 03/11/19 06:30 04/05/19 06:29 03/15/19 05:43 Piperacillin Sod/ Tazobactam Sod 3.375 gm/Sodium Chloride 110 ml @ 27.5 mls/hr Q8H IVPB 03/11/19 09:00 03/18/19 08:59 03/15/19 05:11 Last 24 Hour Vital Signs Date Time Temp Pulse Resp B/P (MAP) Pulse Ox O2 Delivery O2 Flow Rate FiO2 03/15/19 12:00 97.8 108 20 143/62 (89) 96 03/15/19 12:00 Venturi Mask 03/15/19 11:23 112 03/15/19 10:45 94 20 99 Venturi Mask 8.0 40 96 20 97 03/15/19 08:03 90 20 98 Venturi Mask 8.0 40 91 20 94 03/15/19 08:00 98.5 91 18 153/87 (109) 94 03/15/19 08:00 Venturi Mask 03/15/19 07:38 91 03/15/19 04:00 98.5 91 24 143/69 (93) 94 03/15/19 04:00 Venturi Mask 03/15/19 03:34 95 03/15/19 03:07 82 20 98 Venturi Mask 8.0 40 80 20 95 03/15/19 00:00 Venturi Mask 03/15/19 00:00 99.0 98 24 146/84 (104) 97 03/15/19 00:00 40 03/15/19 00:00 94 03/14/19 23:20 99 22 99 Venturi Mask 8.0 40 99 22 95 03/14/19 20:00 98.8 95 24 149/81 (103) 94 03/14/19 20:00 40 03/14/19 20:00 Venturi Mask 03/14/19 19:43 94 03/14/19 19:06 93 22 98 Venturi Mask 8.0 40 91 22 96 03/14/19 16:00 Venturi Mask 03/14/19 16:00 97.7 109 20 121/70 (87) 93 03/14/19 15:55 103 03/14/19 14:44 100 24 96 Venturi Mask 8.0 40 94 24 23 03/14/19 12:00 Venturi Mask 03/14/19 12:00 98.1 96 20 139/77 (97) 93 03/14/19 11:40 108 03/14/19 11:20 94 22 97 Non-Rebreather 15.0 100 89 20 94 03/14/19 08:00 97.9 104 20 140/77 (98) 93 03/14/19 08:00 Venturi Mask 03/14/19 07:40 110 03/14/19 07:05 85 16 98 Non-Rebreather 15.0 100 88 18 97 03/14/19 04:00 98.1 101 24 145/74 (97) 99 03/14/19 04:00 Non-Rebreather 03/14/19 04:00 15.0 03/14/19 03:57 110 03/14/19 03:48 94 22 97 Non-Rebreather 15.0 100 93 20 94 03/14/19 01:07 15.0 03/14/19 00:00 Non-Rebreather 03/14/19 00:00 98.2 102 24 146/89 (108) 98 03/13/19 23:43 108 03/13/19 22:35 101 22 97 Nasal Cannula 3.0 32 102 20 97 03/13/19 20:09 98.7 108 22 118/69 (85) 95 03/13/19 20:00 Non-Rebreather 03/13/19 20:00 98.5 108 20 118/69 (85) 95 03/13/19 20:00 2.0 03/13/19 19:24 111 03/13/19 19:01 100 22 95 Nasal Cannula 3.0 32 99 22 96 03/13/19 16:00 98.0 100 21 145/82 (103) 95 03/13/19 16:00 99 03/13/19 15:29 101 20 99 Nasal Cannula 3.0 32 98 22 98 Intake and Output 03/14/19 03/15/19 19:00 07:00 Intake Total 1265.0 ml 918.5 ml Balance 1265.0 ml 918.5 ml Intake Oral 30 ml IV Total 1235.0 ml 918.5 ml # Voids 4 3 Labs Test 03/14/19 03:15 03/15/19 07:10 White Blood Count 7.7 K/UL (4.8-10.8) 7.7 K/UL (4.8-10.8) Red Blood Count 4.32 M/UL (4.20-5.40) 4.10 M/UL (4.20-5.40) Hemoglobin 12.8 G/DL (12.0-16.0) 11.9 G/DL (12.0-16.0) Hematocrit 38.3 % (37.0-47.0) 36.3 % (37.0-47.0) Mean Corpuscular Volume 89 FL (80-99) 88 FL (80-99) Mean Corpuscular Hemoglobin 29.7 PG (27.0-31.0) 29.1 PG (27.0-31.0) Mean Corpuscular Hemoglobin Concent 33.5 G/DL (32.0-36.0) 32.9 G/DL (32.0-36.0) Red Cell Distribution Width 11.7 % (11.6-14.8) 11.8 % (11.6-14.8) Platelet Count 177 K/UL (150-450) 180 K/UL (150-450) Mean Platelet Volume 6.9 FL (6.5-10.1) 6.7 FL (6.5-10.1) Neutrophils (%) (Auto) 79.1 % (45.0-75.0) 71.1 % (45.0-75.0) Lymphocytes (%) (Auto) 12.1 % (20.0-45.0) 12.7 % (20.0-45.0) Monocytes (%) (Auto) 7.7 % (1.0-10.0) 10.6 % (1.0-10.0) Eosinophils (%) (Auto) 0.9 % (0.0-3.0) 4.8 % (0.0-3.0) Basophils (%) (Auto) 0.3 % (0.0-2.0) 0.8 % (0.0-2.0) Sodium Level 140 MMOL/L (136-145) 143 MMOL/L (136-145) Potassium Level 3.2 MMOL/L (3.5-5.1) 3.8 MMOL/L (3.5-5.1) Chloride Level 105 MMOL/L (98-107) 108 MMOL/L (98-107) Carbon Dioxide Level 23 MMOL/L (21-32) 25 MMOL/L (21-32) Anion Gap 12 mmol/L (5-15) 10 mmol/L (5-15) Blood Urea Nitrogen 12 mg/dL (7-18) 10 mg/dL (7-18) Creatinine 0.8 MG/DL (0.55-1.30) 0.8 MG/DL (0.55-1.30) Estimat Glomerular Filtration Rate mL/min (>60) mL/min (>60) Glucose Level 90 MG/DL (74-106) 92 MG/DL (74-106) Calcium Level 9.2 MG/DL (8.5-10.1) 9.3 MG/DL (8.5-10.1) Total Bilirubin 1.0 MG/DL (0.2-1.0) 0.7 MG/DL (0.2-1.0) Aspartate Amino Transf (AST/SGOT) 28 U/L (15-37) 31 U/L (15-37) Alanine Aminotransferase (ALT/SGPT) 19 U/L (12-78) 24 U/L (12-78) Alkaline Phosphatase 63 U/L (46-116) 53 U/L (46-116) Total Protein 6.8 G/DL (6.4-8.2) 6.4 G/DL (6.4-8.2) Albumin 2.4 G/DL (3.4-5.0) 2.3 G/DL (3.4-5.0) Globulin 4.4 g/dL 4.1 g/dL Albumin/Globulin Ratio 0.5 (1.0-2.7) 0.6 (1.0-2.7) Height (Feet): 5 Height (Inches): 8.00 Weight (Pounds): 144 Objective Vitals: reviewed General Appearance: NAD HEENT: normocephalic, atraumatic Neck: non-tender, normal alignment Breast: left breast with 1-2 cm mass, mobile, difficult to access borders Respiratory/Chest: normal breath sounds b/l Cardiovascular/Chest: normal peripheral pulses, normal rate Abdomen: normal bowel sounds, soft, nontender Extremities: normal range of motion Josué Viera MD Mar 15, 2019 12:49
--- NOTE | 2019-03-15 14:00 | NUR ---
NURSE NOTES: Bedbath provided by 2 staff.
[2019-03-15] MEDS ORDERED: NS 275ml ONE ×2 (15:23→16:18)
[2019-03-15] MEDS ORDERED: Tubing IV Secondary IV ONE ×2 (15:23→16:18)
[2019-03-15 16:00] VITALS: BP 135/79
[2019-03-15] MEDS ORDERED: 1/2 NS 1000ml IV ONE (16:18)
--- NOTE | 2019-03-15 17:00 | NUR ---
NURSE NOTES: Venturi mask titrated to 35% from 40%. Patient tolerating oxygen therapy with oxygen saturation of 96%.
--- NOTE | 2019-03-15 19:10 | NUR ---
NURSE NOTES: Received report from Lilia Rn, pt. in bed awake- A/O x'1- to name, no signs or symptoms of acute cardiac or respiratory distress noted, bed in lowest position and call light within easy reach, side rails up x's 3 and safety brakes engaged, pt. appears to be sating well on Venturi mask fio2 at 35%- no distress noted, pt. appears to be resting comfortably- and appears to be clean and dry, pt. has bilateral wrist restraints- both removed skin intact and bilateral pulses palpable, LT. Hand 22G running D5 1/2 NS +20kcl running at 80cc/hr- IV intact and patent, safety measures continued, will continue with plan of care.
--- NOTE | 2019-03-15 19:10 | NUR ---
HAND-OFF: Report given to Marina Cobos RN.
--- NOTE | 2019-03-15 19:39 | NUR ---
NURSE NOTES: Dr. Josué Viera ordered 30mg sq qd dvt ppx dose. Informed Russ/Pharmacist.
[2019-03-15 20:00] VITALS: BP 134/73
--- NOTE | 2019-03-15 23:14 | General Progress Note ---
Assessment/Plan Problem List: (1) Failure to thrive in adult ICD Codes: R62.7 - Failure to thrive in adult SNOMED: 986486245 Qualifiers: Qualified Codes: R62.7 - Adult failure to thrive (2) Hypertension ICD Codes: I10 - Essential (primary) hypertension SNOMED: 51653269 (3) Chronic obstructive pulmonary disease (COPD) ICD Codes: J44.9 - Chronic obstructive pulmonary disease, unspecified SNOMED: 48240184 (4) Schizo affective schizophrenia ICD Codes: F25.0 - Schizoaffective disorder, bipolar type SNOMED: 443548710 (5) Dementia ICD Codes: F03.90 - Unspecified dementia without behavioral disturbance SNOMED: 45908200 (6) Breast cancer ICD Codes: C50.919 - Malignant neoplasm of unspecified site of unspecified female breast SNOMED: 639175596 Status: stable, progressing, other - Very aggitated Status Narrative Her aspiration pneumonia is improving. Oxygenation is better and she is being changed to nasal canula as she improves. Assessment/Plan: She will be discharged and she will have US guided bx of mammogram as outpatient. Following that surgical evaluation. patient is agitated and being evaluated by psychiatry. Will discharge when neuro status improves Subjective Date patient seen: Mar 15, 2019 ROS Limited/Unobtainable: Yes Constitutional: Reports: weakness HEENT: Reports: no symptoms Cardiovascular: Reports: no symptoms Respiratory: Reports: shortness of breath Gastrointestinal/Abdominal: Reports: no symptoms Genitourinary: Reports: no symptoms Neurologic/Psychiatric: Reports: weakness, other - psyc, confusionhosis Endocrine: Reports: no symptoms Hematologic/Lymphatic: Reports: no symptoms Allergies: Coded Allergies: No Known Allergies (Unverified , 03/05/19) Objective Last 24 Hour Vital Signs Date Time Temp Pulse Resp B/P (MAP) Pulse Ox O2 Delivery O2 Flow Rate FiO2 03/15/19 20:06 88 18 98 Venturi Mask 6.0 35 03/15/19 20:00 97.9 85 18 134/73 (93) 98 03/15/19 20:00 Venturi Mask 03/15/19 19:55 98 Venturi Mask 6.0 35 03/15/19 19:55 84 18 98 Venturi Mask 6.0 35 03/15/19 19:33 80 03/15/19 16:00 93 03/15/19 16:00 98.1 86 18 135/79 (97) 99 03/15/19 16:00 Venturi Mask 03/15/19 15:10 85 20 99 Venturi Mask 6.0 35 87 20 98 03/15/19 12:00 97.8 108 20 143/62 (89) 96 03/15/19 12:00 Venturi Mask 03/15/19 11:23 112 03/15/19 10:45 94 20 99 Venturi Mask 8.0 40 96 20 97 03/15/19 08:03 97 Venturi Mask 8.0 40 03/15/19 08:03 90 20 98 Venturi Mask 8.0 40 91 20 94 03/15/19 08:00 98.5 91 18 153/87 (109) 94 03/15/19 08:00 Venturi Mask 03/15/19 07:38 91 03/15/19 04:00 98.5 91 24 143/69 (93) 94 03/15/19 04:00 Venturi Mask 03/15/19 03:34 95 03/15/19 03:07 82 20 98 Venturi Mask 8.0 40 80 20 95 03/15/19 00:00 Venturi Mask 03/15/19 00:00 99.0 98 24 146/84 (104) 97 03/15/19 00:00 40 03/15/19 00:00 94 03/14/19 23:20 99 22 99 Venturi Mask 8.0 40 99 22 95 Intake and Output 03/14/19 03/15/19 19:00 07:00 Intake Total 1265.0 ml 998.5 ml Balance 1265.0 ml 998.5 ml Intake Oral 30 ml IV Total 1235.0 ml 998.5 ml # Voids 4 3 Laboratory Tests 03/15/19 07:10: White Blood Count 7.7, Red Blood Count 4.10L, Hemoglobin 11.9L, Hematocrit 36.3L , Mean Corpuscular Volume 88, Mean Corpuscular Hemoglobin 29.1, Mean Corpuscular Hemoglobin Concent 32.9, Red Cell Distribution Width 11.8, Platelet Count 180, Mean Platelet Volume 6.7, Neutrophils (%) (Auto) 71.1, Lymphocytes (% ) (Auto) 12.7L, Monocytes (%) (Auto) 10.6H, Eosinophils (%) (Auto) 4.8H, Basophils (%) (Auto) 0.8, Sodium Level 143, Potassium Level 3.8, Chloride Level 108H, Carbon Dioxide Level 25, Anion Gap 10, Blood Urea Nitrogen 10, Creatinine 0.8, Estimat Glomerular Filtration Rate , Glucose Level 92, Calcium Level 9.3, Total Bilirubin 0.7, Aspartate Amino Transf (AST/SGOT) 31, Alanine Aminotransferase (ALT/SGPT) 24, Alkaline Phosphatase 53, Total Protein 6.4, Albumin 2.3L, Globulin 4.1, Albumin/Globulin Ratio 0.6L, Carcinoembryonic Antigen [Pending] Height (Feet): 5 Height (Inches): 8.00 Weight (Pounds): 144 Jose Francisco Winters MD Mar 15, 2019 23:14
[2019-03-16] VITALS: BP 139/81
[2019-03-16] MEDS: Albuterol/Ipratropium 3ml neb HHN SCH ×6 (03:38→23:21)
[2019-03-16 04:00] VITALS: BP_SYST 128; BP_SYST 133; BP_DIAS 69
[2019-03-16] MEDS: Piperacillin/Tazobactam 3.375 GM in NS 110 ML IVPB SCH ×3 (04:15→21:07)
[2019-03-16 05:18] LABS: BASOPHILS % (AUTO) 0.6 % (0.0-2.0); EOSINOPHILS % (AUTO) 5.7 % (0.0-3.0); HEMATOCRIT 37.7 % (37.0-47.0); HEMOGLOBIN 12.5 G/DL (12.0-16.0); LYMPHOCYTES % (AUTO) 11.3 % (20.0-45.0); MEAN CORPUSCULAR VOLUME 89 FL (80-99); MONOCYTES % (AUTO) 10.4 % (1.0-10.0); PLATELET COUNT 193 K/UL (150-450); RED BLOOD COUNT 4.24 M/UL (4.20-5.40); RED CELL DISTRIBUTION WIDTH 11.6 % (11.6-14.8); WHITE BLOOD COUNT 7.8 K/UL (4.8-10.8)
[2019-03-16 06:08] LABS: ANION GAP 10 mmol/L (5-15); BLOOD UREA NITROGEN 9 mg/dL (7-18); CALCIUM 9.4 MG/DL (8.5-10.1); CARBON DIOXIDE 26 MMOL/L (21-32); CHLORIDE 105 MMOL/L (98-107); CREATININE 0.8 MG/DL (0.55-1.30); PHOSPHORUS 3.2 MG/DL (2.5-4.9); POTASSIUM 3.7 MMOL/L (3.5-5.1); SODIUM 141 MMOL/L (136-145)
--- NOTE | 2019-03-16 07:09 | NUR ---
HAND-OFF: Report given to Phil RN, pt. remians stable and no signs of distress noted. Nurse aware to f/u on abnormal labs magnesium trending down.
--- NOTE | 2019-03-16 07:30 | NUR ---
NURSE NOTES: LATE ENTRY RECEIVED REPORT FROM GEOVANNI WILLIS. PT IN BED. SOFT SPOKEN, MUMBLING. RESPONSIVE TO SHAKING, PUPILS 3MM SLUGGISH. GAG FLEX PRESENT. TEMP 97.8. BP 144/76, HR 94. PUPILS 3MM SLUGGISH. PT ON VENTURI MASK AT 35%.SATING 94%. TITRATE TO KEEP SAT'S> 90%.RR 18. LUNG SOUNDS DIMINISHED BILATERAL LOWER LOBES. NON PRODUCTIVE COUGH. NO JVD, CAP REFILL <3SEC. ABDOMEN FLAT, SOFT. BOWEL SOUNDS HYPOACTIVE. NO BM NOTED. PT ON REGULAR PUREE DIET, CRUSH MEDICATIONS. PT INCONTINENT, YELLOW URINE. BILATERAL RADIAL AND PEDAL PULSES WEAK.TRACE EDEMA UPPER EXTREMITIES. IV: LT HAND 22G RUNNING D5 NS+20MEQ KCL AT80ML/HR. KERLIX WRAPPED, TO PREVENT PT FROM PULLING OUT IV. DRESSING DRY INTACT. SKIN- SEE ASSESSMENT. STANDARD PRECAUTIONS IN PLACE. BED LOCKED, ALARM ON, IN LOW POSITION AND SIDE RAILS X3. ZONE 2. CALL LIGHT IN REACH. WILL CONTINUE TO IMPLEMENT PLAN OF CARE.
--- NOTE | 2019-03-16 07:49 | NUR ---
NURSE NOTES: called MD Winters, regarding pt's mg 1.7. awaiting call back.
[2019-03-16 08:00] VITALS: BP 144/76
--- NOTE | 2019-03-16 08:34 | NUR ---
NURSE NOTES: received call back from MD Winters, received order for 5l nc w/ hundifer, abg 1 hr post. stat CXR 1 view, 2 gm ivpb magnesium sulfate, have d/c shutdown planner call him, no NGT placement at this time.
[2019-03-16] MEDS ORDERED: Enoxaparin 40mg Inj SUBQ SCH (09:00)
[2019-03-16] MEDS: Enoxaparin 30mg Inj SUBQ SCH (09:51)
--- NOTE | 2019-03-16 09:59 | Hematology/Onc Progress Note ---
Assessment/Plan Assessment/Plan Assessment and Recs; # Left breast mass with soft borders on exam, requires conservator for bx --> ct chest 2 cm left breast mass, concerning for neoplasm particularly given. Stated clinical findings Left axillary adenopathy is likely metastatic --> reviewed clinical exam, still needs to have a mammo done --> excisional biopsy v us guided biopsy (meed consent) --> seen by surg, needs consent, have called them and balaji RN # Failure to thrive (FTT) - decreased bmi and low protein --> have ordered for cea level --> will obtain q3 day caloric counts --> may consider mirtazapine as appetite stimulant --> GI consult on a prn basis, as needed for endosc # Thrombocytopenia new onset --> obtain plt count, trend as needed, hep and hiv, us abd prn --> plt 175-->145k-->180k-->193 --> cbc re-ordered --> abx reviewed # Anemia of chronic disease --> may be due to hemodilution as well --> trend hgb 13-->11.9 # Leukocytosis, mild --> 13-->13-->7 --> r/o infection, abx as needed Zosyn # Dehydration --> ivf have been given --> bmp ordered # Confusion --> potentially dementia related --> psych eval prn --> has conservator # Dvt ppx lovenox sq The timing of this note does not necessarily reflect the time of the patient was seen. Greatly appreciate consultation. Subjective Constitutional: Denies: no symptoms, chills, fever, malaise, weakness, other HEENT: Denies: no symptoms, eye pain, blurred vision, tearing, double vision, ear pain, ear discharge, nose pain, nose congestion, throat pain, throat swelling, mouth pain, mouth swelling, other Cardiovascular: Denies: no symptoms, chest pain, edema, irregular heart rate, lightheadedness, palpitations, syncope, other Respiratory: Denies: no symptoms, cough, shortness of breath, SOB with excertion, SOB at rest, sputum, wheezing, other Gastrointestinal/Abdominal: Denies: no symptoms, abdomen distended, abdominal pain, black stools, tarry stools, blood in stool, constipated, diarrhea, difficulty swallowing, nausea, poor appetite, poor fluid intake, rectal bleeding , vomiting, other Genitourinary: Denies: no symptoms, burning, discharge, frequency, flank pain, hematuria, incontinence, pain, urgency, other Neurologic/Psychiatric: Denies: no symptoms, anxiety, depressed, emotional problems, headache, numbness, paresthesia, pre-existing deficit, seizure, tingling, tremors, weakness, other Allergies: Coded Allergies: No Known Allergies (Unverified , 03/05/19) Subjective 10.: remains altered, seen by pscy, potential dc once improves ams 03/10: Balaji rn, consent for scan was signed 03/11: requiring restartings, imaging reviewed from last night 03/12: no bleeding or chills noted, no major changes 03/13: no bleeding nor chills, is stable otherwise, no events 03/14: remains somewhat agitated, with ivf, no events 03/15: remains agitated, seen by psych, no f/c 03/16: no events, with nc, no bleeding, is comfortable Objective Objective Current Medications Medications (Trade) Dose Ordered Sig/León Route PRN Reason Start Time Stop Time Status Last Admin Dose Admin Acetaminophen (Tylenol) 650 mg Q4H PRN ORAL Mild Pain/Temp > 100.5 03/11/19 05:00 04/04/19 04:59 Albuterol/ Ipratropium (Albuterol/ Ipratropium) 3 ml Q4HRT HHN 03/15/19 11:00 03/20/19 06:59 03/16/19 07:16 Dextrose/ Electrolytes 1,000 ml @ 80 mls/hr [id number] IV 03/14/19 23:15 04/13/19 23:14 03/15/19 23:48 Enoxaparin Sodium (Lovenox) 30 mg DAILY SUBQ 03/16/19 09:00 04/15/19 08:59 03/16/19 09:51 Haloperidol Lactate (Haldol) 5 mg Q6H PRN IM Agitation 03/11/19 15:30 04/10/19 15:29 03/15/19 21:18 Magnesium Hydroxide (Mom) 30 ml DAILYPRN PRN ORAL Constipation 03/11/19 05:00 04/04/19 04:59 Magnesium Sulfate 100 ml @ 100 mls/hr Q1H IVPB 03/16/19 09:00 03/16/19 10:59 03/16/19 09:49 Olanzapine (ZyPREXA) 5 mg TID ORAL 03/11/19 09:00 04/08/19 08:59 03/16/19 09:48 Pantoprazole (Protonix) 40 mg DAILY@0630 ORAL 03/11/19 06:30 04/05/19 06:29 03/16/19 05:37 Piperacillin Sod/ Tazobactam Sod 3.375 gm/Sodium Chloride 110 ml @ 27.5 mls/hr Q8H IVPB 03/11/19 09:00 03/18/19 08:59 03/16/19 04:15 Last 24 Hour Vital Signs Date Time Temp Pulse Resp B/P (MAP) Pulse Ox O2 Delivery O2 Flow Rate FiO2 03/16/19 08:00 97.8 94 20 144/76 (98) 94 03/16/19 07:12 87 20 99 Venturi Mask 6.0 35 86 20 96 03/16/19 07:11 96 Venturi Mask 6.0 35 03/16/19 04:00 Venturi Mask 03/16/19 04:00 98.0 76 18 133/69 (90) 99 03/16/19 03:43 85 20 99 Venturi Mask 6.0 35 03/16/19 03:38 84 03/16/19 03:33 86 20 97 Venturi Mask 6.0 35 03/16/19 01:07 35 03/16/19 00:00 Venturi Mask 03/16/19 00:00 98.1 78 18 139/81 (100) 98 03/15/19 23:40 91 03/15/19 23:23 86 18 97 Venturi Mask 6.0 35 03/15/19 23:15 88 20 94 Venturi Mask 6.0 35 03/15/19 20:06 88 18 98 Venturi Mask 6.0 35 03/15/19 20:00 97.9 85 18 134/73 (93) 98 03/15/19 20:00 Venturi Mask 03/15/19 19:55 98 Venturi Mask 6.0 35 03/15/19 19:55 84 18 98 Venturi Mask 6.0 35 03/15/19 19:33 80 03/15/19 16:00 93 03/15/19 16:00 98.1 86 18 135/79 (97) 99 03/15/19 16:00 Venturi Mask 03/15/19 15:10 85 20 99 Venturi Mask 6.0 35 87 20 98 03/15/19 12:00 97.8 108 20 143/62 (89) 96 03/15/19 12:00 Venturi Mask 03/15/19 11:23 112 03/15/19 10:45 94 20 99 Venturi Mask 8.0 40 96 20 97 03/15/19 08:03 97 Venturi Mask 8.0 40 03/15/19 08:03 90 20 98 Venturi Mask 8.0 40 91 20 94 03/15/19 08:00 98.5 91 18 153/87 (109) 94 03/15/19 08:00 Venturi Mask 03/15/19 07:38 91 03/15/19 04:00 98.5 91 24 143/69 (93) 94 03/15/19 04:00 Venturi Mask 03/15/19 03:34 95 03/15/19 03:07 82 20 98 Venturi Mask 8.0 40 80 20 95 03/15/19 00:00 Venturi Mask 03/15/19 00:00 99.0 98 24 146/84 (104) 97 03/15/19 00:00 35 03/15/19 00:00 94 03/14/19 23:20 99 22 99 Venturi Mask 8.0 40 99 22 95 03/14/19 20:00 98.8 95 24 149/81 (103) 94 03/14/19 20:00 35 03/14/19 20:00 Venturi Mask 03/14/19 19:43 94 03/14/19 19:06 93 22 98 Venturi Mask 8.0 40 91 22 96 03/14/19 16:00 Venturi Mask 03/14/19 16:00 97.7 109 20 121/70 (87) 93 03/14/19 15:55 103 03/14/19 14:44 100 24 96 Venturi Mask 8.0 40 94 24 23 03/14/19 12:00 Venturi Mask 03/14/19 12:00 98.1 96 20 139/77 (97) 93 03/14/19 11:40 108 03/14/19 11:20 94 22 97 Non-Rebreather 15.0 100 89 20 94 Intake and Output 03/15/19 03/16/19 19:00 07:00 Intake Total 1094.5 ml 1261.0 ml Balance 1094.5 ml 1261.0 ml Intake Oral 30 ml IV Total 1064.5 ml 1261.0 ml # Voids 2 4 # Bowel Movements 2 5 Labs Test 03/14/19 03:15 03/15/19 07:10 03/16/19 03:08 White Blood Count 7.7 K/UL (4.8-10.8) 7.7 K/UL (4.8-10.8) 7.8 K/UL (4.8-10.8) Red Blood Count 4.32 M/UL (4.20-5.40) 4.10 M/UL (4.20-5.40) 4.24 M/UL (4.20-5.40) Hemoglobin 12.8 G/DL (12.0-16.0) 11.9 G/DL (12.0-16.0) 12.5 G/DL (12.0-16.0) Hematocrit 38.3 % (37.0-47.0) 36.3 % (37.0-47.0) 37.7 % (37.0-47.0) Mean Corpuscular Volume 89 FL (80-99) 88 FL (80-99) 89 FL (80-99) Mean Corpuscular Hemoglobin 29.7 PG (27.0-31.0) 29.1 PG (27.0-31.0) 29.4 PG (27.0-31.0) Mean Corpuscular Hemoglobin Concent 33.5 G/DL (32.0-36.0) 32.9 G/DL (32.0-36.0) 33.1 G/DL (32.0-36.0) Red Cell Distribution Width 11.7 % (11.6-14.8) 11.8 % (11.6-14.8) 11.6 % (11.6-14.8) Platelet Count 177 K/UL (150-450) 180 K/UL (150-450) 193 K/UL (150-450) Mean Platelet Volume 6.9 FL (6.5-10.1) 6.7 FL (6.5-10.1) 6.5 FL (6.5-10.1) Neutrophils (%) (Auto) 79.1 % (45.0-75.0) 71.1 % (45.0-75.0) 72.0 % (45.0-75.0) Lymphocytes (%) (Auto) 12.1 % (20.0-45.0) 12.7 % (20.0-45.0) 11.3 % (20.0-45.0) Monocytes (%) (Auto) 7.7 % (1.0-10.0) 10.6 % (1.0-10.0) 10.4 % (1.0-10.0) Eosinophils (%) (Auto) 0.9 % (0.0-3.0) 4.8 % (0.0-3.0) 5.7 % (0.0-3.0) Basophils (%) (Auto) 0.3 % (0.0-2.0) 0.8 % (0.0-2.0) 0.6 % (0.0-2.0) Sodium Level 140 MMOL/L (136-145) 143 MMOL/L (136-145) 141 MMOL/L (136-145) Potassium Level 3.2 MMOL/L (3.5-5.1) 3.8 MMOL/L (3.5-5.1) 3.7 MMOL/L (3.5-5.1) Chloride Level 105 MMOL/L (98-107) 108 MMOL/L (98-107) 105 MMOL/L (98-107) Carbon Dioxide Level 23 MMOL/L (21-32) 25 MMOL/L (21-32) 26 MMOL/L (21-32) Anion Gap 12 mmol/L (5-15) 10 mmol/L (5-15) 10 mmol/L (5-15) Blood Urea Nitrogen 12 mg/dL (7-18) 10 mg/dL (7-18) 9 mg/dL (7-18) Creatinine 0.8 MG/DL (0.55-1.30) 0.8 MG/DL (0.55-1.30) 0.8 MG/DL (0.55-1.30) Estimat Glomerular Filtration Rate mL/min (>60) mL/min (>60) mL/min (>60) Glucose Level 90 MG/DL (74-106) 92 MG/DL (74-106) 131 MG/DL (74-106) Calcium Level 9.2 MG/DL (8.5-10.1) 9.3 MG/DL (8.5-10.1) 9.4 MG/DL (8.5-10.1) Total Bilirubin 1.0 MG/DL (0.2-1.0) 0.7 MG/DL (0.2-1.0) Aspartate Amino Transf (AST/SGOT) 28 U/L (15-37) 31 U/L (15-37) Alanine Aminotransferase (ALT/SGPT) 19 U/L (12-78) 24 U/L (12-78) Alkaline Phosphatase 63 U/L (46-116) 53 U/L (46-116) Total Protein 6.8 G/DL (6.4-8.2) 6.4 G/DL (6.4-8.2) Albumin 2.4 G/DL (3.4-5.0) 2.3 G/DL (3.4-5.0) Globulin 4.4 g/dL 4.1 g/dL Albumin/Globulin Ratio 0.5 (1.0-2.7) 0.6 (1.0-2.7) Phosphorus Level 3.2 MG/DL (2.5-4.9) Magnesium Level 1.7 MG/DL (1.8-2.4) Height (Feet): 5 Height (Inches): 8.00 Weight (Pounds): 144 Objective Vitals: reviewed General Appearance: NAD HEENT: normocephalic, atraumatic Neck: non-tender, normal alignment Breast: left breast with 1-2 cm mass, mobile, difficult to access borders Respiratory/Chest: normal breath sounds b/l Cardiovascular/Chest: normal peripheral pulses, normal rate Abdomen: normal bowel sounds, soft, nontender Extremities: normal range of motion Josué Viera MD Mar 16, 2019 09:59
--- NOTE | 2019-03-16 11:19 | Diagnostic Imaging Report ---
EXAM: XR Chest, 1 View CLINICAL HISTORY: SOB TECHNIQUE: Frontal view of the chest. COMPARISON: Chest x-ray, 03 11 19 FINDINGS: Lungs: Hypoventilatory lungs. Bibasilar lung atelectasis airspace disease, worsening in the left retrocardiac region. Pleural space: Small left pleural effusion. No pneumothorax. Heart: Unremarkable. No cardiomegaly. Mediastinum: Unremarkable. Bones joints: Unremarkable. Vasculature: Mild vascular and interstitial prominence. IMPRESSION: 1. Hypoventilatory lungs. Bibasilar lung atelectasis airspace disease, worsening in the left retrocardiac region. 2. Small left pleural effusion.
--- NOTE | 2019-03-16 11:54 | NUR ---
NURSE NOTES: SPOKE WITH MD HERNANDEZ, REGARDING CXR AND ABG RESULTS PH 7.433, QWT336.4, PO269.6, HCO3 22.5. OK TO D/C PT IN AM IF UNEVENTFUL NIGHT.
[2019-03-16 12:00] VITALS: BP 140/80
--- NOTE | 2019-03-16 12:20 | NUR ---
NURSE NOTES: LATE ENTRY PT IN BED.CONTINUES TO WIGGLE AROUND IN HEAD, SLIDES DOWN TO PULL AT IV TUBING. TEMP 97.7. BP 140/80, HR 81. PUPILS 3MM SLUGGISH. PT ON 4LNC WITH HUMIDIFIER SATING 99%.RR 18. NON PRODUCTIVE COUGH. NO BM NOTED. PT ON REGULAR PUREE DIET, CRUSH MEDICATIONS. PT INCONTINENT X 3, YELLOW URINE. BILATERAL RADIAL AND PEDAL PULSES WEAK.TRACE EDEMA UPPER EXTREMITIES. IV: LT HAND 22G RUNNING D5 NS+20MEQ KCL AT80ML/HR. KERLIX WRAPPED, TO PREVENT PT FROM PULLING OUT IV. DRESSING DRY INTACT. SKIN- SEE ASSESSMENT. STANDARD PRECAUTIONS IN PLACE. BED LOCKED, ALARM ON, IN LOW POSITION AND SIDE RAILS X3. ZONE 2. CALL LIGHT IN REACH. WILL CONTINUE TO IMPLEMENT PLAN OF CARE.
--- NOTE | 2019-03-16 12:54 | NUR ---
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 CURRENT DIET: Regular, liquify puree NTL + ensure TID PO DIET RECOMMENDATIONS: LIBERALIZED REGULAR DIET (texture per SHANK ARCHER) + Ensure TID ENTERAL NUTRITION RECOMMENDATIONS: Glucerna 1.2 @ 60ml/hr x 24 hrs to provide 1440ml, 1728kcal, 86g prot, 1159ml free water * If TF part of POC and indicated, obtain GI access. * Rec carb controlled TF formula of Glucerna 1.2 for elev FBGs * Initiate Glucerna 1.2 @ 20ml/hr x 6 hrs * Advance TF 10ml q 4-6 hrs as tolerated to goal rate. ------- ADDITIONAL RECOMMENDATIONS: 1) Per SNF-> HT: 5'8" WT: 143# 2) Rec to recalibrate bedscale wt -> bedscale wt on 03/1124=241cvx vs EMR wt 147lbs 3) F/up w/ SHANK ARCHER eval-> now on liquify puree/ NTL 4) Monitor PO intake closely -> pt admitted w/ FTT, cont w/ poor PO -> consider nonoral feedings 5) A1C for eval of glycemic control: mildly elev FBGs (90-136)
[2019-03-16] MEDS: D5 1/2NS w/KCl 20mEq 1,000 ML IV SCH (13:28)
[2019-03-16] MEDS ORDERED: Tubing IV Secondary IV ONE (15:17)
[2019-03-16 16:00] VITALS: BP 91/73
--- NOTE | 2019-03-16 16:00 | NUR ---
NURSE NOTES: PT IN BED. CONTINUES SLIDE DOWN TO PULL AT IV TUBING. TEMP 98. BP 91/73, HR 88. PUPILS 3MM SLUGGISH. PT ON 4LNC WITH HUMIDIFIER SATING 94%.RR 20. NO RESPIRATORY DISTRESS NOTED. NO BM NOTED. PT INCONTINENT X1, YELLOW URINE. BILATERAL RADIAL AND PEDAL PULSES WEAK.TRACE EDEMA UPPER EXTREMITIES. IV: LT HAND 22G RUNNING D5 NS+20MEQ KCL AT80ML/HR. KERLIX WRAPPED, TO PREVENT PT FROM PULLING OUT IV. DRESSING DRY INTACT. PT REPOSITIONED AND ORAL CARE PROVIDED. RESTRAINTS SECURED. WILL CONTINUE TO MONITOR PT.
--- NOTE | 2019-03-16 19:23 | NUR ---
NURSE NOTES: Received report from Marylou WILLIS, pt. is resting in bed- A/O x'1- to name, no signs or symptoms of acute cardiac or respiratory distress noted, pt sating 93% well on 4L NC- no distress noted and pt. resting comfortably Patient is clean and dry, skin is intact. Bilateral soft wrist restraints applied. Assessed CMS, remains in tact. RT. Hand 22G running D5 1/2NS with 20 mEq kcl at 80Ml/hr- IV intact and patent Safety measures and aspiration precautions continued, will continue with plan of care. Bed remains in lowest position, call light within easy reach, side rails up x's 3 and safety brakes engaged.
--- NOTE | 2019-03-16 19:30 | NUR ---
HAND-OFF: Report given to GEOVANNI WILLIS. PT IN NO ACUTE DISTRESS.
[2019-03-16 20:00] VITALS: BP 90/62
--- NOTE | 2019-03-16 23:55 | General Progress Note ---
Assessment/Plan Problem List: (1) Failure to thrive in adult ICD Codes: R62.7 - Failure to thrive in adult SNOMED: 545399143 Qualifiers: Qualified Codes: R62.7 - Adult failure to thrive (2) Hypertension ICD Codes: I10 - Essential (primary) hypertension SNOMED: 84831857 (3) Chronic obstructive pulmonary disease (COPD) ICD Codes: J44.9 - Chronic obstructive pulmonary disease, unspecified SNOMED: 91768072 (4) Schizo affective schizophrenia ICD Codes: F25.0 - Schizoaffective disorder, bipolar type SNOMED: 821352863 (5) Dementia ICD Codes: F03.90 - Unspecified dementia without behavioral disturbance SNOMED: 57762188 (6) Breast cancer ICD Codes: C50.919 - Malignant neoplasm of unspecified site of unspecified female breast SNOMED: 261650704 Status: stable, progressing, other - Very aggitated Status Narrative She is improving and on O2 by DC. Arrangement for discharge being made. Assessment/Plan: She will be discharged and she will have US guided bx of mammogram as outpatient. Following that surgical evaluation. patient is agitated and being evaluated by psychiatry. Will discharge when neuro status improves Subjective ROS Limited/Unobtainable: Yes Constitutional: Reports: weakness HEENT: Reports: no symptoms Cardiovascular: Reports: no symptoms Respiratory: Reports: cough, SOB with excertion Gastrointestinal/Abdominal: Reports: no symptoms Genitourinary: Reports: no symptoms Neurologic/Psychiatric: Reports: no symptoms Endocrine: Reports: no symptoms Allergies: Coded Allergies: No Known Allergies (Unverified , 03/05/19) Objective Last 24 Hour Vital Signs Date Time Temp Pulse Resp B/P (MAP) Pulse Ox O2 Delivery O2 Flow Rate FiO2 03/16/19 23:31 77 18 98 Nasal Cannula 4.0 36 03/16/19 23:21 76 18 96 Nasal Cannula 4.0 36 03/16/19 20:21 80 03/16/19 20:00 Nasal Cannula 4.0 03/16/19 20:00 97.1 81 16 90/62 (71) 95 03/16/19 19:46 76 20 99 Nasal Cannula 4.0 36 03/16/19 19:39 78 20 96 Nasal Cannula 4.0 36 03/16/19 19:36 96 Nasal Cannula 4.0 36 03/16/19 19:36 78 20 96 Nasal Cannula 4.0 36 03/16/19 16:00 Nasal Cannula 4.0 03/16/19 16:00 98.0 88 20 91/73 (79) 94 03/16/19 16:00 88 03/16/19 15:19 89 20 97 Nasal Cannula 5.0 40 88 20 95 03/16/19 12:00 97.7 81 18 140/80 (100) 99 03/16/19 12:00 86 03/16/19 12:00 Nasal Cannula 4.0 03/16/19 11:00 81 20 99 Nasal Cannula 5.0 40 83 20 96 03/16/19 08:00 106 03/16/19 08:00 97.8 94 20 144/76 (98) 94 03/16/19 08:00 Venturi Mask 03/16/19 07:12 87 20 99 Venturi Mask 6.0 35 86 20 96 03/16/19 07:11 96 Venturi Mask 6.0 35 03/16/19 04:00 Venturi Mask 03/16/19 04:00 98.0 76 18 133/69 (90) 99 03/16/19 03:43 85 20 99 Venturi Mask 6.0 35 03/16/19 03:38 84 03/16/19 03:33 86 20 97 Venturi Mask 6.0 35 03/16/19 01:07 35 03/16/19 00:00 Venturi Mask 03/16/19 00:00 98.1 78 18 139/81 (100) 98 Intake and Output 03/15/19 03/16/19 18:59 06:59 Intake Total 1094.5 ml 1261.0 ml Balance 1094.5 ml 1261.0 ml Intake Oral 30 ml IV Total 1064.5 ml 1261.0 ml # Voids 2 4 # Bowel Movements 2 5 Laboratory Tests 03/16/19 03:08: White Blood Count 7.8, Red Blood Count 4.24, Hemoglobin 12.5, Hematocrit 37.7, Mean Corpuscular Volume 89, Mean Corpuscular Hemoglobin 29.4, Mean Corpuscular Hemoglobin Concent 33.1, Red Cell Distribution Width 11.6, Platelet Count 193, Mean Platelet Volume 6.5, Neutrophils (%) (Auto) 72.0, Lymphocytes (%) (Auto) 11.3L, Monocytes (%) (Auto) 10.4H, Eosinophils (%) (Auto) 5.7H, Basophils (%) ( Auto) 0.6, Sodium Level 141, Potassium Level 3.7, Chloride Level 105, Carbon Dioxide Level 26, Anion Gap 10, Blood Urea Nitrogen 9, Creatinine 0.8, Estimat Glomerular Filtration Rate , Glucose Level 131H, Calcium Level 9.4, Phosphorus Level 3.2, Magnesium Level 1.7L 03/16/19 10:00: Arterial Blood pH 7.433, Arterial Blood Partial Pressure CO2 34.4L, Arterial Blood Partial Pressure O2 69.6L, Arterial Blood HCO3 22.5, Arterial Blood Oxygen Saturation 94.2L, Arterial Blood Base Excess -1.2, Dagoberto Test Positive Height (Feet): 5 Height (Inches): 8.00 Weight (Pounds): 144 General Appearance: WD/WN, no apparent distress EENT: PERRL/EOMI Neck: non-tender Cardiovascular: normal peripheral pulses Respiratory/Chest: chest wall non-tender, lungs clear Abdomen: normal bowel sounds, hypoactive bowel sounds Pelvis: normal external exam Extremities: normal range of motion, normal capillary refill Jose Francisco Winters MD Mar 16, 2019 23:55
[2019-03-17] VITALS: BP 107/61
[2019-03-17] MEDS: D5 1/2NS w/KCl 20mEq 1,000 ML IV SCH (01:46)
[2019-03-17] MEDS: Albuterol/Ipratropium 3ml neb HHN SCH ×4 (03:39→14:55)
[2019-03-17 04:00] VITALS: BP 122/62
[2019-03-17] MEDS: Piperacillin/Tazobactam 3.375 GM in NS 110 ML IVPB SCH ×2 (05:10→13:13)
--- NOTE | 2019-03-17 06:33 | NUR ---
NURSE NOTES: Patient unable to swallow pantoprazole safely. Patient drowsy and pill unable to be crushed.
--- NOTE | 2019-03-17 07:23 | NUR ---
HAND-OFF: Report given to Catia WILLIS, pt. is resting in bed- A/O x'1- to name, no signs or symptoms of acute cardiac or respiratory distress noted, pt sating well on 4L NC- no distress noted and pt. resting comfortably Bilateral soft wrist restraints applied for patient safety. Assessed CMS, remains in tact. RT. Hand 22G running D5 1/2NS with 20 mEq kcl at 80Ml/hr- IV intact and patent Safety measures and aspiration precautions continued. Bed remains in lowest position, call light within easy reach, side rails up x's 3 and safety brakes engaged.
--- NOTE | 2019-03-17 07:25 | NUR ---
NURSE NOTES: Received bedside report from Gigi WILLIS. Pt. in bed, sleeping but arousable. No sign of distress. On O2 at 4LPM via NC. No grimacing noted. IV line at right hand #22g. in placed patent/intact running D5 1/2 NS at 80cc/hr. Tolerating well. Bilateral soft wrist restrain in placed. CMS intact. Bed in low position, locked. Bed alarm on. Notified CN for posssible pt. discharge today. Call light within reach. Will cont. to monitor.
--- NOTE | 2019-03-17 07:32 | Hematology/Onc Progress Note ---
Assessment/Plan Assessment/Plan Assessment and Recs; # Left breast mass with soft borders on exam, requires conservator for bx --> ct chest 2 cm left breast mass, concerning for neoplasm particularly given. Stated clinical findings Left axillary adenopathy is likely metastatic --> reviewed clinical exam, still needs to have a mammo done --> excisional biopsy v us guided biopsy (needs consent) --> seen by surg, needs consent, have called them and jose RN # Failure to thrive (FTT) - decreased bmi and low protein --> have ordered for cea level --> will obtain q3 day caloric counts --> may consider mirtazapine as appetite stimulant --> GI consult on a prn basis, as needed for endosc # Thrombocytopenia new onset --> obtain plt count, trend as needed, hep and hiv, us abd prn --> plt 175-->145k-->180k-->193 --> cbc re-ordered --> abx reviewed # Anemia of chronic disease --> may be due to hemodilution as well --> trend hgb 13-->11.9 # Leukocytosis, mild --> 13-->13-->7 --> r/o infection, abx as needed Zosyn # Dehydration --> ivf have been given --> bmp ordered # Confusion --> potentially dementia related --> psych eval prn --> has conservator # Dvt ppx lovenox sq The timing of this note does not necessarily reflect the time of the patient was seen. Greatly appreciate consultation. Subjective Constitutional: Denies: no symptoms, chills, fever, malaise, weakness, other HEENT: Denies: no symptoms, eye pain, blurred vision, tearing, double vision, ear pain, ear discharge, nose pain, nose congestion, throat pain, throat swelling, mouth pain, mouth swelling, other Cardiovascular: Denies: no symptoms, chest pain, edema, irregular heart rate, lightheadedness, palpitations, syncope, other Respiratory: Denies: no symptoms, cough, shortness of breath, SOB with excertion, SOB at rest, sputum, wheezing, other Gastrointestinal/Abdominal: Denies: no symptoms, abdomen distended, abdominal pain, black stools, tarry stools, blood in stool, constipated, diarrhea, difficulty swallowing, nausea, poor appetite, poor fluid intake, rectal bleeding , vomiting, other Genitourinary: Denies: no symptoms, burning, discharge, frequency, flank pain, hematuria, incontinence, pain, urgency, other Neurologic/Psychiatric: Denies: no symptoms, anxiety, depressed, emotional problems, headache, numbness, paresthesia, pre-existing deficit, seizure, tingling, tremors, weakness, other Allergies: Coded Allergies: No Known Allergies (Unverified , 03/05/19) Subjective 10.: remains altered, seen by pscy, potential dc once improves ams 03/10: Jose rn, consent for scan was signed 03/11: requiring restartings, imaging reviewed from last night 03/12: no bleeding or chills noted, no major changes 03/13: no bleeding nor chills, is stable otherwise, no events 03/14: remains somewhat agitated, with ivf, no events 03/15: remains agitated, seen by psych, no f/c 03/16: no events, with nc, no bleeding, is comfortable 03/17: still remains somewhat confused, no bleeding or chill Objective Objective Current Medications Medications (Trade) Dose Ordered Sig/León Route PRN Reason Start Time Stop Time Status Last Admin Dose Admin Acetaminophen (Tylenol) 650 mg Q4H PRN ORAL Mild Pain/Temp > 100.5 03/11/19 05:00 04/04/19 04:59 Albuterol/ Ipratropium (Albuterol/ Ipratropium) 3 ml Q4HRT HHN 03/15/19 11:00 03/20/19 06:59 03/17/19 07:17 Dextrose/ Electrolytes 1,000 ml @ 80 mls/hr [id number] IV 03/14/19 23:15 04/13/19 23:14 03/17/19 01:46 Enoxaparin Sodium (Lovenox) 30 mg DAILY SUBQ 03/16/19 09:00 04/15/19 08:59 03/16/19 09:51 Haloperidol Lactate (Haldol) 5 mg Q6H PRN IM Agitation 03/11/19 15:30 04/10/19 15:29 03/15/19 21:18 Magnesium Hydroxide (Mom) 30 ml DAILYPRN PRN ORAL Constipation 03/11/19 05:00 04/04/19 04:59 Olanzapine (ZyPREXA) 5 mg TID ORAL 03/11/19 09:00 04/08/19 08:59 03/16/19 17:04 Pantoprazole (Protonix) 40 mg DAILY@0630 ORAL 03/11/19 06:30 04/05/19 06:29 03/16/19 05:37 Piperacillin Sod/ Tazobactam Sod 3.375 gm/Sodium Chloride 110 ml @ 27.5 mls/hr Q8H IVPB 03/11/19 09:00 03/18/19 08:59 03/17/19 05:10 Last 24 Hour Vital Signs Date Time Temp Pulse Resp B/P (MAP) Pulse Ox O2 Delivery O2 Flow Rate FiO2 03/17/19 07:19 98 Nasal Cannula 4.0 36 03/17/19 07:17 77 18 99 Nasal Cannula 4.0 36 73 18 98 03/17/19 04:00 Nasal Cannula 4.0 03/17/19 04:00 97.5 86 16 122/62 (82) 94 03/17/19 03:49 81 18 9 Nasal Cannula 4.0 36 03/17/19 03:39 76 18 97 Nasal Cannula 4.0 36 03/17/19 03:36 75 03/17/19 00:00 4.0 03/17/19 00:00 Nasal Cannula 4.0 03/17/19 00:00 97.7 85 16 107/61 (76) 94 03/16/19 23:32 78 03/16/19 23:31 77 18 98 Nasal Cannula 4.0 36 03/16/19 23:21 76 18 96 Nasal Cannula 4.0 36 03/16/19 20:21 80 03/16/19 20:00 4.0 03/16/19 20:00 Nasal Cannula 4.0 03/16/19 20:00 97.1 81 16 90/62 (71) 95 03/16/19 19:46 76 20 99 Nasal Cannula 4.0 36 03/16/19 19:39 78 20 96 Nasal Cannula 4.0 36 03/16/19 19:36 96 Nasal Cannula 4.0 36 03/16/19 19:36 78 20 96 Nasal Cannula 4.0 36 03/16/19 16:00 Nasal Cannula 4.0 03/16/19 16:00 98.0 88 20 91/73 (79) 94 03/16/19 16:00 88 03/16/19 15:19 89 20 97 Nasal Cannula 5.0 40 88 20 95 03/16/19 12:00 97.7 81 18 140/80 (100) 99 03/16/19 12:00 86 03/16/19 12:00 Nasal Cannula 4.0 03/16/19 11:00 81 20 99 Nasal Cannula 5.0 40 83 20 96 03/16/19 08:00 106 03/16/19 08:00 97.8 94 20 144/76 (98) 94 03/16/19 08:00 Venturi Mask 03/16/19 07:12 87 20 99 Venturi Mask 6.0 35 86 20 96 03/16/19 07:11 96 Venturi Mask 6.0 35 03/16/19 04:00 Venturi Mask 03/16/19 04:00 98.0 76 18 133/69 (90) 99 03/16/19 03:43 85 20 99 Venturi Mask 6.0 35 03/16/19 03:38 84 03/16/19 03:33 86 20 97 Venturi Mask 6.0 35 03/16/19 01:07 35 03/16/19 00:00 Venturi Mask 03/16/19 00:00 98.1 78 18 139/81 (100) 98 03/15/19 23:40 91 03/15/19 23:23 86 18 97 Venturi Mask 6.0 35 03/15/19 23:15 88 20 94 Venturi Mask 6.0 35 03/15/19 20:06 88 18 98 Venturi Mask 6.0 35 03/15/19 20:00 97.9 85 18 134/73 (93) 98 03/15/19 20:00 Venturi Mask 03/15/19 19:55 98 Venturi Mask 6.0 35 03/15/19 19:55 84 18 98 Venturi Mask 6.0 35 03/15/19 19:33 80 03/15/19 16:00 93 03/15/19 16:00 98.1 86 18 135/79 (97) 99 03/15/19 16:00 Venturi Mask 03/15/19 15:10 85 20 99 Venturi Mask 6.0 35 87 20 98 03/15/19 12:00 97.8 108 20 143/62 (89) 96 03/15/19 12:00 Venturi Mask 03/15/19 11:23 112 03/15/19 10:45 94 20 99 Venturi Mask 8.0 40 96 20 97 03/15/19 08:03 97 Venturi Mask 8.0 40 03/15/19 08:03 90 20 98 Venturi Mask 8.0 40 91 20 94 03/15/19 08:00 98.5 91 18 153/87 (109) 94 03/15/19 08:00 Venturi Mask 03/15/19 07:38 91 Intake and Output 03/16/19 03/17/19 19:00 07:00 Intake Total 1262.66 ml 1119.076 ml Balance 1262.66 ml 1119.076 ml Intake Oral 30 ml 0 ml IV Total 1232.66 ml 1119.076 ml # Voids 2 3 Labs Test 03/15/19 07:10 03/16/19 03:08 03/16/19 10:00 White Blood Count 7.7 K/UL (4.8-10.8) 7.8 K/UL (4.8-10.8) Red Blood Count 4.10 M/UL (4.20-5.40) 4.24 M/UL (4.20-5.40) Hemoglobin 11.9 G/DL (12.0-16.0) 12.5 G/DL (12.0-16.0) Hematocrit 36.3 % (37.0-47.0) 37.7 % (37.0-47.0) Mean Corpuscular Volume 88 FL (80-99) 89 FL (80-99) Mean Corpuscular Hemoglobin 29.1 PG (27.0-31.0) 29.4 PG (27.0-31.0) Mean Corpuscular Hemoglobin Concent 32.9 G/DL (32.0-36.0) 33.1 G/DL (32.0-36.0) Red Cell Distribution Width 11.8 % (11.6-14.8) 11.6 % (11.6-14.8) Platelet Count 180 K/UL (150-450) 193 K/UL (150-450) Mean Platelet Volume 6.7 FL (6.5-10.1) 6.5 FL (6.5-10.1) Neutrophils (%) (Auto) 71.1 % (45.0-75.0) 72.0 % (45.0-75.0) Lymphocytes (%) (Auto) 12.7 % (20.0-45.0) 11.3 % (20.0-45.0) Monocytes (%) (Auto) 10.6 % (1.0-10.0) 10.4 % (1.0-10.0) Eosinophils (%) (Auto) 4.8 % (0.0-3.0) 5.7 % (0.0-3.0) Basophils (%) (Auto) 0.8 % (0.0-2.0) 0.6 % (0.0-2.0) Sodium Level 143 MMOL/L (136-145) 141 MMOL/L (136-145) Potassium Level 3.8 MMOL/L (3.5-5.1) 3.7 MMOL/L (3.5-5.1) Chloride Level 108 MMOL/L (98-107) 105 MMOL/L (98-107) Carbon Dioxide Level 25 MMOL/L (21-32) 26 MMOL/L (21-32) Anion Gap 10 mmol/L (5-15) 10 mmol/L (5-15) Blood Urea Nitrogen 10 mg/dL (7-18) 9 mg/dL (7-18) Creatinine 0.8 MG/DL (0.55-1.30) 0.8 MG/DL (0.55-1.30) Estimat Glomerular Filtration Rate mL/min (>60) mL/min (>60) Glucose Level 92 MG/DL (74-106) 131 MG/DL (74-106) Calcium Level 9.3 MG/DL (8.5-10.1) 9.4 MG/DL (8.5-10.1) Total Bilirubin 0.7 MG/DL (0.2-1.0) Aspartate Amino Transf (AST/SGOT) 31 U/L (15-37) Alanine Aminotransferase (ALT/SGPT) 24 U/L (12-78) Alkaline Phosphatase 53 U/L (46-116) Total Protein 6.4 G/DL (6.4-8.2) Albumin 2.3 G/DL (3.4-5.0) Globulin 4.1 g/dL Albumin/Globulin Ratio 0.6 (1.0-2.7) Phosphorus Level 3.2 MG/DL (2.5-4.9) Magnesium Level 1.7 MG/DL (1.8-2.4) Arterial Blood pH 7.433 (7.350-7.450) Arterial Blood Partial Pressure CO2 34.4 mmHg (35.0-45.0) Arterial Blood Partial Pressure O2 69.6 mmHg (75.0-100.0) Arterial Blood HCO3 22.5 mmol/L (22.0-26.0) Arterial Blood Oxygen Saturation 94.2 % (95-100) Arterial Blood Base Excess -1.2 (-2-2) Dagoberto Test Positive Height (Feet): 5 Height (Inches): 8.00 Weight (Pounds): 144 Objective Vitals: reviewed General Appearance: NAD HEENT: normocephalic, atraumatic Neck: non-tender, normal alignment Breast: left breast with 1-2 cm mass, mobile, difficult to access borders Respiratory/Chest: normal breath sounds b/l Cardiovascular/Chest: normal peripheral pulses, normal rate Abdomen: normal bowel sounds, soft, nontender Extremities: normal range of motion Josué Viera MD Mar 17, 2019 07:32
[2019-03-17 08:00] VITALS: BP 124/57
[2019-03-17] MEDS: Enoxaparin 30mg Inj SUBQ SCH (08:59)
[2019-03-17 12:00] VITALS: BP 131/58
--- NOTE | 2019-03-17 14:17 | Cardiology Report ---
APPROVED REPORT EKG Measurement Heart [id number] Sinus tachycardia with frequent premature ventricular complexes Possible Left atrial enlargement Low voltage QRS Possible Lateral infarct, age undetermined Abnormal ECG
--- NOTE | 2019-03-17 14:38 | NUR ---
NURSE NOTES: Called Gurdeep Epps and gave report to Isabelle WILLIS supervisor ticket sales.
--- NOTE | 2019-03-17 15:00 | NUR ---
NURSE NOTES: Removed pt. restrains. Sponge bath given to pt.
--- NOTE | 2019-03-17 16:15 | NUR ---
Discharge: Patient is being discharged to [facility] from medical care. Awake, alert and oriented x1. Confused and forgetful. Report were given to Isabelle WILLIS. Dr. Winters gave order to continue hospital medications and he will f/u with pt. at SNF. All medical devices such as IV, cardiac rehabilitation program director and ID band were removed. Patient wheeledu out via [facility]. Pt. remain stable.
[2019-03-17] MEDS ORDERED: Tubing IV Secondary IV ONE (16:16)
--- NOTE | 2019-03-17 20:45 | Progress Note ---
DATE: 03/17/2019 SUBJECTIVE: The patient is still in step-down, confused, has episodes of agitation, unable to participate and answers the questions. Continues to have waxing and waning of consciousness, drowsiness. MENTAL STATUS EXAMINATION: The patient is having waxing and waning consciousness. Mood is agitated. Affect is flat. Thought process, disorganized. Thought content, no suicidal or homicidal ideation. Cognition is impaired. Insight and judgment is impaired. ASSESSMENT: AXIS I: 1. Acute encephalopathy. 2. Dementia. PLAN: 1. We will continue current psychotropic medications. 2. Provide the patient with reality orientation and supportive therapy. Owen Higgins M.D. DR: Colt JOB#: [id number] CC:
--- NOTE | 2019-03-17 23:50 | General Progress Note ---
Assessment/Plan Problem List: (1) Failure to thrive in adult ICD Codes: R62.7 - Failure to thrive in adult SNOMED: 848174488 Qualifiers: Qualified Codes: R62.7 - Adult failure to thrive (2) Hypertension ICD Codes: I10 - Essential (primary) hypertension SNOMED: 68800002 Qualifiers: Qualified Codes: I10 - Essential (primary) hypertension (3) Chronic obstructive pulmonary disease (COPD) ICD Codes: J44.9 - Chronic obstructive pulmonary disease, unspecified SNOMED: 94117896 Qualifiers: (4) Schizo affective schizophrenia ICD Codes: F25.0 - Schizoaffective disorder, bipolar type SNOMED: 248473023 (5) Dementia ICD Codes: F03.90 - Unspecified dementia without behavioral disturbance SNOMED: 46051114 Qualifiers: (6) Breast cancer ICD Codes: C50.919 - Malignant neoplasm of unspecified site of unspecified female breast SNOMED: 034577021 Qualifiers: Status: stable, progressing, other - Very aggitated Status Narrative She is doing well, her oxygenation improved. PO intake better, hemodynamics stable. Patient will go to Longterm under my care. Assessment/Plan: She will be discharged and she will have US guided bx of mammogram as outpatient. Following that surgical evaluation. patient is agitated and being evaluated by psychiatry. Will discharge when neuro status improves Subjective Date patient seen: Mar 17, 2019 Time patient seen: 09:30 ROS Limited/Unobtainable: Yes Constitutional: Reports: weakness HEENT: Reports: no symptoms Cardiovascular: Reports: no symptoms Respiratory: Reports: SOB with excertion Gastrointestinal/Abdominal: Reports: poor appetite Genitourinary: Reports: incontinence Neurologic/Psychiatric: Reports: no symptoms Endocrine: Reports: no symptoms Hematologic/Lymphatic: Reports: no symptoms Allergies: Coded Allergies: No Known Allergies (Unverified , 03/05/19) Objective Last 24 Hour Vital Signs Date Time Temp Pulse Resp B/P (MAP) Pulse Ox O2 Delivery O2 Flow Rate FiO2 03/17/19 16:00 Nasal Cannula 4.0 03/17/19 12:00 98.4 100 18 131/58 (82) 98 03/17/19 12:00 Nasal Cannula 4.0 03/17/19 11:47 94 03/17/19 10:48 64 20 98 Nasal Cannula 4.0 36 52 22 94 03/17/19 08:00 97.8 104 20 124/57 (79) 92 03/17/19 08:00 Nasal Cannula 4.0 03/17/19 07:53 84 03/17/19 07:19 98 Nasal Cannula 4.0 36 03/17/19 07:17 77 18 99 Nasal Cannula 4.0 36 73 18 98 03/17/19 04:00 Nasal Cannula 4.0 03/17/19 04:00 97.5 86 16 122/62 (82) 94 03/17/19 03:49 81 18 9 Nasal Cannula 4.0 36 03/17/19 03:39 76 18 97 Nasal Cannula 4.0 36 03/17/19 03:36 75 03/17/19 00:00 4.0 03/17/19 00:00 Nasal Cannula 4.0 03/17/19 00:00 97.7 85 16 107/61 (76) 94 Intake and Output 03/16/19 03/17/19 18:59 06:59 Intake Total 1315.0 ml 1054.236 ml Balance 1315.0 ml 1054.236 ml Intake Oral 45 ml 0 ml IV Total 1270.0 ml 1054.236 ml # Voids 3 2 Height (Feet): 5 Height (Inches): 8.00 Weight (Pounds): 144 General Appearance: no apparent distress EENT: PERRL/EOMI Neck: non-tender Cardiovascular: normal rate, regular rhythm Respiratory/Chest: rhonchi - bilaterally Abdomen: normal bowel sounds Extremities: normal range of motion, non-tender Edema: no edema noted Arm (L), no edema noted Arm (R), no edema noted Leg (L), no edema noted Leg (R), no edema noted Pedal (L), no edema noted Pedal (R), no edema noted Generalized Neurologic: alert, responsive, motor weakness, disoriented Skin: normal pigmentation Jose Francisco Winters MD Mar 17, 2019 23:50
--- NOTE | 2019-03-18 09:34 | Discharge Summary ---
Discharge Summary Discharge Summary _ DATE OF ADMISSION: 03/05/2018 DATE OF DISCHARGE:03/17/2019 DISCHARGED BY: REASON FOR ADMISSION: 84 years old female with past medical history of hypertension, COPD, GERD, dementia, left breast mass, presented with failure to thrive. Patient had conservator. Patient apparently was not eating in the facility. Laboratory work-up revealed no leukocytosis , stable hemoglobin and hematocrit. BUN 30, creatinine 1.2. Sodium 140. EKG revealed sinus rhythm, no acute ischemic changes. Troponin negative. Pro BNP 214. Ammonia 11. Stable LFT and lipase. Chest x-ray revealed no acute cardiopulmonary pathology. Patient was admitted for further management. CONSULTANTS: ham trimmer/oncologist Dr. Viera surgery Dr Barrientos psychiatrist [facility]RSE: Patient admitted and started on the IV hydration. DVT and GI prophylaxis provided. Supplemental oxygen provided and titrated to keep pulse oximetry above 92%. Pulmonary toilet with bronchodilator provided as needed. Patient started on empiric antibiotics. Blood cultures were negative. CT of the chest revealed 2 cm left breast mass concerning for neoplasm. Left axillary adenopathy, likely metastatic. Left upper lobe parenchymal opacity, possibly representing area of scaring, primary neoplasm or metastatic neoplasm. 4 x 2.9 x 6.7 cm left lower pole thyroid mass. L1 vertebral body burst/compression fracture , acuity undetermined , although suspected not acute. 6 mm area of focal soft tissue attenuation wall thickening at the gallbladder fundus, possibly representing a wall adherent calculus versus a small polyp. Abdominal ultrasound revealed cholelithiasis, but was negative for dilated bile ducts. Echogenic bilateral renal sinus foci, nonobstructive calculi versus artifact. Oncologist followed. Patient had a left breast mass, suspicious for malignancy on imaging. Patient will require conservator consent for biopsy. Oncologist recommended excisional biopsy versus ultrasound-guided biopsy. Surgeon seen and evaluated patient. Surgeon recommended excisional biopsy of the mass after consent we will be obtained from conservator. Patient continued on IV fluids. Renal parameters and electrolytes were closely monitored. Electrolytes/potassium and magnesium corrected as needed. Prior to discharge creatinine down to 0.8, BUN down to 9. Per dietary evaluation, patient was at high risk for malnutrition. Protein supplements implemented in plan of care as per registered midwife recommendation. Bedside swallow evaluation revealed high risk for aspiration. Diet texture provided as per speech therapist recommendations with strict aspiration /reflux precaution . Psychiatrist seen and evaluated patient Per psychiatrist patient had acute encephalopathy and dementia. Psychotropic medication regimen was optimized. Patient was provided with reality orientation and supportive therapy Supportive care provided. Oral fluids encouraged. Patient clinically stabilized: oxygenation improved, oral intake improved , patient remained hemodynamically stable. Patient was stable for discharge to residential facility. Patient will have ultrasound-guided biopsy as outpatient after consent will be obtained from the conservator. FINAL DIAGNOSES: Left breast mass Acute encephalopathy Dementia with behavioral disturbances Dehydration Hypertension COPD Schizoaffective schizophrenia Anemia of chronic disease DISCHARGE MEDICATIONS: The list of medication was sent to accepting facility. DISCHARGE INSTRUCTIONS: Patient was discharged to the residential facility. Follow up with medical doctor at the facility. I have been assigned to dictate discharge summary for this account. I was not involved in the patient's management. Hui Melgoza NP Mar 18, 2019 09:34
--- NOTE | 2019-03-30 23:05 | Coder Physician Query ---
Clarification is required for compliance, coding accuracy, and to reflect severity of illness for this patient Dear Dr. Box Date: ___03/30/19 ___ Ethnographic Materials Conservator/CDS Name: Levi Fernandez [facility] Acute encephalopathy was documented in your progress notes. Patient was confused , had episodes of agitation, unable to participate and answers the questions. Continued to have waxing and waning of consciousness and drowsiness. Please indicate the nature and chronicity of the condition below: [] Metabolic Encephalopathy [] Toxic Encephalopathy [] Toxic - Metabolic Encephalopathy [] Encephalopathy, Other [] Dementia with Delirium [] Hypoxic encephalopathy [] Posterior reversible encephalopathy syndrome [] Other: [] Not Applicable Present on Admission: [] Yes [] No [] Clinically Undetermined Physician signature Date Please also document in your Progress Notes and/or Discharge Summary and indicate if the condition was present on admission. TERRIED
== END 2019-03-17 16:17 | DRG 598 ==
LOC: EDBD 18:00 → EMR 18:40 → 4E 18:52 → EDBEDREQ 20:06 → 4E 03-08 16:14 → 2W 03-11 04:58
DX: C50.912 Malignant neoplasm of unspecified site of left female breast (principal); F03.91 Unspecified dementia, unspecified severity, with behavioral disturbance; G93.40 Encephalopathy, unspecified; E86.0 Dehydration; N63.20 Unspecified lump in the left breast, unspecified quadrant; R62.7 Adult failure to thrive; Z68.22 Body mass index [BMI] 22.0-22.9, adult; I10 Essential (primary) hypertension; F25.9 Schizoaffective disorder, unspecified; R41.0 Disorientation, unspecified; R59.0 Localized enlarged lymph nodes; D69.6 Thrombocytopenia, unspecified; D63.8 Anemia in other chronic diseases classified elsewhere; J44.9 Chronic obstructive pulmonary disease, unspecified
CPT/HCPCS: 36415; 36600; 71045; 71260; 76700; 80048; 80053; 82140; 82378; 82550; 82553; 82803; 82962; 83605; 83690; 83735; 83880; 84100; 84484; 85007; 85025; 85379; 85610; 85730; 86703; 86705; 86709; 86803; 87040; 87340; 93005; 94640; 94664; 96372; 99285; J7620

== ENCOUNTER 2019-05-01 20:16 | Inpatient (IN) | payer MEDICARE, MEDICAID ==
[~2019-05-01] VITALS: Ht 167.6 cm; Wt 63.5 kg
[2019-05-01 20:16] VITALS: BP 113/54
[~2019-05-01 20:16] MED LIST: ARICEPT10 MG ORAL; PANTOPRAZOLE SO40 MG ORAL
--- NOTE | 2019-05-01 20:16 | NUR ---
ED Nurse Note: PT. BROUGHT IN BY [facility] FROM [facility]. PER AMBLANCE PERSONNEL, PT. IS HERE FOR PRE-OP EVAL OF THE L-BREAST. PATIENT OPENS EYES SPONTANEOUSLY; WITHDRAWS TO PAIN; APHASIC. PT PRESENTS WITH NO ACUTE DISTRES; VSS.
[2019-05-01] MEDS ORDERED: CRANBERRY400 M1 PO (20:25)
[2019-05-01] MEDS ORDERED: ZYPREXA7.5 MG ORAL (20:25)
[2019-05-01] MEDS ORDERED: DUONEB 0.5-3(2.53 ML HHN (20:25)
[2019-05-01] MEDS ORDERED: ACETAMINOPHEN500 M5 ORAL (20:25)
[2019-05-01] MEDS ORDERED: MILK OF MA400 MG/51 ORAL (20:25)
--- NOTE | 2019-05-01 21:00 | NUR ---
ED Nurse Note: IV ACCESS ESTABLISHED. BLOOD, URINE, MRSA VRE CRE SWABS COLLECTED; SENT DOWN TO LAB. SACRAL REDNESS NOTED; OTHERWISE SKIN INTACT.
[2019-05-01 21:30] VITALS: BP 128/62
[2019-05-01 21:30] LABS: BASOPHILS % (AUTO) 0.8 % (0.0-2.0); HEMATOCRIT 39.4 % (37.0-47.0); HEMOGLOBIN 13.4 G/DL (12.0-16.0); LYMPHOCYTES % (AUTO) 16.2 % (20.0-45.0); MEAN CORPUSCULAR VOLUME 86 FL (80-99); MONOCYTES % (AUTO) 8.6 % (1.0-10.0); NEUTROPHILS % (AUTO) 71.4 % (45.0-75.0); PLATELET COUNT 199 K/UL (150-450); RED BLOOD COUNT 4.57 M/UL (4.20-5.40); RED CELL DISTRIBUTION WIDTH 11.3 % (11.6-14.8)
[2019-05-01 21:38] LABS: INR 0.9 (0.9-1.1)
[2019-05-01 21:39] LABS: ANION GAP 10 mmol/L (5-15); BLOOD UREA NITROGEN 27 mg/dL (7-18); CALCIUM 9.9 MG/DL (8.5-10.1); CARBON DIOXIDE 28 MMOL/L (21-32); CHLORIDE 107 MMOL/L (98-107); CREATININE 1.1 MG/DL (0.55-1.30); POTASSIUM 4.4 MMOL/L (3.5-5.1); SODIUM 145 MMOL/L (136-145)
[2019-05-01 21:52] LABS: ALANINE AMINOTRANSFERASE 53 U/L (12-78); ALBUMIN 3.3 G/DL (3.4-5.0); ALBUMIN/GLOBULIN RATIO 0.8 (1.0-2.7); ALKALINE PHOSPHATASE 75 U/L (46-116); ASPARTATE AMINO TRANSFERASE 79 U/L (15-37); BILIRUBIN,TOTAL 0.8 MG/DL (0.2-1.0); CREATINE KINASE 1263 U/L (26-308); PHOSPHORUS 4.2 MG/DL (2.5-4.9)
--- NOTE | 2019-05-01 21:54 | Emergency Room Report ---
History of Present Illness General Chief Complaint: General Complaint Source: EMS Present Illness HPI 84-year-old female under conservatorship history of left breast mass, noncommunicative, dementia, presents with left breast mass, patient was brought in to the hospital for operative management and excision, additionally patient is being brought in for failure to thrive, dehydration, unknown aggravating relieving factors severity is moderate, constant, Allergies: Coded Allergies: No Known Allergies (Unverified , 03/05/19) Patient History Limited by: medical condition - Dementia Past Medical History: see triage record Reviewed Nursing Documentation: PMH: Agreed; PSxH: Agreed Nursing Documentation-PMH Hx Hypertension: Yes Hx COPD: Yes Hx Gastrointestinal Problems: Yes - GERD Hx Dementia: Yes Hx Alzheimer's Disease: Yes Review of Systems All Other Systems: limited - Dementia Physical Exam Vital Signs Date Time Temp Pulse Resp B/P (MAP) Pulse Ox O2 Delivery O2 Flow Rate FiO2 05/01/19 20:13 98.1 74 20 113/54 (73) 92 Room Air Sp02 EP Interpretation: reviewed, normal General Appearance: alert, cachetic, Chronically Ill Head: normocephalic, atraumatic Eyes: bilateral eye PERRL, bilateral eye EOMI ENT: uvula midline, dry mucus membranes Neck: supple, thyroid normal, supple/symm/no masses Respiratory: lungs clear, no respiratory distress, no retraction, no accessory muscle use Cardiovascular #1: normal peripheral pulses, regular rate, rhythm, no edema, no gallop, no murmur Gastrointestinal: non tender, soft, no guarding, no rebound Musculoskeletal: normal inspection Neurologic: alert, responsive Skin: no rash, warm/dry Medical Decision Making Diagnostic Impression: Primary Impression: Failure to thrive in adult Additional Impressions: Dehydration Left breast mass Rhabdomyolysis Qualified Codes: M62.82 - Rhabdomyolysis ER Course 84-year-old female presents with failure to thrive, left breast mass. Patient brought in for failure to thrive, will provide patient with fluid hydration Preop labs ordered, patient will be admitted to Dr. Stoner for continued management EKG Diagnostic Results EKG Time: 20:36 EP Interpretation: NSR, rate 81, QTc 45, no acute ST elevations, normal axis Rhythm Strip Diag. Results Rhythm Strip Time: 21:53 EP Interpretation: yes Rate: 85 Rhythm: NSR, no PVC's, no ectopy Chest X-Ray Diagnostic Results Chest X-Ray Diagnostic Results : Chest X-Ray Ordered: Yes # of Views/Limited/Complete: 1 View Indication: Other - altered mental status EP Interpretation: Yes Interpretation: no consolidation, no effusion, no pneumothorax, no acute cardiopulmonary disease Impression: No acute disease Electronically Signed by: Matthias Garrido MD Last Vital Signs Date Time Temp Pulse Resp B/P (MAP) Pulse Ox O2 Delivery O2 Flow Rate FiO2 05/01/19 20:13 98.1 74 20 113/54 (73) 92 Room Air Disposition: ADMITTED INPATIENT Condition: Stable Matthias Garrido MD May 01, 2019 21:54
[2019-05-01 22:46] LABS: APPEARANCE,URINE VERY CLOUDY; BILIRUBIN, URINE NEGATIVE (NEGATIVE); COLOR,URINE PALE YELLOW; GLUCOSE, URINE (UA) NEGATIVE (NEGATIVE); KETONES,URINE 1+ (NEGATIVE); LEUKOCYTE ESTERASE ,URINE 3+ (NEGATIVE); NITRITE,URINE NEGATIVE (NEGATIVE); PH,URINE 6 (4.5-8.0); PROTEIN,URINE 3+ (NEGATIVE); UROBILINOGEN,URINE NORMAL MG/DL (0.0-1.0)
[2019-05-01 23:00] VITALS: BP 130/65
[2019-05-01] MEDS ORDERED: cefTRIAXone 1 GM in NS 55 ML IVPB ONE (23:00)
--- NOTE | 2019-05-01 23:15 | NUR ---
TRANSFER TO FLOOR: Patient transferred to [facility] 402-2 as ordered, per cecelia george. Report given to seda rizo. patient in stable condition. pt transfered to floor via gurney with all belongings. belongings list and admission packet sent with patient. accompanied by angélica
--- NOTE | 2019-05-02 00:10 | NUR ---
NURSE NOTES: pt transferred to floor via gurney accompanied by electronic train control technician. report received from Tre RN. pt is agitated, trying to OOB and resistive to care. also attempted pull out IV on left AC. no s/s of acute distress noted. call light within reach. bed is the lowest position and alarmed on. will continue to provide plan of care.
[2019-05-02] MEDS ORDERED: LORazepam Inj 2mg/ml 1ml IV PRN (00:45)
[2019-05-02] MEDS: D5 1/2NS 1,000 ML IV SCH ×3 (01:17→20:52)
[2019-05-02 04:00] VITALS: BP 97/53
--- NOTE | 2019-05-02 06:45 | History and Physical Report ---
DATE OF ADMISSION: 05/01/2019 CHIEF COMPLAINT: The patient with left breast CA, admitted for surgery and also the patient has urinary tract infection. HISTORY OF PRESENT ILLNESS: The patient is an 84-year-old female with history of psychosis in locked unit and was admitted prior to her surgery. The patient is very difficult to control and check labs and to prepare for the surgery. Therefore, the patient was admitted before that because of her severe psychosis. She was seen in the locked unit and needed to be stabilized prior to have her surgery done. She is very difficult to obtain any history because she cannot communicate. PAST MEDICAL HISTORY: Significant for dementia Alzheimer's type, osteoarthritis, hyperlipidemia, atherosclerotic cardiovascular disease, hypertension, COPD, weakness, and anemia. FAMILY HISTORY: Not available. SOCIAL HISTORY: Resides at [facility]. MEDICATIONS: The patient is on lorazepam p.r.n., ceftriaxone 1 g IV daily, and she is receiving IV D5 half-normal saline at 100 mL/h. PHYSICAL EXAMINATION: VITAL SIGNS: Temperature 98.1, pulse of 69, respiratory rate of 18, blood pressure 130/65, and O2 saturation 95% on room air. LUNGS: Coarse breath sounds bilateral. No wheezing. BREASTS: The patient has left breast mass, irregularly shaped, somewhat fixed to the chest wall. CARDIOVASCULAR: Regular rate. S1 and S2. ABDOMEN: Soft. Bowel sounds present. EXTREMITIES: No edema, clubbing, or cyanosis. NEUROLOGIC: Alert. Moves extremities. No focal sensory motor deficits. The patient is able to ambulate. Cranial nerves grossly intact II through XII. LABORATORY DATA: WBC 9, hemoglobin 13.4, and platelet count of 199,000. Sodium 145, potassium 4.4, chloride 107, bicarbonate of 28, BUN of 27, creatinine 1.1, and glucose 114. Lactic acid 1.4. Calcium 9.9. Phosphorus 4.2. Her CPK is slightly elevated at 1263. CK-MB is only 6. Troponin 0.010. Her BNP was 176. Albumin 3.3. Lipase 66. Her coags are unremarkable. ABG - pH 7.43, pCO2 of 32, and pO2 of 64. Her UA showed leukocyte esterase 3+ and WBC too numerous to count. IMPRESSION: 1. Urinary tract infection. The patient will be continued on Rocephin. 2. Hypertension. Blood pressure is controlled. 3. COPD. She will be on bronchodilator. 4. Dementia and psychosis. We will obtain psych consult. 5. Left breast mass, which is going to be resected. The patient has irregularly shaped mass of the left breast. 6. Rhabdomyolysis. 7. Hypernatremia. 8. Failure to thrive. PLAN: The patient will be on Rocephin and IV hydration. It is very difficult to control the patient. The patient was in locked unit and her medical condition has been maximally optimized for the procedure. She has to wait further for the surgery and if it is not done soon, other complications may arise due to the patient's psychosis, was discussed this with General Surgery. The patient's medical condition has been maximally optimized for the procedure. She may proceed to surgery. Jose Francisco Winters M.D. DR: DAMIEN JOB#: [id number] CC:
[2019-05-02 07:25] LABS: BASOPHILS % (AUTO) 0.6 % (0.0-2.0); EOSINOPHILS % (AUTO) 4.9 % (0.0-3.0); HEMATOCRIT 37.8 % (37.0-47.0); HEMOGLOBIN 12.4 G/DL (12.0-16.0); MEAN CORPUSCULAR VOLUME 90 FL (80-99); MONOCYTES % (AUTO) 9.7 % (1.0-10.0); NEUTROPHILS % (AUTO) 68.9 % (45.0-75.0); PLATELET COUNT 197 K/UL (150-450); RED BLOOD COUNT 4.19 M/UL (4.20-5.40); RED CELL DISTRIBUTION WIDTH 12.5 % (11.6-14.8); WHITE BLOOD COUNT 7.7 K/UL (4.8-10.8)
--- NOTE | 2019-05-02 07:35 | NUR ---
NURSE NOTES: Received patient A/A/Ox1, sitter @ bedside, Tamela due to pulling out tubings and attempt of getting out of bed. patient asleep with unlabored breathing. HOB elevated for aspiration precaution. siderails are up x3, bed locked and alarm activated. IV access patent and intact. IVF infusing well. call light is within reach. will cont to monitor.
[2019-05-02] MEDS: Albuterol/Ipratropium 3ml neb HHN SCH ×3 (07:53→18:41)
--- NOTE | 2019-05-02 07:59 | NUR ---
HAND-OFF: Report given to Heather BLOCK.
[2019-05-02 08:00] VITALS: BP 108/56
[2019-05-02 12:00] VITALS: BP 110/60
--- NOTE | 2019-05-02 13:43 | Cardiology Report ---
APPROVED REPORT EKG Measurement Heart [id number] Normal sinus rhythm Possible Left atrial enlargement Low voltage QRS Borderline ECG
--- NOTE | 2019-05-02 13:54 | Diagnostic Imaging Report ---
Indication: Shortness of breath Technique: One view of the chest Comparison: 03/16/2019 Findings: There is some atelectasis at the left lung base. This is decreased from the previous exam. There is probably some pleural fluid on the left. The lungs and pleural spaces are otherwise clear. The heart size is normal. The aorta is tortuous and calcified Impression: Left basilar atelectasis and pleural fluid
--- NOTE | 2019-05-02 14:57 | NUR ---
NURSE NOTES: PMD SIGNED THE SURGICAL CONSENT ON BEHALF OF THE PATIENT. CALLED SURGERY TO INFORMED ABOUT THE CONSENT. THEY WILL CALL BACK IF PATIENT WILL BE A CANDIDATE FOR SURGERY. DR. HERNANDEZ CALLED BACK AND GAVE DISCHARGE ORDER TO GO BACK TO [facility] AND HE WILL TAKE CARE OF THE [facility] REC. WILL CONT THE PLAN OF CARE.
--- NOTE | 2019-05-02 15:38 | NUR ---
DISCHARGE PLANNED: PATIENT REFERRED BACK TO [facility] T: [phone] FOR NURSE TO NURSE REPORT ROOM# 208#C [facility] PICKUP TIME @ 1800
--- NOTE | 2019-05-02 15:55 | NUR ---
CASE MANAGEMENT: INITIAL REVIEW 84YR OLD FEMALE BIBA FROM [facility] CC: GENERAL COMPLAINT SI: LEFT BREAST MASS . UTI . RHABDOMYOLYSIS . COPD . HTN 98.1 74 20 113/54 92% ON RA BUN 27 BG 114 TCK 1263 CKMB6.0 ABG: pCO2 32.3 pCO2 32.3 HCO3 21.2 O2 SAT 92.5 IS: IVF NS BOLUS X2 IV ROCEPHIN X1 \: 4E MED SURG
[2019-05-02 16:00] VITALS: BP 109/43
--- NOTE | 2019-05-02 16:09 | NUR ---
NURSE NOTES: surgery dept, Ileana called to inform that the surgery will not be done today.
[2019-05-02] MEDS ORDERED: ROCEPHIN250 MG IM (17:02)
--- NOTE | 2019-05-02 17:10 | NUR ---
NURSE NOTES: Discharge order noted. Dr. Winters called for discharge medications. New order received.
--- NOTE | 2019-05-02 17:44 | NUR ---
NURSE NOTES: called and left vm to Dr. Winters re: diet prior d/c. awaiting for a response. Addendum: 05/02/19 at 1756 by JD NEFF LVN diet order obtained.
--- NOTE | 2019-05-02 17:51 | NUR ---
NURSE NOTES: report given to Jewel @ [facility]. left vm to Aliyah, next of kin for discharge.
--- NOTE | 2019-05-02 19:16 | NUR ---
HAND-OFF: Report given to Nazia.
[2019-05-02 20:00] VITALS: BP 118/60
--- NOTE | 2019-05-02 20:10 | NUR ---
NURSE NOTES: Received pt sleeping in bed. On room air. IV intact and running D5 1/2 NS @ 100cc. No acute distress noted at this time. Waiting ambulance for discharge. Fall precaution maintained. Bed locked, lowest position, alarm on, side rails up x 2, call light within reach. Will continue to monitor.
--- NOTE | 2019-05-02 22:05 | NUR ---
NURSE NOTES: Pt is discharged to [facility]. @ 2200. AAO x 1, on room air. All medical devices such as IV and ID band were removed. At this time pt does not request medications, equipment or placement. Vitals are stable. Pt is [facility] by [facility], Unit 617. Pt has no belongings.
--- NOTE | 2019-05-04 16:11 | Discharge Summary ---
Discharge Summary Discharge Summary _ DATE OF ADMISSION: 05/01/2019 DATE OF DISCHARGE: 05/02/2019 DISCHARGED BY: Dr. Jose Francisco Winters CONSULTANTS: Dr. Josué Viera BRIEF HOSPITAL COURSE: Patient is an 85-year-old female with history of psychosis in locked unit, history of left breast mass, noncommunicative, dementia, presented to ED prior to surgery. Patient is difficult to control and check labs and to prepare for surgery. Patient needed to be stabilized prior to the surgery date. She has medical history significant for dementia Alzheimer's type, osteoarthritis, hyperlipidemia, atherosclerotic cardiovascular disease, hypertension, COPD, weakness and anemia. Upon evaluation at the ED, vital signs were stable. Preop labs were obtained. EKG was in normal sinus rhythm with no acute ST elevation. Chest x-ray did not show any acute disease. Urinalyses showed 3+ leukocyte esterase, WBC too numerous to count. She was admitted for UTI. She was given empirically Rocephin. She was given IV hydration. She was provided a sitter for patient safety. Patient needs to be optimized prior to surgery. Patient was eventually discharged back to [facility]. To continue antibiotic treatment. FINAL DIAGNOSES: Urinary tract infection Left breast mass Hypertension COPD Dementia and psychosis Rhabdomyolysis Hyponatremia Failure to thrive DISPOSITION: DC back to [facility]. DISCHARGE MEDICATIONS: Refer to Discharge Medication List. I have been assigned to complete a discharge summary on this account, I was not involved with the patient's management.--CRISTOPHER Nunez Jacqueline Robles NP May 04, 2019 16:11
== END 2019-05-02 22:00 | DRG 690 ==
LOC: EDBD 20:16 → EMR 20:30 → 4E 22:22 → EDBEDREQ 22:34 → 4E 23:39
DX: N39.0 Urinary tract infection, site not specified (principal); M62.82 Rhabdomyolysis; E87.0 Hyperosmolality and hypernatremia; F05 Delirium due to known physiological condition; N63.0 Unspecified lump in unspecified breast; J44.9 Chronic obstructive pulmonary disease, unspecified; E78.5 Hyperlipidemia, unspecified; R62.7 Adult failure to thrive; M19.90 Unspecified osteoarthritis, unspecified site; G30.9 Alzheimer's disease, unspecified; F02.80 Dementia in other diseases classified elsewhere, unspecified severity, without behavioral disturbance, psychotic disturbance, mood disturbance, and anxiety; I10 Essential (primary) hypertension; Z68.22 Body mass index [BMI] 22.0-22.9, adult
CPT/HCPCS: 36415; 36600; 71045; 80053; 81003; 82378; 82550; 82553; 82803; 83605; 83690; 83735; 83880; 84100; 84484; 85025; 85610; 85730; 86300; 86301; 86850; 86900; 86901; 87040; 87081; 87086; 87181; 93005; 94640; 96361; 96365; 99285; J7030; J7620

== ENCOUNTER 2019-05-05 09:22 | Day surgery (SDC) | payer MEDICARE, MEDICAID ==
[~2019-05-05] VITALS: Ht 172.7 cm; Wt 64.4 kg
[~2019-05-05 09:22] MED LIST changes: +ACETAMINOPHEN500 M5 ORAL; +CRANBERRY400 M1 PO; +DUONEB 0.5-3(2.53 ML HHN; +MILK OF MA400 MG/51 ORAL; +ROCEPHIN250 MG IM; +ZYPREXA7.5 MG ORAL
[2019-05-05] MEDS ORDERED: REMERON15 M1 ORAL (10:48)
[2019-05-05] MEDS ORDERED: DUONEB 0.5-3(2.53 ML HHN (10:48)
[2019-05-05] MEDS ORDERED: ROCEPHIN2 GM IM (10:50)
[2019-05-05 10:55] VITALS: BP 128/59
[2019-05-05 11:24] LABS: BASOPHILS % (AUTO) 0.6 % (0.0-2.0); HEMATOCRIT 35.6 % (37.0-47.0); HEMOGLOBIN 11.7 G/DL (12.0-16.0); LYMPHOCYTES % (AUTO) 25.7 % (20.0-45.0); MEAN CORPUSCULAR VOLUME 89 FL (80-99); MONOCYTES % (AUTO) 10.9 % (1.0-10.0); NEUTROPHILS % (AUTO) 56.8 % (45.0-75.0); PLATELET COUNT 193 K/UL (150-450); RED CELL DISTRIBUTION WIDTH 11.7 % (11.6-14.8)
[2019-05-05 11:28] LABS: ANION GAP 8 mmol/L (5-15); BLOOD UREA NITROGEN 23 mg/dL (7-18); CALCIUM 8.9 MG/DL (8.5-10.1); CARBON DIOXIDE 27 MMOL/L (21-32); CHLORIDE 105 MMOL/L (98-107); CREATININE 0.9 MG/DL (0.55-1.30); POTASSIUM 4.1 MMOL/L (3.5-5.1); SODIUM 140 MMOL/L (136-145)
--- NOTE | 2019-05-05 12:30 | NUR ---
PROCEDURE WAS CANCELLED DUE TO NO CONSENT AVAILABLE FROM CONSERVATOR.SPOKE WITH RADHAMES LIZAMA,[facility], HE SAID THEY HAVE NOT RECEIVE APPROVAL FROM THE COURT. NOTIFIED DR NAVA AND WAS TOLD OF SITUATION. HE CANCELLED SURGERY AND ORDERED TO SENT BACK PT TO [facility]. SPOKE WITH TONY FROM [facility] AND WAS INFORMED OF CANCELLED PROCEDURE DUE TO NO CONSENT FROM CONSERVATOR.[id number]=PT DISCHARGED VIA AMBULAM
--- NOTE | 2019-05-05 13:44 | Discharge Instructions ---
Discharge Instructions Discharge Instructions Follow up with: pcp Diet: 4 GM sodium (no salt added), low fat Resume Normal Activity?: Yes Activity: as tolerated For Surgical Patients May shower: Yes For Congestive Heart Failure Reminder Report to your physician any weight gain of 5 pounds or more in one week. Christos Barrientos MD May 05, 2019 13:44
--- NOTE | 2019-05-05 15:20 | NUR ---
PT WAS DISCHARGE VIA AMBULANCE BACK TO [facility].
--- NOTE | 2019-05-05 15:30 | Pre-op HX & Phy Repo 2 SIG ---
DATE OF ADMISSION: 05/05/2019 This patient is scheduled for surgery in about an hour. CHIEF COMPLAINT: There is a mass in the left breast. HISTORY OF PRESENT ILLNESS: This is an 84-year-old female, who was found to have a mass in the left breast during the admission to the hospital. In February 2019, the patient was admitted to the hospital for failure to thrive and during physical examination it was noticed that she had a large mass in the left breast. The patient has dementia and is unable to give any history. She lives in a [facility] and there is no record of the breast examination or breast lump. We do not know how long she has had this mass. Apparently, there is no weight loss and we do not have family history. PAST MEDICAL HISTORY: She has a history of COPD, hypertension, and dementia. PAST SURGICAL HISTORY: She has a scar of the midline incision below the umbilicus. ALLERGIES: Apparently she is not allergic to any medication. MEDICATIONS: Please see the medicine reconciliation form, but she had been on Aricept and pantoprazole. SOCIAL HISTORY: The patient is an 84-year-old female, who is a resident of [facility]. There is no history of drinking or smoking. REVIEW OF SYSTEMS: Unobtainable due to the dementia of the patient. PHYSICAL EXAMINATION: GENERAL: The patient appeared to be a well-developed and well-nourished 84-year-old female, in no acute distress. HEENT: Head is normocephalic and atraumatic. Eyes, pupils are equal, round, and reactive to light. Mouth is clear. NECK: There is no palpable thyromegaly or adenopathy. CHEST: Clear to auscultation and good expansion. HEART: There is no gallop or murmur. S1 and S2 are within normal limits. BREASTS: Large and symmetrical. There is no skin or nipple changes. She has a large mass in the left breast at the outer lower quadrant. This mass is about 1 inch in diameter, hard, mobile, but the margins are not very clear. Axilla, there is no adenopathy. ABDOMEN: Soft and flat. There is no palpable organomegaly. EXTREMITIES: Within normal limits. ASSESSMENT: Left breast mass highly suspicious for cancer. PLAN: The patient has been scheduled for left breast lumpectomy and this mass is highly suspicious for cancer, but we did a discussion with the PCP and oncologist. It was decided to only perform the lumpectomy and not to proceed with axillary lymph node dissection due to the condition of the patient. Christos Barrientos M.D. DR: SARA JOB#: [id number] CC:
== END 2019-05-05 15:20 | disposition home or self-care (01) ==
LOC: SUR 09:22
DX: N63.20 Unspecified lump in the left breast, unspecified quadrant (principal); Z53.9 Procedure and treatment not carried out, unspecified reason; J44.9 Chronic obstructive pulmonary disease, unspecified; I10 Essential (primary) hypertension; F03.90 Unspecified dementia, unspecified severity, without behavioral disturbance, psychotic disturbance, mood disturbance, and anxiety
CPT/HCPCS: 36415; 80048; 85025

== ENCOUNTER 2019-08-11 08:44 | Day surgery (SDC) | payer MEDICARE, MEDICAID ==
--- NOTE | 2019-08-02 18:30 | Pre-op HX & Phy Repo 2 SIG ---
DATE OF ADMISSION: 08/02/2019 This patient had been scheduled for surgery on August 11, 2019. CHIEF COMPLAINT: Lump in the left breast. HISTORY OF PRESENT ILLNESS: This is an 84-year-old female with severe dementia. She was admitted to [facility] in 2019 and during the evaluation, it was noticed that the patient had a large mass in the left breast. Obviously, the patient requires removal of this mass at least for diagnosis but so far as the patient has dementia, we had extreme problems with obtaining the consent and finally the court order was obtained. Apparently, there is no weight loss and we do not have any other information about this patient. PAST MEDICAL HISTORY: Apparently, there is no allergies. She has a history of chronic obstructive pulmonary disease, hypertension, and dementia and there has been a questionable schizophrenia. PAST SURGICAL HISTORY: She has a scar of the midline incision below the umbilicus, but we are not sure what kind of surgery she had. MEDICATIONS: She is on Aricept and pantoprazole. SOCIAL HISTORY: The patient is a 84-year-old female. [facility] and there is no history of drinking or smoking. REVIEW OF SYSTEMS: Unobtainable. PHYSICAL EXAMINATION: GENERAL: The patient appeared to be a well-developed, well-nourished 84-year-old female, in no acute distress. HEENT: Head is normocephalic and atraumatic. Eyes, pupils are equal, round, and reactive to light. Mouth is clear, but edentulous. NECK: There is no palpable thyromegaly or adenopathy. CHEST: Clear to auscultation and percussion. HEART: There is no gallop or murmur. S1 and S2 are within normal limits. BREAST: Breasts are large and symmetrical. There is no skin or nipple changes. She has a large mass in the left lower quadrant of the left breast. This mass is at the size of over an inch in diameter and the margins are not clear. This mass is hard, but mobile. ABDOMEN: Soft and flat. There is no palpable organomegaly. Bowel sounds are audible. EXTREMITIES AND AXILLA: There is no adenopathy. ASSESSMENT: Left breast mass. Rule out malignancy. PLAN: The patient has been scheduled for a left breast lumpectomy. There is no family available to explain the risks and benefits. Christos Barrientos M.D. DR: MIR JOB#: [id number] CC: JD
[2019-08-11] VITALS (8 sets, daily range): BP systolic 120–151; BP diastolic 56–73
[~2019-08-11] VITALS: Ht 172.7 cm; Wt 57.2 kg
[~2019-08-11 08:44] MED LIST changes: +REMERON15 M1 ORAL; +ROCEPHIN2 GM IM; +ceFAZolin sod 1 GM in NS 55 ML IVPB ONE
[2019-08-11 10:11] LABS: BASOPHILS % (AUTO) 0.4 % (0.0-2.0); EOSINOPHILS % (AUTO) 2.2 % (0.0-3.0); HEMATOCRIT 32.2 % (37.0-47.0); HEMOGLOBIN 10.6 G/DL (12.0-16.0); LYMPHOCYTES % (AUTO) 19.8 % (20.0-45.0); MEAN CORPUSCULAR VOLUME 87 FL (80-99); MONOCYTES % (AUTO) 5.3 % (1.0-10.0); NEUTROPHILS % (AUTO) 72.3 % (45.0-75.0); PLATELET COUNT 153 K/UL (150-450); RED CELL DISTRIBUTION WIDTH 13.4 % (11.6-14.8); WHITE BLOOD COUNT 8.1 K/UL (4.8-10.8)
[2019-08-11 10:28] LABS: ANION GAP 13 mmol/L (5-15); BLOOD UREA NITROGEN 15 mg/dL (7-18); CALCIUM 8.5 MG/DL (8.5-10.1); CARBON DIOXIDE 21 MMOL/L (21-32); CHLORIDE 106 MMOL/L (98-107); CREATININE 0.6 MG/DL (0.55-1.30); POTASSIUM 4.2 MMOL/L (3.5-5.1); SODIUM 140 MMOL/L (136-145)
[2019-08-11] MEDS ORDERED: XARELTO10 MG ORAL (10:33)
[2019-08-11] MEDS ORDERED: Bupivacaine 0.25% Inj 30ml INJ ONE (11:56)
[2019-08-11] MEDS ORDERED: fentaNYL 100 mcg/2 mL IV ONE (12:48)
[2019-08-11] MEDS ORDERED: Propofol 200mg/20ml IV ONE (12:49)
--- NOTE | 2019-08-11 12:49 | Pre-Procedure Note/Attestation ---
Pre-Procedure Note/Attestation Complete Prior to Procedure Planned Procedure: left Procedure Narrative: Left breast lumpectomy Indications for Procedure Pre-Operative Diagnosis: Left breast lump Attestation I attest that I discussed the nature of the procedure; its benefits; risks and complications; and alternatives (and the risks and benefits of such alternatives ), prior to the procedure, with the patient (or the patient's legal health and safety representative). I attest that, if there was a reasonable possibility of needing a blood transfusion, the patient (or the patient's legal health and safety representative) was given the [facility] standardized written summary, pursuant to the Waldemar John Blood Safety Act ([place] Health and Safety Code # 1645, as amended). I attest that I re-evaluated the patient just prior to the surgery and that there has been no change in the patient's H&P, except as documented below: Christos Barrientos MD Aug 11, 2019 12:49
[2019-08-11] MEDS ORDERED: NS Irrig 1000ml ONE (13:00)
[2019-08-11] MEDS ORDERED: LR 1000ml ONE (13:00)
[2019-08-11] MEDS ORDERED: Sterile Water Irrig 1000ml IRRIG ONE (13:00)
--- NOTE | 2019-08-11 13:43 | Brief Operative Note ---
Immediate Post Operative Note Operative Note Pre-op Diagnosis: Left breast lump Procedure: left breast lumpectomy Post-op Diagnosis: same as pre-op Findings: consistent w/pre-op dx studies Surgeon: MD Quynh Glove Cuffer: none Anesthesiologist: Dr. Moses Anesthesia: MAC Specimen: yes Complications: none Condition: stable Fluids: per anesthesiologist Estimated Blood Loss: minimal Drains: none Implant(s) used?: No Christos Barrientos MD Aug 11, 2019 13:43
--- NOTE | 2019-08-11 13:47 | Discharge Instructions ---
Discharge Instructions Discharge Instructions Follow up with: my office in one week Diet: regular Resume Normal Activity?: Yes Activity: as tolerated, okay to shower For Surgical Patients Dressing Care: other - leave it alone will be removed by surgeon May shower: Yes For Congestive Heart Failure Reminder Report to your physician any weight gain of 5 pounds or more in one week. Christos Barrientos MD Aug 11, 2019 13:47
--- NOTE | 2019-08-11 13:53 | Anethesia Preoperative Eval ---
Anesthesia Pre-op PMH/ROS General Date of Evaluation: Aug 11, 2019 Time of Evaluation: 12:16 Anesthesiologist: Aurelia ASA Score: ASA 4 Mallampati Score Class I : Soft palate, uvula, fauces, pillars visible Class II: Soft palate, uvula, fauces visible Class III: Soft palate, base of uvula visible Class IV: Only hard plate visible Mallampati Classification: Class III Surgeon: Floyd Diagnosis: L breast mass Surgical Procedure: Lumpectomy Anesthesia History: none Family History: no anesthesia problems Allergies: Coded Allergies: No Known Allergies (Unverified , 03/05/19) Medications: see eMAR Patient NPO?: Yes Past Medical History Cardiovascular: Reports: HTN; Denies: CAD, ND, valve dz, arrhythmia, other Pulmonary: Denies: asthma, COPD, AIDEN, other Gastrointestinal/Genitourinary: Reports: GERD, CRI; Denies: ESRD, other Neurologic/Psychiatric: Reports: dementia, other - schizophrenia, seizers; Denies: CVA, depression/anxiety, TIA Endocrine: Reports: hypothyroidism HEENT: Denies: cataract (L), cataract (R), glaucoma, EMMONAK (L), EMMONAK (R), other Hematology/Immune: Reports: anemia; Denies: DVT, bleeding disorder, other Musculoskeletal/Integumentary: Reports: OA, other - contracted Other: other - malnourished PMH Narrative: as above PSxH Narrative: see H&P Anesthesia Pre-op Phys. Exam Physician Exam Last Vital Signs Date Time Temp Pulse Resp B/P (MAP) Pulse Ox O2 Delivery O2 Flow Rate FiO2 08/11/19 10:20 97.9 75 18 121/69 98 Nasal Cannula 2 Constitutional: NAD Neurologic: other - unable to obtaine Cardiovascular: RRR Respiratory: CTA Gastrointestinal: S/NT/ND Airway Exam Mallampati Score: Class III MO: limited Neck: stiff ROM: limited Teeth: missing Dentures: no upper, no lower Anesthesia Pre-op A/P Labs Hematology Test 08/11/19 09:45 White Blood Count 8.1 K/UL (4.8-10.8) Red Blood Count 3.70 M/UL (4.20-5.40) L Hemoglobin 10.6 G/DL (12.0-16.0) L Hematocrit 32.2 % (37.0-47.0) L Mean Corpuscular Volume 87 FL (80-99) Mean Corpuscular Hemoglobin 28.7 PG (27.0-31.0) Mean Corpuscular Hemoglobin Concent 33.0 G/DL (32.0-36.0) Red Cell Distribution Width 13.4 % (11.6-14.8) Platelet Count 153 K/UL (150-450) Mean Platelet Volume 7.0 FL (6.5-10.1) Neutrophils (%) (Auto) 72.3 % (45.0-75.0) Lymphocytes (%) (Auto) 19.8 % (20.0-45.0) L Monocytes (%) (Auto) 5.3 % (1.0-10.0) Eosinophils (%) (Auto) 2.2 % (0.0-3.0) Basophils (%) (Auto) 0.4 % (0.0-2.0) Coagulation Test 08/11/19 09:45 Prothrombin Time 11.0 SEC (9.30-11.50) Prothromb Time International Ratio 1.0 (0.9-1.1) Activated Partial Thromboplast Time 30 SEC (23-33) Chemistry Test 08/11/19 09:45 Sodium Level 140 MMOL/L (136-145) Potassium Level 4.2 MMOL/L (3.5-5.1) Chloride Level 106 MMOL/L (98-107) Carbon Dioxide Level 21 MMOL/L (21-32) Anion Gap 13 mmol/L (5-15) Blood Urea Nitrogen 15 mg/dL (7-18) Creatinine 0.6 MG/DL (0.55-1.30) Estimat Glomerular Filtration Rate > 60 mL/min (>60) Glucose Level 72 MG/DL (74-106) L Calcium Level 8.5 MG/DL (8.5-10.1) Risk Assessment & Plan Assessment: ASA 4 Plan: MAC Status Change Before Surgery: No Pre-Antibiotics Drug: ANcef 1gr. Given Within 1 Hr of Incision: Yes Time Given: 13:10 Ernesto Moses MD Aug 11, 2019 13:53
--- NOTE | 2019-08-11 13:55 | Immediate Post-Op Evaluation ---
Immediate Post-Op Evalulation Immediate Post-Op Evalulation Procedure: L breast incisional Bx Date of Evaluation: Aug 11, 2019 Time of Evaluation: 13:53 IV Fluids: 500 Blood Products: none Estimated Blood Loss: min Urinary Output: none Blood Pressure Systolic: 124 Blood Pressure Diastolic: 76 Pulse Rate: 60 Respiratory Rate: 20 O2 Sat by Pulse Oximetry: 99 Temperature (Fahrenheit): 97.4 Pain Score (1-10): 1 Nausea: No Vomiting: No Complications none Patient Status: reacts, patent, none Hydration Status: adequate Ernesto Moses MD Aug 11, 2019 13:55
--- NOTE | 2019-08-11 14:45 | Discharge Instructions ---
Discharge Instructions Discharge Instructions Follow up with: my office in my office one week Diet: regular Resume Normal Activity?: Yes Activity: as tolerated For Surgical Patients Dressing Care: other - leave it alone will be removed by surgeon For Congestive Heart Failure Reminder Report to your physician any weight gain of 5 pounds or more in one week. Christos Barrientos MD Aug 11, 2019 14:45
--- NOTE | 2019-08-11 17:45 | Operative Note - Dictated ---
DATE OF OPERATION: 08/11/2019 PREOPERATIVE DIAGNOSIS: Left breast lump. POSTOPERATIVE DIAGNOSIS: Left breast lump. OPERATION: Left breast lumpectomy. COMPLICATION: None. SURGEON: Christos Barrientos M.D. EDUCATIONAL ASSISTANT: None. ANESTHESIA: Local with MAC. ANESTHESIOLOGIST: Ernesto Moses M.D. INDICATION: This is an 84-year-old female, who was found to have a lump in the left breast about 4 months ago during the evaluation for admission to the hospital. The patient has severe dementia and cannot give any history. We are not sure how long she has had this lump. Physical examination showed a hard lump in the left breast at the upper outer quadrant close to the periphery. This lump is hard, over 1 inch in diameter, and the margins are not clear, but it is mobile. There is no adhesion to the skin or the deep tissues and there is no adenopathy in the axilla. DESCRIPTION OF PROCEDURE: The patient was placed supine on the operating table. After IV sedation, the left breast was properly prepped and draped. Curved incision was given over the mass and was carried sharply through subcutaneous tissue. The mass was identified and was anchored down. Then, the mass and the normal surrounding tissue was removed with the help of the Bovie. The mass was completely removed. The bleeding points were controlled. Cavity was irrigated with antibiotic solution. The cavity was obliterated with multiple sutures of 2-0 chromic. The skin was approximated with running subcuticular suture of 4-0 Monocryl. Prior to giving the incision, the area was anesthetized with the help of 20 mL of Marcaine 0.25%. The patient tolerated the procedure very well and was transferred to recovery room in stable condition. The sponge and needle count correct. ESTIMATED BLOOD LOSS: 5 mL. CONDITION: Condition of the patient at the end of procedure was stable. Christos Barrientos M.D. DR: Brian JOB#: [id number] CC:
[2019-08-12 09:25] VITALS: BP 136/78
--- NOTE | 2019-08-12 09:25 | 48 Hour Post Anesthesia Eval ---
Post Anesthesia Evaluation Procedure: L breast incisional Bx Date of Evaluation: Aug 11, 2019 Time of Evaluation: 14:20 Blood Pressure Systolic: 136 0: 78 Pulse Rate: 68 Respiratory Rate: 20 Temperature (Fahrenheit): 97.6 O2 Sat by Pulse Oximetry: 98 Airway: patent Nausea: No Vomiting: No Pain Intensity: 2 Hydration Status: adequate Cardiopulmonary Status: stable Mental Status/LOC: patient returned to baseline Follow-up Care/Observations: n/a Post-Anesthesia Complications: none Follow-up care needed: ready to discharge Ernesto Moses MD Aug 12, 2019 09:25
== END 2019-08-11 14:40 | disposition home or self-care (01) ==
LOC: SUR 08:44
DX: N63.21 Unspecified lump in the left breast, upper outer quadrant (principal); F03.90 Unspecified dementia, unspecified severity, without behavioral disturbance, psychotic disturbance, mood disturbance, and anxiety; J44.9 Chronic obstructive pulmonary disease, unspecified; I10 Essential (primary) hypertension; Z79.899 Other long term (current) drug therapy; K21.9 Gastro-esophageal reflux disease without esophagitis; N18.9 Chronic kidney disease, unspecified; F20.9 Schizophrenia, unspecified; G40.909 Epilepsy, unspecified, not intractable, without status epilepticus; M19.90 Unspecified osteoarthritis, unspecified site; E46 Unspecified protein-calorie malnutrition; Z68.1 Body mass index [BMI] 19.9 or less, adult; E03.9 Hypothyroidism, unspecified
CPT/HCPCS: 19301; 36415; 80048; 85025; 85610; 85730; 93005; J0690; J2704; J3010; J3490; J7120; 94003; 94150